=== PATIENT | male | born 1985 | race Caucasian/White ===

== ENCOUNTER 2020-07-26 06:51 | Emergency (ER) | payer MEDICARE, MEDICAID, SELFPAY ==
[2020-07-26 06:53] VITALS: BP 141/84; PULSE 65; RESP 16; TEMP 36.1; O2SAT 99; BMI 24.4
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
[2020-07-26] MEDS: Tetracaine 0.5% Ophthalmic Bottle 1 DRP LEFT EYE (07:15)
[2020-07-26] MEDS: Gentamicin Sulfate 1 OPTH.BTL 1 DRP LEFT EYE (07:30)
== END 2020-07-26 07:45 | disposition home or self-care (01) ==
LOC: ED 07:44
PROVIDERS: Emergency Provider Emergency Medicine
DX: S05.02XA Injury of conjunctiva and corneal abrasion without foreign body, left eye, initial encounter (principal); X58.XXXA Exposure to other specified factors, initial encounter; Z87.891 Personal history of nicotine dependence
CPT/HCPCS: 99282

== ENCOUNTER → 2024-09-12 | Outpatient (CLI) | payer MEDICARE, MEDICAID, SELFPAY ==
[2024-09-12 11:55] LABS: Absolute Lymphocyte Count 3.28 X10^3/uL (0.83-4.51); Absolute Neutrophil Count 5.8 X10^3/uL (2.0-7.7); Basophil# 0.07 X10^3/uL; Basophil% 0.7 % (0-1); Eosinophil# 0.31 X10^3/uL; Hematocrit 44.1 % (40-54); Hemoglobin 14.6 g/dL (13.0-16.5); Lymphocyte # 3.28 X10^3/ul (0.83-4.51); Lymphocyte % 31.7 % (19-41); Mean Corp Hgb Conc 33.1 g/dL (32-36); Mean Corpuscular Volume 84.6 fL (80-94); Mean Platelet Vol. 9.9 fl (6.2-12.0); Monocyte# 0.81 X10^3/uL; Monocyte% 7.8 % (0-10); NRBC Flagged by Analyzer 0 % (0-5); Neutrophil # 5.84 X10^3/uL (2.7-7.7); Neutrophil % 56.4 % (47-70); Platelet Count 233 K/mm3 (150-450); RBC Distribution Width CV 12.9 % (11.6-14.6); RBC Distribution Width SD 39.7 fl (35.1-43.9); Red Blood Count 5.21 M/mm3 (4.6-6.2); White Blood Count 10.4 K/mm3 (4.4-11.0)
[2024-09-12 12:21] LABS: ALB/GLOB Ratio 1.4 RATIO (0.9-2.4); AST(SGOT) 21 U/L (15-37); Alanine Aminotransfer ALT/SGPT 31 U/L (16-61); Albumin, Serum 4.2 g/dL (3.2-5.0); Alkaline Phosphatase 64 U/L (45-117); Anion Gap 5 (5-15); BUN 13 mg/dL (7-18); BUN/Creat Ratio 13.1 RATIO (10-20); Calcium,Total 9.4 mg/dL (8.5-10.1); Chloride 108 mmol/L (98-107); EST Glomerular Filtration Rate 89 mL/min (>60); Est Glom Filt Rate - Afr Amer 108 mL/min (>60); Glucose 85 mg/dL (74-106); Potassium 3.8 mmol/L (3.5-5.1); Protein, Total 7.2 g/dL (6.4-8.2); Sodium Level 141 mmol/L (136-145)
== END | disposition home or self-care (01) ==
LOC: LAB 11:25
PROVIDERS: PCP Nurse Practitioner Family; Referring Provider Nurse Practitioner Acute Care; Visit Provider Nurse Practitioner Acute Care
DX: K62.5 Hemorrhage of anus and rectum (principal); R11.2 Nausea with vomiting, unspecified; R10.30 Lower abdominal pain, unspecified
CPT/HCPCS: 36415; 80053; 85025

== ENCOUNTER → 2024-10-03 | Outpatient (CLI) | payer MEDICARE, MEDICAID, SELFPAY ==
--- NOTE | 2024-10-03 08:33 | US_ITS ---
PROCEDURE: ABDOMEN LIMITED REASON FOR EXAM: N/V PAIN Lower abdominal pain. COMPARISON: None FINDINGS: Liver: Diffusely echogenic suggesting fatty infiltration. It measures 15.4 cm. Gallbladder: No stones, sludge, wall thickening or tenderness. Common bile duct: Normal measuring it measures 3 mm.. Pancreas: Visualized portions are sonographically unremarkable. Visualized portions of the right kidney are unremarkable. No right upper quadrant ascites. US/Abdomen Limited IMPRESSION: Fatty infiltration of the liver. Reading Location: [place] [address]
== END | disposition home or self-care (01) ==
LOC: US 08:31
PROVIDERS: PCP Nurse Practitioner Family; Referring Provider Nurse Practitioner Acute Care; Visit Provider Nurse Practitioner Acute Care
DX: R10.30 Lower abdominal pain, unspecified (principal); R11.2 Nausea with vomiting, unspecified
CPT/HCPCS: 76705

== ENCOUNTER 2024-11-22 09:12 | Day surgery (SDC) | payer MEDICARE, MEDICAID, SELFPAY ==
[2024-11-22] VITALS (10 sets, daily range): BP systolic 99–120; BP diastolic 57–66; PULSE 53–81; RESP 16–18; TEMP 36.2; O2SAT 97–100; BMI 24.7
[2024-11-22] MEDS: Lactated Ringers 1,000 ML 15 ML IV (09:42)
--- NOTE | 2024-11-22 09:50 | PRE.ANES_ITS ---
ASA Classification* ASA Classification ASA Classification: 2 Assessment & Plan Anesthesia* Anesthesia Assessment Anesthesia Assessment: Discussed sedation and/or anesthesia options, risks, benefits, and alternatives with patient/parents/legal guardian/POA. Questions invited. The patient/parents/legal guardian/POA seems to understand and agrees to proceed with anesthesia plan. Reviewed the physical assessment, medical history, allergy history and patient home medications list prior to surgery/procedure/anesthetic and documented any changes. Performed airway and anesthesia risk assessments. Anesthesia Type Anesthesia Type: MAC History Source History Obtained from:: Patient and Chart Anesthesia Focused Assessment* Temperature: 97.1 F Pulse Rate: 81 Blood Pressure: 120/63 Respiratory Rate: 16 Pulse Ox: 100 Oxygen Delivery Method: Room Air Airway Assessment Mouth opens: >3 cm Mallampati Score: I Teeth Condition: Intact Neck Range of motion (ROM): Full ROM Focused Labs Anesthesia Preop lab: CBC WBC 10.4 K/mm3 (4.4-11.0) 09/12/24 11:28 09/12/24 RBC 5.21 M/mm3 (4.6-6.2) 09/12/24 11:28 09/12/24 Hgb 14.6 g/dL (13.0-16.5) 09/12/24 11:28 09/12/24 Hct 44.1 % (40-54) 09/12/24 11:28 09/12/24 Plt Count 233 K/mm3 (150-450) 09/12/24 11:28 09/12/24 CHEMISTRY Potassium 3.8 mmol/L (3.5-5.1) 09/12/24 11:28 09/12/24 Sodium 141 mmol/L (136-145) 09/12/24 11:28 09/12/24 BUN 13 mg/dL (7-18) 09/12/24 11:28 09/12/24 Creatinine 1.00 mg/dL (0.70-1.30) 09/12/24 11:28 09/12/24 Glucose 85 mg/dL (74-106) 09/12/24 11:28 09/12/24 TSH 2.53 uIU/mL (0.358-3.74) 08/13/14 15:46 COAG Pre-Assessment Diagnosis/Proposed Procedure Planned Operative Procedure(s): COLONOSCOPY Anesthesia History 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 When Was Last Pacemaker Check QUESTION #4 FULL TEXT: You/Your Family Experience fever (hyperthermia) with Anesthesia Last Oral Intake Last Oral intake: Last Oral Intake NPO since 06:00 11/22/24 09:33 Meds taken in AM with sips of No 11/22/24 09:33 water? Meds patient instructed to take am of surgery Any additional information?: Yes NPO since: 06:00 (Patient finished prep at 6 AM.) PONV PONV - catering administrative assistant: PONV - catering administrative assistant Female No 11/19/24 14:31 HX of Motion Sickness No 11/19/24 14:31 HX of N/V After Surgery Yes 11/19/24 14:31 Non-Smoker Yes 11/19/24 14:31 Duration of Surgery greater No 11/19/24 14:31 than 60 minutes Number of Risk Factors 2 11/19/24 14:31 PONV Score Moderate Risk 11/19/24 14:31 Height & Weight Height & Weight: Anesthesia: Height & Weight Height 6 ft 11/22/24 09:33 Weight: 82.554 kg 11/22/24 09:33 Body Mass Index (BMI) 24.7 11/22/24 09:33 Respiratory Assessment Respiratory Assessment - catering administrative assistant: Respiratory Tract Infection Hx - catering administrative assistant Hx Respiratory Tract Infection No 11/19/24 14:31 STOP Sleep Apnea STOP Sleep Apnea - catering administrative assistant: STOP Sleep Apnea - catering administrative assistant Hx Hypertension No 11/19/24 14:31 Hx Sleep Apnea No 11/19/24 14:31 CPAP BIPAP Do you snore loudly (louder No 11/19/24 14:31 than talking or can be heard Do you often feel tired/ No 11/19/24 14:31 fatigued/ sleepy during daytime? Has anyone observed you stop No 11/19/24 14:31 breathing during sleep? STOP Results Negative 11/19/24 14:31 QUESTION #5 FULL TEXT : Do you snore loudly (louder than talking or can be heard through closed doors)? Tobacco Use History Tobacco Use History - catering administrative assistant: Tobacco Use History - catering administrative assistant Tobacco Use Smoking Status Former smoker 11/19/24 14:31 Hx Tobacco Use Yes: CINDI DAILY 11/19/24 14:31 Years Smoking Packs Smoked per Day Smoking Cessation Date was No - quit smoking greater 11/19/24 14:31 within the last 15 years than 15 years ago Hx Smoking Cessation Date Hx Smoking Cessation Counseling Any additional information?: Yes Smoking Status: Current every day smoker (Patient smoked marijuana this morning.) Hematologic Medial History Hematologic Hx - catering administrative assistant: Hematologic 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 Specify any problems Hx of Preganancy in last 3 N/A 11/19/24 14:31 Months Nurse Filling Out Transfusion [facility] 11/19/24 14:31 & Questions: Date: 11/19/24 11/19/24 14:31 Time: 14:37 11/19/24 14:31 Patient unable to answer at this time (ie. confused, unrespo /Reproduction History /Reproductive History - catering administrative assistant: /Reproductive Hx- catering administrative assistant Hx Now Gestational Age (in weeks): EDC: Hx Hx Para Hx Section SAB Active Medications Active Medications: Current Medications Generic Name Dose Route Start Last Admin Trade Name Freq PRN Reason Stop Dose Admin Lactated Ringer's 1,000 mls @ 15 mls/hr 11/22/24 09:45 11/22/24 09:42 IV 15 mls/hr .Q48H FRANK Administration PFSH Medical History Wears glasses Depression Anxiety Marijuana use Fatty liver High cholesterol Migraine headache Non-smoker Home Medications ?Medication ?Instructions ?Recorded ?Last Taken ?Type peg 3350-electrolytes 236 240 ml PO Q10M #4,000 mL Unknown Rx gram-22.74 gram-6.74 gram-5.86 gram solution (Golytely) polyethylene glycol 3350 17 238 g PO .COMPLEX #238 gra ms 11/19/24 Unknown Rx gram/dose oral powder (Miralax) Allergy/AdvReac Type Severity Reaction Status Date / Time No Known Allergies Allergy Verified 11/22/24 09:29 Surgical History (Updated 11/22/24 @ 09:[address] Jarocho Houston MD) Enlarged adenoids History of wisdom tooth extraction Social History Smoking Status: Current every day smoker (marijuana) Review of Systems (Anesthesia) ROS Narrative System reviewed and no additional complaints, except as documented.
--- NOTE | 2024-11-22 10:37 | PCM.HP.STD ---
HPI - General General Date of Admission: 11/22/24 Date of Service: 11/22/24 Chief Complaint: Lower GI bleeding HPI Narrative ELAINA RENE is a 39 M who presentsChief Complaint: pain and bleeding Details: ELAINA RENE is a 39 M who presents to the office today for - rectal bleeding, intermittent, can be really bad colors water red - with bowel movements - has a BM daily - bleeding has been ongoing for a couple years - c/o lower abdominal pain - not related to PO intake - non-radiating, intermittent, not always associated with a BM - denies any constipation or diarrhea - denies any straining with BM - intermittent rectal pain after a BM - dull, ache - was on dicyclomine in the past and this caused constipation - c/o nausea associated with headache - reports after vomiting he has resolution of nausea and ROBLEDO - he does endorse N/V without headaches - denies any weight loss - rare HB - vomiting is at least once a month - cannabis smoker - regularly - started smoking in college - denies any EtOH use - rare use of IBU - Caffeine 2-3 cups per day PFSH Medical History Wears glasses Depression Anxiety Marijuana use Fatty liver High cholesterol Migraine headache Non-smoker Home Medications ?Medication ?Instructions ?Recorded ?Last Taken ?Type peg 3350-electrolytes 236 240 ml PO Q10M #4,000 mL 09/12/24 Unknown Rx gram-22.74 gram-6.74 gram-5.86 gram solution (Golytely) polyethylene glycol 3350 17 238 g PO .COMPLEX #238 grams 11/19/24 Unknown Rx gram/dose oral powder (Miralax) Allergy/AdvReac Type Severity Reaction Status Date / Time No Known Allergies Allergy Verified 11/22/24 09:29 Surgical History Enlarged adenoids History of wisdom tooth extraction Social History Smoking Status: Current every day smoker (Patient smoked marijuana this morning.) ROS Constitutional Constitutional: Denies fatigue, fever(s), poor appetite, weight gain or weight loss Gastrointestinal Gastrointestinal: Denies belching, bloating, change in bowel habits, change in stool character, chewing difficulty, coffee ground emesis, constipation, cramping, diarrhea, dyspepsia, dysphagia, early satiety, excessive flatus, fecal incontinence, heartburn, hematemesis, hematochezia, hemorrhoids, loose stools, melena, nausea, odynophagia, rectal bleeding, tenesmus, vomiting or weight changes Vital Signs Vital Signs Vital Signs: 11/22/24 09:31 11/22/24 09:33 11/22/24 09:57 Temperature 97.1 F L 97.1 F L Temperature Source Temporal Pulse Rate 81 81 Respiratory Rate 16 16 Respiratory Pattern Normal Blood Pressure 120/63 120/63 Blood Pressure Mean 82 Blood Pressure Source Monitor Blood Pressure Position Semi-Fowlers Blood Pressure Location Left Arm Pulse Ox 100 100 Oxygen Delivery Method Room Air Room Air Weight Weight: 182 lb Body Mass Index (BMI) 24.7 Physical Exam Const alert, oriented x3, no apparent distress and healthy appearing General Appearance: cooperative GI normal to inspection, nondistended, normoactive bowel sounds, soft to palpation, non-tender and non-distended Percussion: normal to percussion Rectal Exam: deferred Assessment & Plan Assessment/Plan (1) Rectal bleeding: (2) Lower abdominal pain: PLAN: Assessment and Plan Assessment and Plan (1) Abdominal symptoms: (2) Nausea & vomiting: Status: Acute (3) Lower abdominal pain: Status: Acute (4) Rectal bleeding: Status: Acute Orders: Orders CBC W/Diff, Automated Today K62.5 - Hemorrhage of anus and rectum, R10.30 - Lower abdominal pain, unspecified, R11.2 - Nausea with vomiting, unspecified Comprehensive Metabolic Profil Today K62.5 - Hemorrhage of anus and rectum, R10.30 - Lower abdominal pain, unspecified, R11.2 - Nausea with vomiting, unspecified Abdomen Limited Today R10.30 - Lower abdominal pain, unspecified, R11.2 - Nausea with vomiting, unspecified Medications: New pantoprazole take once daily 30 minutes before breakfast 40 mg PO QDAY 90 tabs 1RF peg 3350-electrolytes 236-22.74-6.74 -5.86 gram (Golytely) take as directed for split dose bowel prep 240 mL PO Q10M 4,000 mL 0RF Plan 39y/o male presents for consultation with complaints of rectal bleeding and generalized abdominal pain. He reports experiencing intermittent BRBPR for >2 year with bowel movements. He complains of intermittent lower abdominal pain. Denies any constipation, diarrhea or weight loss. He complains of nausea and vomiting, intermittently associated with headaches. I have started him on a PPI daily and scheduled an ABD US. If symptoms are persisting after 8 weeks of PPI will consider EGD. He will complete labs today and schedule colonoscopy. Patient Instructions: ABD US Complete labs today Colonoscopy - GoLytely Start pantoprazole 40mg daily - x8 weeks if symptoms are persisting will schedule EGD Smoking cessation recommended Plan Details Follow Up: 4 Months (f/u post procedure)
--- NOTE | 2024-11-22 11:19 | OP.COLON_ITS ---
Patient Name: Richy Adan Procedure Date: 11/22/2024 10:42 AM Date of : 1985 Age: 39 Procedure: Colonoscopy Indications: Hematochezia Providers: Jignesh Hampton DO Referring MD: Eulogio Ordaz Medicines: Monitored Anesthesia Care Patient Profile: This is a 39 year old male. Refer to note in patient chart for documentation of history and physical. Last Colonoscopy: none. The patient's first colonoscopy is today. Complications: No immediate complications. Procedure: Pre-Anesthesia Assessment: - Prior to the procedure, a History and Physical was performed, and patient medications and allergies were reviewed. The patient is competent. The risks and benefits of the procedure and the sedation options and risks were discussed with the patient. All questions were answered and informed consent was obtained. Patient identification and proposed procedure were verified by the physician in the pre-procedure area. Mental Status Examination: alert and oriented. Airway Examination: normal oropharyngeal airway and neck mobility. Respiratory Examination: clear to auscultation. CV Examination: normal. Prophylactic Antibiotics: The patient does not require prophylactic antibiotics. Prior Anticoagulants: The patient has taken no anticoagulant or antiplatelet agents except for NSAID medication. ASA Grade Assessment: II - A patient with mild systemic disease. After reviewing the risks and benefits, the patient was deemed in satisfactory condition to undergo the procedure. The anesthesia plan was to use monitored anesthesia care (MAC). Immediately prior to administration of medications, the patient was re-assessed for adequacy to receive sedatives. The heart rate, respiratory rate, oxygen saturations, blood pressure, adequacy of pulmonary ventilation, and response to care were monitored throughout the procedure. The physical status of the patient was re-assessed after the procedure. After I obtained informed consent, the scope was passed under direct vision. Throughout the procedure, the patient's blood pressure, pulse, and oxygen saturations were monitored continuously. The pediatric colonoscope was introduced through the anus and advanced to the terminal ileum. The colonoscopy was performed without difficulty. The patient tolerated the procedure well. The quality of the bowel preparation was adequate. The terminal ileum, ileocecal valve, appendiceal orifice, and rectum were photographed. Scope In: 10:53:55 AM Scope Withdrawal Time 0 hours 8 minutes 3 seconds Scope Out: 11:08:20 AM Total Procedure Duration Time 0 hours 14 minutes 25 seconds Findings: Hemorrhoids were found on perianal exam. The entire examined colon appeared normal on direct and retroflexion views. Non-bleeding external and internal hemorrhoids were found during retroflexion. The hemorrhoids were large and Grade III (internal hemorrhoids that prolapse but require manual reduction). Impression: - Hemorrhoids found on perianal exam. - The entire examined colon is normal on direct and retroflexion views. - Non-bleeding external and internal hemorrhoids. - No specimens collected. Recommendation: - Repeat colonoscopy in 10 years for screening purposes. - Continue present medications. Procedure Code(s): --- Professional --- 19539, Colonoscopy, flexible; diagnostic, including collection of specimen(s) by brushing or washing, when performed (separate procedure) CPT copyright 2021 [employer]. All rights reserved. The codes documented in this report are preliminary and upon technical photographer review may be revised to meet current compliance requirements. Jignesh Hampton DO 11/22/2024 11:18:16 AM This report has been signed electronically. Number of Addenda: 0 Note Initiated On: 11/22/2024 10:42 AM
--- NOTE | 2024-11-22 11:19 | OP.CCLET_ITS ---
11/22/2024 Eulogio Ordaz Re : Colonoscopy procedure for Richy Adan Dear Armani This procedure was performed on November. My impressions and recommendations are as follows: Impressions : - Hemorrhoids found on perianal exam. - The entire examined colon is normal on direct and retroflexion views. - Non-bleeding external and internal hemorrhoids. - No specimens collected. Recommendations : - Repeat colonoscopy in 10 years for screening purposes. - Continue present medications. My findings are described in the full procedure note, which is enclosed. If I can be of further assistance, please feel free to contact me at . Sincerely, Jignesh Hampton, 11/22/2024 11:18:16 AM This report has been signed electronically.
--- NOTE | 2024-11-22 11:31 | PCM.POST.ANE ---
Anesthesia: Postop Eval I Current Vital Signs Temperature: 97.1 F Pulse Rate: 64 Blood Pressure: 104/59 Respiratory Rate: 16 Pulse Ox: 98 Oxygen Delivery Method: Room Air Assessment Airway patent: Yes Spontaneous unlabored respirations: Yes Mental status: Asleep nausea: No Vomiting: No Anesthesia Complication: No Fluid Hydration Crystalloid volume administer (ml): 400 Total IV fluid infused: 400 Progress Note Anesthesia document: Postop Eval 1 completed: Yes
--- NOTE | 2024-11-22 14:54 | PCM.POSTANE2 ---
Anesthesia Postop Eval I Sum Postop Eval Completion status Anesthesia document: Postop Eval 1 completed: Yes Anesthesia Postop Eval I Summary Anesthesia Postop Eval I Summary: Anesthesia Postop Eval I: Assessment Summary Airway patent Yes 11/22/24 11:32 [email or web address] Spontaneous unlabored Yes 11/22/24 11:32 [email or web address] respirations Mental status Asleep 11/22/24 11:32 [email or web address] nausea No 11/22/24 11:32 [email or web address] Vomiting No 11/22/24 11:32 [email or web address] Anesthesia Postop Eval I: Fluid Summary Crystalloid volume administer 400 11/22/24 11:32 [email or web address] (ml) Colloids volume administered ( ml) Blood Product volume administered (ml) Total IV fluid infused 400 11/22/24 11:32 [email or web address] Anesthesia Postop Eval I: Summary Notes Anesthesia Complication No 11/22/24 11:32 [email or web address] Anesthesia Complication Comment: Post-operative progress note Anesthesia: Postop Eval II Evaluation Mental status: Awake and Calm Pain Level: 0 nausea: No Vomiting: No Complications Anesthesia Complication: No
== END 2024-11-22 11:59 | disposition home or self-care (01) ==
LOC: EN 09:13 → AC 09:13
PROVIDERS: PCP Nurse Practitioner Family; Referring Provider Nurse Practitioner Family; Visit Provider Internal Medicine Gastroenterology
PROC: 0DJD8ZZ Inspection of Lower Intestinal Tract, Via Natural or Artificial Opening Endoscopic (ICD-10-PCS; CPT 45378; principal; 2024-11-22 10:10)
DX: K64.2 Third degree hemorrhoids (principal); E78.00 Pure hypercholesterolemia, unspecified; K64.4 Residual hemorrhoidal skin tags; Z87.891 Personal history of nicotine dependence
CPT/HCPCS: 45378; J2405

== ENCOUNTER → 2024-12-31 | Outpatient (CLI) | payer MEDICARE, MEDICAID, SELFPAY ==
[2024-12-31 10:44] LABS: Hepatitis B Surface Antibody Nonreactive
--- OUTSIDE RECORDS SUMMARY | 2024-12-31 11:24 | XMS RPT_ITS | CCD ---
Author Organization [facility] Care Team Providers Care Prop Attendant Name Role Phone Trill PSYCHOLOGIST MILITARY PERSONNEL.Tc AMCKEY Primary Care Provider Geneiveve Barcenas (Historical) Unavailable U navailable ELAINA STRICKLAND Attending Unavailable TC ALY Primary Care Unavailable SHLOMO HAAS Attending Unavailable ELAINA STRICKLAND Referring Unavailable TC ALY Primary Care Unavailable Trill PSYCHOLOGIST MILITARY PERSONNEL.Tc MACKEY Primary Care Provider TC ALY Primary Care Unavailable JOYCE ANTON Attending Unavailable SELF Referring Unavailable TC ALY Primary Care Unavailable JOYCE ANTON Referring Unavailable Care Physician, No Primary Primary Care Provider Unavailable Care Physician, No Primary Referring Provider Un available Reese CALCULATING MACHINE MECHANIC-CBess Attending Provider Trilisa CALCULATING MACHINE MECHANIC-C, Tc Primary Care Provider Reese CALCULATING MACHINE MECHANIC-CBess Referring Provider Bess Leigh Attending Unavailable Care Physician, No Primary Referring Unava ilable Trill CALCULATING MACHINE MECHANIC, Tc Primary Care Unavailable Care Physician, No Primary Primary Care Unava ilable Bses Leigh Attending Unavailable Care Physician, No Primary Referring Unava ilable Friend, Jignesh Consulting Unavailable Friend, Ijgnesh Attending Unavailable Trill CALCULATING MACHINE MECHANIC, Tc Primary Care Unavailable Trill CALCULATING MACHINE MECHANICSukumarTc Referring Unavailable Trill CALCULATING MACHINE MECHANIC, Tc Referring Unavailable Friend, Jignesh Attending Unavailable Trill CALCULATING MACHINE MECHANIC, Tc Primary Care Unavailable Bess Leigh Attending Unavailable Bess Leigh Referring Unavailable Trill CALCULATING MACHINE MECHANIC, Tc Primary Care Unavailable Bess Leigh Attending Unavailable ReeseBess Referring Unavailable Trill CALCULATING MACHINE MECHANIC, Tc Primary Care Unavailable Medications Current Medications Medication Drug Class(es) Dates Sig (Normalized) Sig (Original) glycerin 144 mg/ml / petrolatum 150 mg/ml / phenylephrine hydrochloride 2.5 mg/ml / pramoxine hydrochloride 10 mg/ml rectal cream (3 sources) Non-Standardized Chemical Allergen, alpha-1 Adrenergic Agonist Start: 07-24-2024 phenyleph-pramoxin f-bnbxyqdy-mmdwe petrolatum (PREPARATION H) 0.25-1 % crea Indications: Hemorrhoids, unspecified hemorrhoid type by RECTAL route three times a day as needed. 26 g 1 07/24/2024 Active [place] (Nk) (1 source) Start: 07-26-2020 [place] (Nk) Active July 26, 2020 1:00am pantoprazole 40 mg delayed release oral tablet (1 source) Proton Pump Inhibitor Start: 09-12-2024 take 1 tablet by mouth once daily 30 minutes before breakfast Pantoprazole 40 mg tablet,delayed release (DR/EC) Active 40 mg PO daily September 12, 2024 1:00am take once daily 30 minutes before breakfast polyethylene glycol 3350 389042 mg / potassium chloride 2970 mg / sodium bicarbonate 6740 mg / sodium chloride 5860 mg / sodium sulfate 43477 mg powder for oral solution (1 source) Osmotic Laxative Start: 09-12-2024 Peg 3350-Electrolytes (Golytely) 236-22.74-6.74 -5.86 gram recon soln Active 240 mL PO Q10M 4000 September 12, 2024 1:00am take as directed for split dose bowel prep Completed/Discontinued Medications Medication Drug Class(es) Dates Sig (Normalized) Sig (Original) hydrocortisone acetate 25 mg rectal suppository (2 sources) Corticosteroid Start: 09-17-2022 End: 09-20-2022 hydrocortisone (ANUSOL-HC) 25 mg suppository 1 Suppository by RECTAL route every 12 hours. 60 Each 0 09/17/2022 09/20/2022 Discontinued Comment on above: 1 Suppository by REC VIRAJ route every 12 hours. hydrocortisone-pramo xine (PRAMOX) 25-18 mg suppository (6 sources) Start: 09-20-2022 End: 04-28-2023 hydrocortisone-pram oxine (PRAMOX) 25-18 mg suppository Indications: Hemorrhoids, unspecified hemorrhoid type 1 Suppository by RECTAL route twice daily. 28 Suppository 0 09/20/2022 04/28/2023 Discontinued (Course of therapy completed) Start: 09-20-2022 hydrocortisone -pramoxine (PRAMOX) 25-18 mg suppository Indications: Hemorrhoids, unspecified hemorrhoid type 1 Suppository by RECTAL route twice daily. 28 Suppository 0 09/20/2022 Active Comment on above: 1 Suppository by REC VIRAJ route twice daily. Problems Active Problems Problem Classification Problem Date Documented Da te Episodic/Chronic Abdominal hernia (1 source) Umbilical hernia; Translations: [Umbilical hernia without obstruction or gangrene] 04-28-2023 Episodic Abdominal pain (9 sources) Lower abdominal pain; Translations: [Lower abdominal pain, unspecified] Onset: 07-24-2024 Episodic Anal and rectal conditions (1 source) Rectal pain; Translations: [Other specified diseases of anus and rectum] Episodic Anxiety disorders (20 sources) Social phobia; Translations: [Social phobia, unspecified] Onset: 10-18-2014 10-18-2014 Chronic Contraceptive and procreative management (2 sources) Encounter for sterilization; Translations: [Encounter for other general counseling and advice on contraception] Onset: 06-15-2022 Episodic Gastrointestinal hemorrhage (10 sources) Rectal hemorrhage; Translations: [Hemorrhage of anus and rectum] Onset: 07-24-2024 Episodic Hemorrhoids (16 sources) Hemorrhoids; Translations: [Unspecified hemorrhoids] Onset: 09-17-2022 Episodic Immunizations and screening for infectious disease (2 sources) Viral screening status; Translations: [Encounter for screening for other viral diseases] Episodic Other gastrointestinal disorders (1 source) Finding of abdomen; Translations: [Other specified symptoms and signs involving the digestive system and abdomen] 09-12-2024 Episodic Other liver diseases (1 source) Steatosis of liver; Translations: [Fatty (change of) liver, not elsewhere classified] 10-03-2024 Chronic Other screening for suspected conditions (not mental disorders or infectious disease) (8 sources) Patient encounter status; Translations: [Encounter for screening for diabetes mellitus] Onset: 07-24-2024 Episodic Superficial injury; contusion (1 source) Corneal abrasion; Translations: [Injury of conjunctiva and corneal abrasion without foreign body, unspecified eye, initial encounter] 07-27-2020 Episodic Past or Other Problems Problem Classification Problem Date Documented Da te Episodic/Chronic Nausea and vomiting (15 sources) Nausea and vomiting; Translations: [Nausea with vomiting, unspecified] Onset: 10-18-2014 10-18-2014 Episodic Results Test Name Value Interpretation Reference Range Facility Gastroenterology Visit Repor ton 12-13-2024 Gastroenterology Visit Report [facility] [address] [place] [address] OFFICE VISIT Date of Service: 12/13/24 MR#: [id number] Acct: [id number] Name: ELAINA ADAN AM Rep #: [id number] : 1985 Provider: BOBY reis Age/Sex: 39/M Location: [facility] Status: Signed Intake Vital Signs 09/12/24 10:38 11/22/24 09:33 12/13/24 10:08 Height 6 ft 6 ft 6 ft Weight: 186 lb 6 oz BMI 25.2 BP 112/72 Respiration 16 Pulse 57 L Pulse Oximetry (%) 98 Oxygen Delivery Method room air Intake Visit Reasons: 3 M FU Chief Complaint: follow-up Clinical Lab Assistant Required: No Accompanied by: Self Is patient in pain?: Yes Allergies No Known Allergies Allergy (Verified 12/13/24 10:05) Medications ???Medication ???Instructions ???Recorded ???Confirmed ???Type pantoprazole 40 mg tablet,delayed 40 mg PO QDAY #90 tabs 12/13/24 0 12/13/24 Rx release PFSH Medical History Wears glasses Depression Anxiety Marijuana use Fatty liver High cholesterol Migraine headache Non-smoker Surgical History Enlarged adenoids History of wisdom tooth extraction Social History Smoking Status: Current every day smoker (Patient smoked marijuana this morning.) tobacco type: cigarettes HPI HPI Chief Complaint: follow-up Details: ELAINA ADAN, is a 39 M who presents to the office today for OV 09/12/2024 39y/o male presents for consultation with complaints of rectal bleeding and generalized abdominal pain. He reports experiencing intermittent BRBPR for >2 year with bowel movements. He complains of intermittent lower abdominal pain. Denies any constipation, diarrhea or weight loss. He complains of nausea and vomiting, intermittently associated with headaches. I have started him on a PPI daily and scheduled an ABD US. If symptoms are persisting after 8 weeks of PPI will consider EGD. He will complete labs today and schedule colonoscopy. Patient Instructions: ABD US Complete labs today Colonoscopy - GoLytely Start pantoprazole 40mg daily - x8 weeks if symptoms are persisting will schedule EGD Smoking cessation recommended COLON 11/22/2024 - Hemorrhoids found on perianal exam. - The entire examined colon is normal on direct and retroflexion views. - Non-bleeding external and internal hemorrhoids. - No specimens collected. Recommendation: - Repeat colonoscopy in 10 years for screening purposes. HAV Total Ab: HBVsAg: HBVsAb: HBV Core Ab Total: HCV Ab: CBC: CMP: 09/12/2024 Tbili 1.40 TSH: LIPID: A1C: ELF: ABD US: 10/03/2024 fatty infiltration of the liver FibroScan: Elastography: WEIGHT: 186lbs stable - he has occasional BRBPR with BM, usually a small amount on tissue - overall he feels fatigued - he is exercising - RUQ and right flank pain, hurts more in the evening or outreach specialist, usually resolves with a hot shower - right flank pain x6 months - RUQ pain for a long time - reports this is there every day, the intensity waxes and wanes - scromits - denies any N/V - pain does not worsen with PO intake, does not prevent him form sleeping - denies any ROBLEDO - cannabis smoker - regularly - started smoking in college - denies any EtOH use - rare use of IBU - Caffeine 2-3 cups per day - he never took the pantoprazole - reports his was talking to Dr. Friend - he is not diabetic - denies any h/o HTN or HLD - denies any h/o autoimmune conditions - Mother with Thyroid CA ROS Const Constitutional: Positive for fatigue; No fever(s) or weight change ENT ENT: No difficulty swallowing Gastro GI: Positive for abdominal pain and Blood in stool; No belching, bloating, change in bowel habits, change in stool character, coffee ground emesis, constipation, cramping, diarrhea, heartburn, difficulty swallowing, feeling full early, excessive flatus, incontinent of stools, Vomiting blood/hematemesis, loose stools, Black,tarry stools, nausea/dyspepsia, pain with swallowing, vomiting or other Musc Musculoskeletal: Positive for back pain and muscle weakness; No joint pain Skin Skin: No yellowing of the eye or itchy eyes Psych Psychiatric: Positive for anxiety and No depression Endo Endocrine: Positive for fatigue; No weight change Aller/Imm Allergy/Immunologic: No itchy eyes Jose Luis/Lymp Hematologic/Lymphatic: No easy bleeding or easy bruising Exam Const General: cooperative, healthy appearing, no acute distress and well developed Nutritional Appearance: average body habitus and well nourished Orientation: alert and oriented x3 HENMT Head: normocephalic Ears: hearing grossly normal bilaterally Mouth: moist mucous membranes Teeth and (more content not included)... Normal [facility] Colonoscopy Reporton 025 Colonoscopy Report [facility] Medical Records Department [address] [place] [address] Colonoscopy Report MR#: [id number] Acct: [id number] Name: ELAINA ADAN AM Rep #: [id number] : 1985 39 From: Jignesh Hampton DO PCP: BOBY Ordaz Status:REG [facility] Patient Name: Elaina Adan Procedure Date: 11/22/2024 10:42 AM Date of : 1985 Age: 39 Procedure: Colonoscopy Indications: Hematochezia Providers: Jignesh Hampton DO Referring MD: Boby Ordaz Medicines: Monitored Anesthesia Care Patient Profile: This is a 39 year old male. Refer to note in patient chart for documentation of history and physical. Last Colonoscopy: none. The patient's first colonoscopy is today. Complications: No immediate complications. Procedure: Pre-Anesthesia Assessment: - Prior to the procedure, a History and Physical was performed, and patient medications and allergies were reviewed. The patient is competent. The risks and benefits of the procedure and the sedation options and risks were discussed with the patient. All questions were answered and informed consent was obtained. Patient identification and proposed procedure were verified by the physician in the pre-procedure area. Mental Status Examination: alert and oriented. Airway Examination: normal oropharyngeal airway and neck mobility. Respiratory Examination: clear to auscultation. CV Examination: normal. Prophylactic Antibiotics: The patient does not require prophylactic antibiotics. Prior Anticoagulants: The patient has taken no anticoagulant or antiplatelet agents except for NSAID medication. ASA Grade Assessment: II - A patient with mild systemic disease. After reviewing the risks and benefits, the patient was deemed in satisfactory condition to undergo the procedure. The anesthesia plan was to use monitored anesthesia care (MAC). Immediately prior to administration of medications, the patient was re-assessed for adequacy to receive sedatives. The heart rate, respiratory rate, oxygen saturations, blood pressure, adequacy of pulmonary ventilation, and response to care were monitored throughout the procedure. The physical status of the patient was re-assessed after the procedure. After I obtained informed consent, the scope was passed under direct vision. Throughout the procedure, the patient's blood pressure, pulse, and oxygen saturations were monitored continuously. The pediatric colonoscope was introduced through the anus and advanced to the terminal ileum. The colonoscopy was performed without difficulty. The patient tolerated the procedure well. The quality of the bowel preparation was adequate. The terminal ileum, ileocecal valve, appendiceal orifice, and rectum were photographed. Scope In: 10:53:55 AM Scope Withdrawal Time 0 hours 8 minutes 3 seconds Scope Out: 11:08:20 AM Total Procedure Duration Time 0 hours 14 minutes 25 seconds Findings: Hemorrhoids were found on perianal exam. The entire examined colon appeared normal on direct and retroflexion views. Non-bleeding external and internal hemorrhoids were found during retroflexion. The hemorrhoids were large and Grade III (internal hemorrhoids that prolapse but require manual reduction). Impression: - Hemorrhoids found on perianal exam. - The entire examined colon is normal on direct and retroflexion views. - Non-bleeding external and internal hemorrhoids. - No specimens collected. Recommendation: - Repeat colonoscopy in 10 years for screening purposes. - Continue present medications. Procedure Code(s): --- Professional --- 81066, Colonoscopy, flexible; diagnostic, including collection of specimen(s) by brushing or washing, when performed (separate procedure) CPT copyright 2021 [employer]. All rights reserved. The codes documented in this report are preliminary and upon misdraw hand review may be revised to meet current compliance requirements. Jignesh Hampton DO 11/22/2024 11:18:16 AM This report has been signed electronically. Number of Addenda: 0 Note Initiated On: 11/22/2024 10:42 AM 11/22/24 1118 Date Jignesh Velazquez Signature: Date (if indicated) CC: CALCULATING MACHINE MECHANICTyrellC Tc Aly; Jignesh Hampton DO Date Dictated: 11/22/24 1042 Date Transcribed: Candle Molder Machine: PK Signed [facility] MR/[facility]OP.[facility] Medical Records Department [address] [place] [address] Anesthesia Postop Eval I 11/22/24 1131 MR#: [id number] Acct: [id number] Name: EDGARDELAINA VALENZUELA Rep #: [id number] : 1985 39 From: Lucio Schultz PCP: BOBY Ordaz Status:REG SDC Y Race: C Location: [place] [address] Anesthesia: Postop Eval I Current Vital Signs Temperature: 97.1 F Pulse Rate: 64 Blood Pressure: 104/59 Respiratory Rate: 16 Pulse Ox: 98 Oxygen Delivery Method: Room Air Assessment Airway patent: Yes Spontaneous unlabored respirations: Yes Mental status: Asleep nausea: No Vomiting: No Anesthesia Complication: No Fluid Hydration Crystalloid volume administer (ml): 400 Total IV fluid infused: 400 Progress Note Anesthesia document: Postop Eval 1 completed: Yes 11/22/24 1132 Date Lucio Huerta Signature: Date CC: Signed Normal [facility] [id number] 11-22-2024 MR/POSTOPAN2 [facility] Medical Records Department [address] [place] [address] Anesthesia Postop Eval II 11/22/24 1454 MR#: [id number] Acct: [id number] Name: ELAINA ADAN AM Rep #: [id number] : 1985 39 From: Jarocho Houston MD PCP: Tc Aly NP-C Status:DEP [facility] Y Race: C Location: EN Anesthesia Postop Eval I Sum Postop Eval Completion status Anesthesia document: Postop Eval 1 completed: Yes Anesthesia Postop Eval I Summary Anesthesia Postop Eval I Summary: Anesthesia Postop Eval I: Assessment Summary Airway patent Yes 11/22/24 11:32 [email or web address] Spontaneous unlabored Yes 11/22/24 11:32 [email or web address] respirations Mental status Asleep 11/22/24 11:32 [email or web address] nausea No 11/22/24 11:32 [email or web address] Vomiting No 11/22/24 11:32 [email or web address] Anesthesia Postop Eval I: Fluid Summary Crystalloid volume administer 400 11/22/24 11:32 [email or web address] (ml) Colloids volume administered ( ml) Blood Product volume administered (ml) Total IV fluid infused 400 11/22/24 11:32 [email or web address] Anesthesia Postop Eval I: Summary Notes Anesthesia Complication No 11/22/24 11:32 [email or web address] Anesthesia Complication Comment: Post-operative progress note Anesthesia: Postop Eval II Evaluation Mental status: Awake and Calm Pain Level: 0 nausea: No Vomiting: No Complications Anesthesia Complication: No 11/22/24 1500 Date Jarocho Houston MD Cosigner Signature: Date CC: Signed Normal [facility] Abdomen Limitedon 10-03-2024 Abdomen Limited [facility] Imaging Services [address] [place], [place] [address] Abdomen Limited MR#: [id number] Acct: [id number] Name: ELAINA ADAN AM Rep #: [id number] : 1985 M 39 From: Stewart angela MD PCP: BOBY Ordaz Status: REG CLI Study: Abdomen Limited Date of Exam: 10/03/24 Exam# [id number] Ordering Dr: Bess Leigh PROCEDURE: ABDOMEN LIMITED REASON FOR EXAM: N/V PAIN Lower abdominal pain. COMPARISON: None FINDINGS: Liver: Diffusely echogenic suggesting fatty infiltration. It measures 15.4 cm. Gallbladder: No stones, sludge, wall thickening or tenderness. Common bile duct: Normal measuring it measures 3 mm.. Pancreas: Visualized portions are sonographically unremarkable. Visualized portions of the right kidney are unremarkable. No right upper quadrant ascites. US/Abdomen Limited IMPRESSION: Fatty infiltration of the liver. Reading Location: [place] [address] CC: BOBY Leigh; BOBY Aly Candle Molder Machine: Signed Normal [facility] Absolute neutrophil countOrd ered By: Bess Leigh on 09-12-2024 Neutrophils (Bld) [#/Vol] 5.8 10*3/uL 2.0-7.7 [facility] Albumin to globulin ratioOrd ered By: Bess Leigh on 09-12-2024 Albumin/Globulin [Mass ratio] 1.4 {ratio} 0.9-2.4 [facility] Basophil percentageOrdered B y: Bess Leigh on 09-12-2024 Basophils/100 WBC (Bld) 0.7 % 0-1 [facility] Bilirubin, totalOrdered By: Bess Leigh on 09-12-2024 Bilirubin [Mass/Vol] 1.40 mg/dL High 0.20-1.00 [facility] Comment on above: For patients on eltr ombopag therapy, use of Dimension Pettus TBIL is not recommended. Blood urea nitrogen (BUN)/cr eatinine ratioOrdered By: Bess Leigh on 09-12-2024 Urea nitrogen/Creatinine [Mass ratio] 13.1 mg/mg 10-20 [facility] CBC W/Diff, Automatedon 08-25 Absolute Lymph 3.28 X10 3/uL Normal 0.83-4.51 [facility] Comment on above: Performed By: #### L 500.4050, L100.0100 #### [facility] [address] [place], [address] Absolute Neut 5.8 X10 3/uL Normal 2.0-7.7 [facility] Comment on above: Performed By: #### L 500.4050, L100.0100 #### [facility] [address] [place], [address] Basophils/100 WBC (Bld) 0.7 % Normal 0-1 [facility] Comment on above: Performed By: #### L 500.4050, L100.0100 #### [facility] [address] [place], [address] Eosinophils/100 WBC (Bld) 3.0 % Normal 0-5 [facility] Comment on above: Performed By: #### L 500.4050, L100.0100 #### [facility] [address] [place], [address] Erythrocyte distribution width (RBC) [Ratio] 12.9 % Normal 11.6-14.6 [facility] Comment on above: Performed By: #### L 500.4050, L100.0100 #### [facility] [address] [place], [address] Hematocrit (Bld) [Volume fraction] 44.1 % Normal 40-54 [facility] Comment on above: Performed By: #### L 500.4050, L100.0100 #### [facility] [address] [place], [address] Hemoglobin (Bld) [Mass/Vol] 14.6 g/dL Normal 13.0-16.5 [facility] Comment on above: Performed By: #### L 500.4050, L100.0100 #### [facility] [address] [place], [address] IG% 0.400 Normal 0.0-0.9 [facility] Comment on above: Result Comment: IG% - Immature Granulocytes (promyelocytes, myelocytes and metamyelocytes) > 1% indicates that a LEFT SHIFT is Present. Performed By: #### L 500.4050, L100.0100 #### [facility] [address] [place], [address] Lymphocytes/100 WBC (Bld) 31.7 % Normal 19-41 [facility] Comment on above: Performed By: #### L 500.4050, L100.0100 #### [facility] [address] [place], [address] MCH (RBC) [Entitic mass] 28.0 pg Normal 27.0-32.0 [facility] Comment on above: Performed By: #### L 500.4050, L100.0100 #### [facility] [address] [place], [address] MCHC (RBC) [Mass/Vol] 33.1 g/dL Normal 32-36 [facility] Comment on above: Performed By: #### L 500.4050, L100.0100 #### [facility] [address] [place], [address] MCV (RBC) [Entitic vol] 84.6 fL Normal 80-94 [facility] Comment on above: Performed By: #### L 500.4050, L100.0100 #### [facility] [address] [place], [address] Monocytes/100 WBC (Bld) 7.8 % Normal 0-10 [facility] Comment on above: Performed By: #### L 500.4050, L100.0100 #### [facility] [address] [place], [address] Neutrophils/100 WBC (Bld) 56.4 % Normal 47-70 [facility] Comment on above: Performed By: #### L 500.4050, L100.0100 #### [facility] [address] [place], [address] Nucleated RBC (Bld) [#/Vol] 0 10*3/uL Normal 0-5 [facility] Comment on above: Performed By: #### L 500.4050, L100.0100 #### [facility] [address] [place], [address] Platelet mean volume (Bld) [Entitic vol] 9.9 fL Normal 6.2-12.0 [facility] Comment on above: Performed By: #### L 500.4050, L100.0100 #### [facility] [address] [place], [address] Platelets (Bld) [#/Vol] 233 10*3/uL Normal 150-450 [facility] Comment on above: Performed By: #### L 500.4050, L100.0100 #### [facility] [address] [place], [address] RBC (Bld) [#/Vol] 5.21 10*6/uL Normal 4.6-6.2 [facility] Comment on above: Performed By: #### L 500.4050, L100.0100 #### [facility] [address] [place], [address] RDW SD 39.7 fl Normal 35.1-43.9 [facility] Comment on above: Performed By: #### L 500.4050, L100.0100 #### [facility] [address] [place], [address] WBC (Bld) [#/Vol] 10.4 10*3/uL Normal 4.4-11.0 [facility] Comment on above: Performed By: #### L 500.4050, L100.0100 #### [facility] Laboratory [address] [place], [address] Carbon dioxide measurementOr dered By: Bess Leigh on 09-12-2024 CO2 [Moles/Vol] 28.0 mmol/L 21.0-32.0 [facility] Chloride measurementOrdered By: Bess Leigh on 09-12-2024 Chloride [Moles/Vol] 108 mmol/L High 98-107 [facility] Comprehensive Metabolic Prof ilon 09-12-2024 Albumin [Mass/Vol] 4.2 g/dL Normal 3.2-5.0 [facility] Comment on above: Performed By: #### L 500.4050, L100.0100 #### [facility] [address] [place], [address] Albumin/Globulin [Mass ratio] 1.4 {ratio} Normal 0.9-2.4 [facility] Comment on above: Performed By: #### L 500.4050, L100.0100 #### [facility] [address] [place], [address] ALK P 64 U/L Normal 45-117 [facility] Comment on above: Performed By: #### L 500.4050, L100.0100 #### [facility] [address] [place], [address] ALT [Catalytic activity/Vol] 31 U/L Normal 16-61 [facility] Comment on above: Performed By: #### L 500.4050, L100.0100 #### [facility] [address] [place], [address] AST [Catalytic activity/Vol] 21 U/L Normal 15-37 [facility] Comment on above: Performed By: #### L 500.4050, L100.0100 #### [facility] [address] [place], [address] Bilirubin [Mass/Vol] 1.40 mg/dL High 0.20-1.00 [facility] Comment on above: Result Comment: For patients on eltrombopag therapy, use of Dimension Pettus TBIL is not recommended. Performed By: #### L 500.4050, L100.0100 #### [facility] [address] [place], [address] BUN/CRE 13.1 RATIO Normal 10-20 [facility] Comment on above: Performed By: #### L 500.4050, L100.0100 #### [facility] [address] [place], [address] CA,Total 9.4 mg/dL Normal 8.5-10.1 [facility] Comment on above: Performed By: #### L 500.4050, L100.0100 #### [facility] [address] [place], [address] Chloride [Moles/Vol] 108 mmol/L High 98-107 [facility] Comment on above: Performed By: #### L 500.4050, L100.0100 #### [facility] [address] [place], [address] CO2 [Moles/Vol] 28.0 mmol/L Normal 21.0-32.0 [facility] Comment on above: Performed By: #### L 500.4050, L100.0100 #### [facility] [address] [place], [address] Creatinine [Mass/Vol] 1.00 mg/dL Normal 0.70-1.30 [facility] Comment on above: Result Comment: The validity of the calculated GFR GFRAA in patients over 70 years has not been determined. Clinical correlation is essential. Performed By: #### L 500.4050, L100.0100 #### [facility] [address] [place], [address] EST GFR - AA 108 mL/min Normal >60 [facility] Comment on above: Result Comment: Afri can [place] GFR Calc Performed By: #### L 500.4050, L100.0100 #### [facility] [address] [place], [address] GAP 5 Normal 5-15 [facility] Comment on above: Performed By: #### L 500.4050, L100.0100 #### [facility] [address] [place], [address] GFR/1.73 sq M.predicted among non-blacks MDRD (S/P/Bld) [Vol rate/Area] 89 mL/min/{1.73_m2} Normal >60 [facility] Comment on above: Result Comment: Non- GFR Calc Performed By: #### L 500.4050, L100.0100 #### [facility] [address] [place], [address] Globulin (S) [Mass/Vol] 3.0 g/dL Normal 2.2-4.2 [facility] Comment on above: Performed By: #### L 500.4050, L100.0100 #### [facility] [address] [place], [address] Glucose [Mass/Vol] 85 mg/dL Normal 74-106 [facility] Comment on above: Performed By: #### L 500.4050, L100.0100 #### [facility] [address] [place], [address] Potassium [Moles/Vol] 3.8 mmol/L Normal 3.5-5.1 [facility] Comment on above: Performed By: #### L 500.4050, L100.0100 #### [facility] [address] [place], [address] Sodium [Moles/Vol] 141 mmol/L Normal 136-145 [facility] Comment on above: Performed By: #### L 500.4050, L100.0100 #### [facility] [address] [place], [address] T PROT 7.2 g/dL Normal 6.4-8.2 [facility] Comment on above: Performed By: #### L 500.4050, L100.0100 #### [facility] [address] [place], [address] Urea nitrogen [Mass/Vol] 13 mg/dL Normal 7-18 [facility] Comment on above: Performed By: #### L 500.4050, L100.0100 #### [facility] [address] [place], [address] Eosinophil percentageOrdered By: Bess Leigh on 09-12-2024 Eosinophils/100 WBC (Bld) 3.0 % 0-5 [facility] Erythrocyte distribution wid th ratioOrdered By: Bess Leigh on 09-12-2024 Erythrocyte distribution width (RBC) [Ratio] 12.9 % 11.6-14.6 [facility] Erythrocyte distribution wid th standard deviationOrdered By: Bess Leigh on 09-12-2024 Erythrocyte distribution width (RBC) [Entitic vol] 39.7 fL 35.1-43.9 [facility] Estimated glomerular filtrat ion rate (GFR) AmericanOrdered By: Bess Leigh on 09-12-2024 Estimated GFR (MDRD) Amer 108 mL/min >60 [facility] Comment on above: GFR Calc Gastroenterology Visit Repor ton 09-12-2024 Gastroenterology Visit Report [facility] Gastroenterology [address] [place] [address] OFFICE VISIT Date of Service: 09/12/24 MR#: [id number] Acct: [id number] Name: ELAINA ADAN AM Rep #: [id number] : 1985 Provider: BOBY reis Age/Sex: 39/M Location: [facility] Status: Signed Intake Vital Signs 09/12/24 10:38 Height 6 ft Weight: 186 lb BMI 25.2 BP 128/83 H Respiration 18 Pulse 98 Pulse Oximetry (%) 98 Oxygen Delivery Method room air Intake Visit Reasons: Abdominal complaints Chief Complaint: pain and bleeding Clinical Lab Assistant Required: No Is patient in pain?: No Allergies No Known Allergies Allergy (Verified 09/12/24 10:32) Medications ???Medication ???Instructions ???Recorded ???Confirmed ???Type NK 07/26/20 09/12/24 History pantoprazole 40 mg tablet,delayed 40 mg PO QDAY #90 tabs 09/12/24 0 09/12/24 Rx release peg 3350-electrolytes 236 240 ml PO Q10M #4,000 mL 09/12/24 09/12/24 Rx gram-22.74 gram-6.74 gram-5.86 gram solution (Golytely) PFSH Social History Smoking Status: Current every day smoker (marijuana) HPI HPI Chief Complaint: pain and bleeding Details: ELAINA ADAN, is a 39 M who presents to the office today for - rectal bleeding, intermittent, can be really bad colors water red - with bowel movements - has a BM daily - bleeding has been ongoing for a couple years - c/o lower abdominal pain - not related to PO intake - non-radiating, intermittent, not always associated with a BM - denies any constipation or diarrhea - denies any straining with BM - intermittent rectal pain after a BM - dull, ache - was on dicyclomine in the past and this caused constipation - c/o nausea associated with headache - reports after vomiting he has resolution of nausea and ROBLEDO - he does endorse N/V without headaches - denies any weight loss - rare HB - vomiting is at least once a month - cannabis smoker - regularly - started smoking in college - denies any EtOH use - rare use of IBU - Caffeine 2-3 cups per day ROS Const Constitutional: Positive for fatigue and headache(s); No fever(s) or weight change ENT ENT: Positive for headache(s); No difficulty swallowing Gastro GI: Positive for abdominal pain, Blood in stool and nausea/dyspepsia; No belching, bloating, change in bowel habits, change in stool character, coffee ground emesis, constipation, cramping, diarrhea, heartburn, difficulty swallowing, feeling full early, excessive flatus, incontinent of stools, Vomiting blood/hematemesis, loose stools, Black,tarry stools, pain with swallowing, vomiting or other Musc Musculoskeletal: Positive for back pain and muscle weakness; No joint pain Skin Skin: No yellowing of the eye or itchy eyes Neuro Neurology: Positive for headache(s) Psych Psychiatric: Positive for anxiety and No depression Endo Endocrine: Positive for fatigue; No weight change Aller/Imm Allergy/Immunologic: No itchy eyes Jose Luis/Lymp Hematologic/Lymphatic: No easy bleeding or easy bruising Exam Const General: cooperative, healthy appearing, no acute distress and well developed Nutritional Appearance: average body habitus and well nourished Orientation: alert and oriented x3 [facility] Head: normocephalic Ears: hearing grossly normal bilaterally Mouth: moist mucous membranes Teeth and gingiva: dentition normal Eyes Conjunctivae: conjunctivae normal Sclera: sclerae normal Neck Neck: normal visual inspection, full ROM and trachea midline Resp Effort Inspection: normal respiratory effort, able to speak in complete sentences and symmetric chest movement Auscultation: Bilateral: Clear to Auscultation Cardio Palpation: normal PMI Rate: regular rate Rhythm: regular rhythm Heart Sounds: S1 normal and S2 normal GI Inspection: normal to inspection Auscultation: normal bowel sounds Palpation: soft and no hepatosplenomegaly Rectal Exam: deferred Other: small umbilical hernia Skin General: no rashes or lesions noted and turgor normal Neuro General: patient alert and patient oriented x3 Cranial Nerves: other (CN's grossly intact, non-focal exam) Cognition: normal cognition Speech: speech normal Gait: normal gait Extrem General: normal to inspection (no edema noted) Psych Appearance: grossly normal and well kempt Affect: normal affect Attitude: cooperative Thought Process: normal Assessment and Plan Assessment and Plan (1) Abdominal symptoms: (2) Nausea vomiting: Status: Acute (3) Lower abdominal pain: Status: Acute (4) Rectal bleeding: Status: Acute Orders: Orders CBC W/Diff, Automated Today K62.5 - Hemorrhage of anus and rectum, R10.30 - Lower abdominal pain, unspecified, R11.2 - Nausea with vomitin (more content not included)... Normal [facility] Glomerular filtration rate ( GFR) estimationOrdered By: Bess Leigh on 09-12-2024 Estimated GFR (MDRD) Non-Af Amer 89 mL/min >60 [facility] Comment on above: Non- GFR Calc Glucose measurementOrdered B y: Bess Leigh on 09-12-2024 Glucose [Mass/Vol] 85 mg/dL 74-106 [facility] Hematocrit Auto (Bld) [Volum e fraction]Ordered By: Bess Leigh on 09-12-2024 Hematocrit (Bld) [Volume fraction] 44.1 % 40-54 [facility] Hemoglobin measurementOrdere d By: Bess Leigh on 09-12-2024 Hemoglobin (Bld) [Mass/Vol] 14.6 g/dL 13.0-16.5 [facility] Immature granulocytes/100 WB C Auto (Bld)Ordered By: Bess Leigh on 09-12-2024 Immature granulocytes/100 WBC (Bld) 0.400 % 0.0-0.9 [facility] Comment on above: IG% - Immature Granu locytes (promyelocytes, myelocytes and metamyelocytes) > 1% indicates that a LEFT SHIFT is Present. Laboratory - Chemistry and C hemistry - challengeOrdered By: Bess Leigh on 09-12-2024 AST [Catalytic activity/Vol] 21 U/L 15-37 [facility] Lymphocytes Auto (Unsp spec) [#/Vol]Ordered By: Bess Leigh on 09-12-2024 Lymphocytes (Bld) [#/Vol] 3.28 10*3/uL 0.83-4.51 [facility] Lymphocytes/100 WBC Auto (Un sp spec)Ordered By: Bess Leigh on 09-12-2024 Lymphocytes/100 WBC (Bld) 31.7 % 19-41 [facility] MCV (mean corpuscular volume ) determinationOrdered By: Bess Leigh on 09-12-2024 MCV (RBC) [Entitic vol] 84.6 fL 80-94 [facility] Mean corpuscular hemoglobin (MCH) determinationOrdered By: Bess Leigh on 09-12-2024 MCH (RBC) [Entitic mass] 28.0 pg 27.0-32.0 [facility] Mean corpuscular hemoglobin concentration (MCHC) determinationOrdered By: Bess Leigh on 09-12-2024 MCHC (RBC) [Mass/Vol] 33.1 g/dL 32-36 [facility] Mean platelet volume determi nationOrdered By: Bess Leigh on 09-12-2024 Platelet mean volume (Bld) [Entitic vol] 9.9 fL 6.2-12.0 [facility] Monocyte percentageOrdered B y: Bess Leigh on 09-12-2024 Monocytes/100 WBC (Bld) 7.8 % 0-10 [facility] Neutrophil percentageOrdered By: Bess Leigh on 09-12-2024 Neutrophils/100 WBC (Bld) 56.4 % 47-70 [facility] Nucleated red blood cell per centageOrdered By: Bess Leigh on 09-12-2024 Nucleated RBC/100 WBC (Bld) [Ratio] 0 % 0-5 [facility] Platelet countOrdered By: Tushar Leigh on 09-12-2024 Platelets (Bld) [#/Vol] 233 10*3/uL 150-450 [facility] Potassium measurementOrdered By: Bess Leigh on 09-12-2024 Potassium [Moles/Vol] 3.8 mmol/L 3.5-5.1 [facility] RBC Auto (Bld) [#/Vol]Ordere d By: Bess Leigh on 09-12-2024 RBC (Bld) [#/Vol] 5.21 10*6/uL 4.6-6.2 [facility] Serum anion gap measurementO rdered By: Bess Leigh on 09-12-2024 Anion gap [Moles/Vol] 5 mmol/L 5-15 [facility] Serum globulin measurementOr dered By: Bess Leigh on 09-12-2024 Globulin (S) [Mass/Vol] 3.0 g/dL 2.2-4.2 [facility] Serum or plasma alanine morgan otransferase (ALT) measurementOrdered By: Bess Leigh on 09-12-2024 ALT [Catalytic activity/Vol] 31 U/L 16-61 [facility] Serum or plasma albumin hanh urement (mass/volume)Ordered By: Bess Leigh on 09-12-2024 Albumin [Mass/Vol] 4.2 g/dL 3.2-5.0 [facility] Serum or plasma alkaline asia sphatase measurementOrdered By: Bess Leigh on 09-12-2024 ALP [Catalytic activity/Vol] 64 U/L 45-117 [facility] Serum or plasma calcium hanh urement (mass/volume)Ordered By: Bess Leigh on 09-12-2024 Calcium [Mass/Vol] 9.4 mg/dL 8.5-10.1 [facility] Serum or plasma creatinine m easurement (mass/volume)Ordered By: Bess Leigh on 09-12-2024 Creatinine [Mass/Vol] 1.00 mg/dL 0.70-1.30 [facility] Comment on above: The validity of the calculated GFR & GFRAA in patients over 70 years has not been determined. Clinical correlation is essential. Serum or plasma urea nitroge n measurement (mass/volume)Ordered By: Bess Leigh on 09-12-2024 Urea nitrogen [Mass/Vol] 13 mg/dL 7-18 [facility] Sodium levelOrdered By: Nicol Leigh on 09-12-2024 Sodium [Moles/Vol] 141 mmol/L 136-145 [facility] Total proteinOrdered By: Elenita Leigh on 09-12-2024 Protein [Mass/Vol] 7.2 g/dL 6.4-8.2 [facility] White blood cell (WBC) count Ordered By: Bess Leigh on 09-12-2024 WBC (Bld) [#/Vol] 10.4 10*3/uL 4.4-11.0 [facility] 08-22-2024 CNPN Telephone ([employer]) EDGARDELAINA ([id number]) 1985 M [place] Date Time Provider Department 08/22/24 TC ALY During your visit today, we recorded the following information about you: Shawn Hawkins 08/22/2024 5:15 PM Signed Faxed referral for Gastroenterology and Demographic sheet. Pt called stating he was having a hard time getting a hold of Dr. Hampton's office. Called office and talk to scheduling she asked us to refax order. Faxed to [phone] Allergies As of Date: 08/22/2024 (No Known Allergies) Date Reviewed: 07/24/2024 Reviewed by: Joyce Anton APRN.MANAGER OF EMPLOYEE RELATIONS - Fully Assessed Reason for Visit: faxed referral [Other] Cmt: Faxed referral to Dr. Hampton Prescriptions as of 08/22/2024 - pdriqzupj-lflqfuzrj-ue ycerin-white petrolatum (PREPARATION H) 0.25-1 % crea by RECTAL route three times a day as needed. Problem List As Of Date 08/22/2024 Noted Resolved Social phobia [F40.10] 10/18/2014 Anxiety [F41.9] 10/18/2014 Nausea AND vomiting [R11.2] 10/18/2014 Residual hemorrhoidal skin tags [K64.4] 09/17/2022 Encounter Status:Closed by SHAWN HAWKINS on 08/22/24 [facility] 07-26-2024 CNPN Telephone ([employer]) ELAINA ADAN ([id number]) 1985 M [place] Date Time Provider Department 07/26/24 JOYCE ANTON During your visit today, we recorded the following information about you: Concepción Singleton MA 07/26/2024 9:58 AM Signed ----- Message from Joyce Anton APRN.MANAGER OF EMPLOYEE RELATIONS sent at 07/24/2024 11:53 AM EST ----- Lipid panel is normal- did he not get the rest of the labs done? Concepción Singleton MA 07/26/2024 9:59 AM Signed Patient's girlfriend on HIPAA informed of results and states patient will go next week to complete the rest of the labs. Concepción Singleton MA Allergies As of Date: 07/26/2024 (No Known Allergies) Date Reviewed: 07/24/2024 Reviewed by: Joyce Anton APRN.MANAGER OF EMPLOYEE RELATIONS - Fully Assessed Reason for Visit: Results [95] Prescriptions as of 07/26/2024 - sxloksyfs-gkjqyhqkd-ab ycerin-white petrolatum (PREPARATION H) 0.25-1 % crea by RECTAL route three times a day as needed. Problem List As Of Date 07/26/2024 Noted Resolved Social phobia [F40.10] 10/18/2014 Anxiety [F41.9] 10/18/2014 Nausea AND vomiting [R11.2] 10/18/2014 Residual hemorrhoidal skin tags [K64.4] 09/17/2022 Encounter Status:Closed by CONCEPCIÓN SINGLETON on 07/26/24 [facility] 07-24-2024 CNOV Office Visit (AGFAMPLE) ELAINA ADAN ([id number]) 1985 M [place] Date Time Provider Department 07/24/24 10:20 AM JOYCE ANTON During your visit today, we recorded the following information about you: Temperature Pulse Respiration Blood pressure 97.5 degrees 75/minute 16/minute 116/70 Weight Height 83.5 kg 1.829 m Joyce Anton, TRISTAN.MANAGER OF EMPLOYEE RELATIONS 07/24/2024 12:12 PM Signed CHIEF COMPLAINT: Elaina Adan is a 39 year old male who presents today for a GI referral. He reports he is still having rectal bleeding. He was referred to Dr. Hampton last year but he wasn't taking new patient's at the time. He states the bleeding can sometimes be bright red and is sometimes dark red. Not necessarily only with BM or wiping. He does have generalized abdominal pain. No N/V, diarrhea, constipation. He usually has a BM once a day, last BM was yesterday. No fevers or weight loss. He does note feeling tired a lot. I reviewed past medical, surgical, social, and family histories today and updated chart. Allergies, chronic medications, and supplements were also reviewed. The history is provided by the patient. PAST MEDICAL HISTORY Diagnosis Date Abdominal pain Alopecia Social phobia PAST SURGICAL HISTORY Procedure Laterality Date PAST SURGICAL HISTORY OF 05/2014 wisdom teeth extraction PAST SURGICAL HISTORY OF at age 13 adenoid Social History Tobacco Use Smoking status: Former Smokeless tobacco: Never Tobacco comments: quit in 2011 Vaping Use Vaping status: Never Used Substance Use Topics Alcohol use: Not Currently Comment: occ. Drug use: Yes Types: Marijuana ALLERGIES No Known Allergies Family History Problem Relation Age of Onset other (anxiety) Mother other (thyroid cancer) Mother other (depression) Sister Current Outpatient Medications Medication Sig Dispense Refill ykpuxsmqy-faaztlnkv-mp ycerin-white petrolatum (PREPARATION H) 0.25-1 % crea by RECTAL route three times a day as needed. 26 g 1 No current facility-administered medications for this visit. Review of Systems Constitutional: Positive for fatigue. Negative for appetite change, chills, diaphoresis, fever and unexpected weight change. Respiratory: Negative. Cardiovascular: Negative. Gastrointestinal: Positive for abdominal pain, anal bleeding, blood in stool and rectal pain. Negative for abdominal distention, constipation, diarrhea, nausea and vomiting. Genitourinary: Negative. Musculoskeletal: Negative. Neurological: Negative. BP 116/70 Pulse 75 Temp 97.5 Resp 16 Ht 6' 0 (1.83m) Wt 184 lb (83.5kg) SpO2 97% BMI 24.95 kg/(m2). Physical Exam Vitals and nursing note reviewed. Constitutional: Appearance: Normal appearance. HENT: Mouth/Throat: Mouth: Mucous membranes are moist. Eyes: Pupils: Pupils are equal, round, and reactive to light. Neck: Thyroid: No thyromegaly. Cardiovascular: Rate and Rhythm: Normal rate and regular rhythm. Heart sounds: Normal heart sounds, S1 normal and S2 normal. Pulmonary: Effort: Pulmonary effort is normal. Breath sounds: Normal breath sounds and air entry. Abdominal: General: Bowel sounds are normal. There is no distension. Palpations: Abdomen is soft. There is no hepatomegaly or splenomegaly. Tenderness: There is abdominal tenderness in the right lower quadrant and left lower quadrant. There is no guarding. Negative signs include Butler's sign and McBurney's sign. Musculoskeletal: Cervical back: Neck supple. Skin: General: Skin is warm and dry. Neurological: Mental Status: He is alert and oriented to person, place, and time. Psychiatric: Mood and Affect: Mood normal. Behavior: Behavior is cooperative. ASSESSMENT/PLAN: 1. Rectal bleeding - ICD9: 569.3, ICD10: K62.5 (primary diagnosis) - CONSULT TO GASTROENTEROLOGY - COMPLETE BLOOD COUNT AND DIFFERENTIAL 2. Generalized abdominal pain - ICD9: 789.07, ICD10: R10.84 Etiology unclear Differential Diagnosis includes IBS, Constipation, IBD, and Diverticulitis - Increase fiber in diet - Treatment for constipation discussed - Referral to Gastroenterology - COMPREHENSIVE METABOLIC PANEL - THYROID STIMULATING HORMONE 3. Hemorrhoids, unspecified hemorrhoid type - ICD9: 455.6, ICD10: K64.9 - CONSULT TO GASTROENTEROLOGY - COMPLETE BLOOD COUNT AND DIFFERENTIAL - PHENYLEPHRINE 0.25 %-PRAMOXINE 1 %-GLYCERIN-WH.PETROLAT UM RECTAL CREAM 4. Screening for lipid disorders - ICD9: V77.91, ICD10: Z13.220 - LIPID PANEL BASIC New medication(s) prescribed today: Yes: See above. Discussed new medication dosage, usage, goals of therapy, and side effects. Patient has been apprised of any potential drug interactions to be aware of. Patient expresses understanding. Counseling completed in adopting health behaviors such as avoiding excessive alcohol use, avoid tobacco use, (more content not included)... Normal [facility] Lipid 1996 panelon 4 Cholesterol [Mass/Vol] 176 mg/dL NINF - 200 mg/dL [facility] Comment on above: <200 mg/dL, Desirabl e 200-239 mg/dL, Borderline high >239 mg/dL, High Cholesterol in HDL [Mass/Vol] 48 mg/dL 39 - PINF mg/dL [facility] Comment on above: 40-59 mg/dL, Accepta ble >59 mg/dL, High: Negative risk factor for coronary heart disease <40 mg/dL, Low: Positive risk factor for coronary heart disease Cholesterol in LDL [Mass/Vol] 99 mg/dL NINF - 100 mg/dL [facility] Comment on above: <100 mg/dL, Optimal 100-129 mg/dL, Near optimal/above optimal 130-159 mg/dL, Borderline high 160-189 mg/dL, High >189 mg/dL, Very high Secondary prevention optimal LDL Cholesterol levels are recommended to be < 70 mg/dL Cholesterol in LDL/Cholesterol in HDL [Mass ratio] 2.06 {ratio} NINF - 2.54 [facility] Comment on above: Reference: 1. National Cholesterol Education Program ATP III Guideline At-A-Glance Quick Desk Reference: National Heart, Lung, and Blood [place]. National Institutes of Health. 2001: NIH Publication No. 01-3305. 2. An International Atherosclerosis Society position paper: global recommendations for the management of dyslipidemia: executive summary, Atherosclerosis. 2014: 232(2):410-413. Cholesterol in VLDL [Mass/Vol] 29 mg/dL NINF - 30 mg/dL [facility] Cholesterol non HDL [Mass/Vol] 128 mg/dL NINF - 130 mg/dL [facility] Comment on above: <130 mg/dL, Optimal 130-159 mg/dL, Near optimal/above optimal 160-189 mg/dL, Borderline high 190-219 mg/dL, High >219 mg/dL, Very high Secondary prevention optimal non HDL Cholesterol levels are recommended to be <100 mg/dL Cholesterol.total/Choles terol in HDL [Mass ratio] 3.67 {ratio} NINF - 5.10 [facility] Fasting Time 12 hrs [facility] Triglyceride [Mass/Vol] 143 mg/dL NINF - 150 mg/dL [facility] Comment on above: <150 mg/dL, Normal 150-199 mg/dL, Borderline high 200-499 mg/dL, High >499 mg/dL, Very high [facility] Cholesterol [Mass/Vol] 176 mg/dL Normal <200 [facility] Comment on above: Order Comment: Elizabeth hernandez Type: BLOOD SPECIMEN [facility] Address: [address] [place] [address] Result Comment: <200 mg/dL, Desirable 200-239 mg/dL, Borderline high >239 mg/dL, High Performed By: #### 2 4331-1 #### [facility] CLIA [id number] [address] [place] [address] [facility] Cholesterol in HDL [Mass/Vol] 48 mg/dL Normal >39 [facility] Comment on above: Order Comment: Elizabeth hernandez Type: BLOOD SPECIMEN Ordering Facility: [facility] Address: [address] [place] [address] Result Comment: 40-5 9 mg/dL, Acceptable >59 mg/dL, High: Negative risk factor for coronary heart disease <40 mg/dL, Low: Positive risk factor for coronary heart disease Performed By: #### 2 4331-1 #### [facility] CLIA [id number] [address] [place] [address] [facility] Cholesterol in LDL [Mass/Vol] 99 mg/dL Normal <100 [facility] Comment on above: Order Comment: Elizabeth hernandez Type: BLOOD SPECIMEN [facility]: [facility] Address: [address] [place] [address] Result Comment: <100 mg/dL, Optimal 100-129 mg/dL, Near optimal/above optimal 130-159 mg/dL, Borderline high 160-189 mg/dL, High >189 mg/dL, Very high Secondary prevention optimal LDL Cholesterol levels are recommended to be < 70 mg/dL Performed By: #### 2 4331-1 #### [facility] CLIA [id number] [address] [place] [address] [facility] Cholesterol in LDL/Cholesterol in HDL [Mass ratio] 2.06 {ratio} Normal <2.54 [facility] Comment on above: Order Comment: Elizabeth hernandez Type: BLOOD SPECIMEN [facility]: [facility] Address: [address] [place] [address] Result Comment: Refe rence: 1. National Cholesterol Education Program ATP III Guideline At-A-Glance Quick Desk Reference: National Heart, Lung, and Blood [place]. National Institutes of Health. 2001: NIH Publication No. 01-3305. 2. An International Atherosclerosis Society position paper: global recommendations for the management of dyslipidemia: executive summary, Atherosclerosis. 2014: 232(2):410-413. Performed By: #### 2 4331-1 #### [facility] CLIA [id number] [address] Cholesterol in VLDL [Mass/Vol] 29 mg/dL Normal <30 [facility] Comment on above: Order Comment: Elizabeth hernandez Type: BLOOD SPECIMEN [facility] Address: [address] [place] [address] Performed By: #### 2 4331-1 #### [facility] CLIA [id number] [address] [place] [address] [place] Cholesterol non HDL [Mass/Vol] 128 mg/dL Normal <130 [facility] Comment on above: Order Comment: Elizabeth mary Type: BLOOD SPECIMEN [facility] Address: [address] [place] [address] Result Comment: <130 mg/dL, Optimal 130-159 mg/dL, Near optimal/above optimal 160-189 mg/dL, Borderline high 190-219 mg/dL, High >219 mg/dL, Very high Secondary prevention optimal non HDL Cholesterol levels are recommended to be <100 mg/dL Performed By: #### 2 4331-1 #### [facility] CLIA [id number] [address] [place] [address] [facility] [place] Cholesterol.total/Choles terol in HDL [Mass ratio] 3.67 {ratio} Normal <5.10 [facility] Comment on above: Order Comment: Speci men Type: BLOOD SPECIMEN [facility] Address: [address] [place] [address] Performed By: #### 2 4331-1 #### [facility] CLIA [id number] [address] [place] [address] [facility] FASTING TIME 12 hrs Normal [facility] Comment on above: Order Comment: Speci men Type: BLOOD SPECIMEN [facility] Address: [address] [place] [address] Performed By: #### 2 4331-1 #### [facility] CLIA [id number] [address] [place] [address] [place] Triglyceride [Mass/Vol] 143 mg/dL Normal <150 [facility] Comment on above: Order Comment: Speci men Type: BLOOD SPECIMEN [facility]ing [facility]: [facility] Address: [address] [place] [address] Result Comment: <150 mg/dL, Normal 150-199 mg/dL, Borderline high 200-499 mg/dL, High >499 mg/dL, Very high Performed By: #### 2 4331-1 #### [facility] CLIA [id number] [address] [place] [address] [place] CNCOon 07-04-2024 CNCO Letter Text Normal [facility] CNPEmerita 07-04-2024 KEYN Telephone (MARYA) ELAINA ADAN ([id number]) 1985 M [facility] Date Time Provider Department 07/04/24 TC ALY During your visit today, we recorded the following information about you: Nafisa Alvarez 07/04/2024 3:52 PM Signed No Show Documentation Elaina Adan no showed for an appointment on 07/04/2024 with Tc Aly APRN.CNP at 2:40pm. He was scheduled for stomach issues. I called and was unable to reach the patient regarding his missed appointment. Resources discussed/offered to patient: na No show determined to be fault of patient: Yes This is the patients first no show in the last 12 months. Patient was rescheduled for na. Letter mailed : Yes Is this the Third or Fourth No Show? No Nafisa Alvarez July 04, 2024 3:52 PM Allergies As of Date: 07/04/2024 (No Known Allergies) Date Reviewed: 04/28/2023 Reviewed by: Joyce Anton APRN.CNP - Fully Assessed Reason for Visit: Missed Appointment [1304] Cmt: 1st no show in 365 days (1st letter sent) Problem List As Of Date 07/04/2024 Noted Resolved Social phobia [F40.10] 10/18/2014 Anxiety [F41.9] 10/18/2014 Nausea AND vomiting [R11.2] 10/18/2014 Residual hemorrhoidal skin tags [K64.4] 09/17/2022 Encounter Status:Closed by NAFISA ALVAREZ [facility] 07/04/[facility] (UROLMD ) EDGARDELAINA ([id number]) 1985 M [facility] Date Time Provider Department 10/18/22 10:00 AM SHLOMO HAAS During your visit today, we recorded the following information about you: Pulse Respiration Blood pressure Weight 86/minute 18/minute 101/69 82.1 kg Height 1.829 m Shlomo Haas MD 10/18/2022 11:01 AM Signed 10/18/2022 UNIVERSAL PROTOCOL / SAFETY CHECKLIST Procedure to be Performed: vasectomy Sign In: A Moment of CARE was completed. Personnel directly involved with the procedure wore the appropriate PPE (Personal Protective Equipment). Patient/Surrogate Stated/Verified: PATIENT VERIFIED(optional for EMERGENT procedures): Patient name, Date of , Relevant allergies, and The intended procedure Time Out Communication: Intended patient and procedure match the source documents. Consent documented and matches the intended procedure. Sign Out: SIGN OUT (optional for EMERGENT procedures): All specimen containers correctly labeled. Shlomo Haas MD HPI: 37 year old male reports for vasectomy. He again confirms he desires permanent sterilization and has no desire to father children in the future. Operation: Vasectomy Anatomic Site: Vas Deferens Approach: Percutaneous Device: None Qualifier: None PMHx/PSHx: see above, otherwise unchanged Rx: No scheduled NSAIDs or blood thinner for past 5 days. ROS: No new or inguinal complaints Labs: None Imaging: None PE: General: Well masculinized, well nourished male Psych: euthymic, NAD Neuro: AANDOx3 exam: see below. Procedure: Vasectomy Patient?s identity was confirmed, written informed consent was obtained, and the time out performed before the procedure was initiated The patient was placed in a supine position and the genitalia were prepped and draped in a sterile manner. Examination revealed no scrotal lesions, descended testicles bilaterally without masses and readily palpable vasa deferens. The right scrotal skin and cord structures was anesthetized with 5 cc of 2% lidocaine without epinephrine. A No-scapel technique was used to isolated and remove a small portion of the vas deferens. The vasal ends were secured with clips and hemostasis was ensured. The skin edges were closed with an absorbable suture. The procedure was repeated on the patient?s left side. The patient tolerated the procedure well. Postoperative care, limitations, and expectations were reviewed with the patient. He was again instructed to use an alternate form of control until he is notified that his postprocedure semen analysis reveals no sperm. Imp: S/p vasectomy P: 1) Semen Analysis in 3 months 2) post-procedure instructions given to pt with verbalization of understanding. MD Colton Ferrari Ma 10/18/2022 10:48 AM Signed HOME GOING/DISCHARGE INSTRUCTIONS FOR VASECTOMY PATIENTS Please call the following numbers with any questions or concerns: [place] Offices: #[phone], and also #[phone] [facility] patients: [phone] M-F 8am-5pm, after hours [phone] ACTIVITIES Avoid strenuous physical exercise and heavy lifting for 10 days (as in bearing down, squatting or heavy weight lifting) NO bouncing, bumping or jarring NO contact sports, no exercising, no golf, no vacations/trips NO swimming, bathing or engaging in sexual activity NO going out to dinner or shopping Avoid lifting children or pets for 7-[address] them on your lap Rest with your legs elevated in a reclining chair Avoid sexual stimulation for ten days. After this time, you may return to sexual activity. A METHOD OF CONTROL should be used until your semen analysis showed negative results for sperm x 2. It is normal to notice blood or a brown color in the semen during the first few weeks after the procedure. You may go back to work in 2-3 days PRECAUTIONS Follow the usual precautions against until the results of the semen analysis are known. If sperm are detected, it may be necessary to continue precautions until another sample is submitted at a later date. You will need to come back for Follow up appointment in the time advised by your Provider with a semen specimen in the cup provided. Make sure to continue precautions until negative specimens by provider. DIET Resume your previous diet MEDICATIONS Use Acetaminophen for mild pain or discomfort Avoid Aspirin or Aspirin-containing products for 5 days WOUND CARE Apply ice packs to the scrotal area over the underwear every 8 hours for the first 1-2 days for not more than 30 minutes at a time. Use a jock strap (scrotal support) for 10 days. A small amount of oozing of blood, tenderness, and mild swelling are expected and should subside in a few days. If a small amount of bleeding occu (more content not included)... Normal [facility] SURGICAL PATHOLOGYon 023 CASE REPORT Normal [facility] Comment on above: Order Comment: Speci men Type: TISSUE SPECIMEN [facility]ing [facility] Address: [address] [place] [phone] Result Comment: Surg ica Pathology Report Case: [id number] Authorizing Provider: Shlomo Haas MD Collected: 10/18/2022 10:55 AM Ordering Location: Urology Received: 10/18/2022 03:33 PM Pathologist: Rody Arevalo MD Specimens: A) - VAS DEFERENS LEFT, 1 B) - VAS DEFERENS RIGHT, 1 Performed By: #### S #### [facility] CLIA [id number] [address] [place] [address] CLINICAL HISTORY ENCOUNTER FOR VASECTOMY Normal [facility] Comment on above: Order Comment: Speci men Type: TISSUE SPECIMEN [facility] Address: [address] [place] [address] Performed By: #### S #### [facility] CLIA [id number] [address] [place] [address] FINAL DIAGNOSIS Normal [facility] Comment on above: Order Comment: Speci men Type: TISSUE SPECIMEN [facility] Address: [address] [place] [address] Result Comment: A. V as deferens, left, excision: - Complete cross-section of unremarkable vas deferens B. Vas deferens, right, excision: - Complete cross-section of unremarkable vas deferens. Performed By: #### S #### [facility] CLIA [id number] [address] [place] [address] FINAL PERFORMING LAB Normal [facility] Comment on above: Order Comment: Speci men Type: TISSUE SPECIMEN Ordering Facility: [facility] Address: [address] [place] [address] Result Comment: Diag nostic interpretation performed at [facility], [address] [place] [address] CLIA# [id number] Special Education Secretary: Anoop Sierra M.D. Performed By: #### S #### [facility] CLIA [id number] [address] [place], [place] [id number] [facility] GROSS DESCRIPTION Normal [facility] Comment on above: Order Comment: Speci men Type: TISSUE SPECIMEN [facility] Address: [facility] [place] [phone] Result Comment: A. V DEFERENS LEFT Received in formalin labelled vas deferens left is a oreilly, cylindrical, rubbery tissue segment measuring 1.1 cm in length x 0.3 cm in diameter. A pinpoint lumen is identified and both ends are inked. Totally submitted in one cassette. B. VAS DEFERENS RIGHT Received in formalin labelled vas deferens right is a oreilly, cylindrical, rubbery tissue segment measuring 1.1 cm in length x 0.3 cm in diameter. A pinpoint lumen is identified and both ends are inked. Totally submitted in one cassette. Gross examination performed at [facility], [address] [place], [place] [id number] [facility] October 19, 2022 8:39 AM Performed By: #### S #### [facility] CLIA [id number] [address] [place] [address] CNPEmerita 08-24-2022 CNPN Telephone (UROLWS) ELAINA ADAN ([id number]) 1985 [facility] Date Time Provider Department 08/24/22 ELAINA STRICKLAND UROLWS During your visit today, we recorded the following information about you: Estefany Eric RN 08/24/2022 12:05 PM Signed Pt called wanting to know status of pre authorization for insurance for pending vasectomy, had consultation in May. Please update patient and advise.ELIS Hopson LPN 08/24/2022 1:48 PM Signed Called patient. Verified name and date of . Patient reports that he wants to get vasectomy scheduled but has not called to schedule. Informed procedure will not be scheduled unless he schedules it and they can let him know of financials. Provided appointment to schedule and transferred. 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] Problem List As Of Date 08/24/2022 Noted Resolved Social phobia [F40.10] 10/18/2014 Anxiety [F41.9] 10/18/2014 Nausea AND vomiting [R11.2] 10/18/2014 Encounter Status:Closed by ESTEFANY ERIC on 08/24/22 [facility] CNOVon 06-15-2022 CNOV Office Visit (UROLWS ) ELAINA ADAN ([id number]) 1985 M [facility] Date Time Provider Department 06/15/22 1:20 PM ELAINA STRICKLAND During your visit today, we recorded the following information about you: Temperature Pulse Respiration Blood pressure 97.6 degrees 108/minute 16/minute 134/70 Weight Height 80.3 kg 1.829 m Elaina Strickland PA-C 06/15/2022 1:48 PM Signed Elaina Adan June 15, 2022 Referred by: CC: Desires permanent sterilization HPI: 36 year old male states he desire permanent surgical sterilization. Reports fathering 3 children and expressly states he does not desire to father children in the future. Genitourinary history: Hx undescended testis: No Hx stone disease: No Hx UTI/prostatitis/epidid imitis/STI: No Sexual frequency/libido: No Urinary sx: No Hematuria: No FAMILY HISTORY Problem Relation Age of Onset other (anxiety) Mother other (thyroid cancer) Mother other (depression) Sister PAST MEDICAL HISTORY Diagnosis Date Abdominal pain Alopecia Social phobia PAST SURGICAL HISTORY Procedure Laterality Date PAST SURGICAL HISTORY OF 05/2014 wisdom teeth extraction PAST SURGICAL HISTORY OF at age 13 adenoid No current outpatient medications on file. No current facility-administered medications for this visit. Allergies: Patient has no known allergies. Social History Tobacco Use Smoking status: Former Smokeless tobacco: Never Tobacco comments: quit in 2011 Vaping Use Vaping Use: Never used Substance Use Topics Alcohol use: No Drug use: No Occupation/exposures: None ROS: ENMT: No changes in hearing or vision, no nose bleeds or other nasal problems SKIN: Negative for lesions, rash, and itching. ENDOCRINE: Negative for cold or heat intolerance, polyuria, polydipsia and goiter. RESPIRATORY: Negative for cough, wheezing and shortness of breath CARDIOVASCULAR: Negative for chest pain, leg swelling and palpitations GI: Negative for abdominal discomfort, blood in stools or black stools : Negative for dysuria, frequency and incontinence MUSCULOSKELETAL: Negative for joint pain or swelling, back pain, and muscle pain. PSYCH: Negative for sleep disturbance, mood disorder and recent psychosocial stressors. NEURO: Negative All other systems reviewed and are negative. Physical Exam: BP 134/70 (BP Site: Right Arm, BP Position: Sitting, BP Cuff Size: Large Adult) Pulse 108 Temp 36.4 ?C (97.6 ?F) (Temporal) Resp 16 Ht 182.9 cm (6') Wt 80.3 kg (177 lb) SpO2 98% BMI 24.01 kg/m? General: Well appearing, alert, in no acute distress, well-hydrated, well nourished. ENMT: Negative Neuro: Awake, alert and oriented x 3 Inguinal: No lympnadenopathy and No hernia Gastrointestinal:Non-t bakari, Soft : Testes: descended, without tenderness, and no masses bilaterally. L Normal ccs - R Normal ccs Phallus; normal, circumcised - , no lesions, Meatus: Orthotopic, patent, no discharge and Scrotum: no lesions, normal rugae Varicocele: No Epididymides: L Normal R Normal Vas deferens: Bilaterally Normal Musculoskeletal: normal, supple and thyroid normal size, non-tender, without nodularity Assessment: 36 year old male desires vasectomy. The patient attests that he watched and understood the AUA Vasectomy video and read and understood the No-Scalpel Vasectomy pamphlet. He was instructed to stop all NSAIDs, aspirin and other blood thinners 5 days prior to the vasectomy. He was instructed to shave entire front of scrotum to the base of the penis the morning of the vasectomy. Postprocedure care, expectations, and limitations were discussed. He voiced understanding of these instructions and stated his questions were answered. Plan: 1) Proceed to vasectomy scheduling I personally counseled this patient about the following and he voiced understanding: a) Vasectomy is a permanent and irreversible form of sterilization b) 1:1,000 rate of recanalization which can results in the return of sperm into the ejaculate after vasectomy c) Patient must use alternative form of control until he is notified that his postprocedure semen analysis contained no sperm. Consultation requested by Self for an opinion regarding vasectomy and my final recommendations will be communicated back to the requesting physician by way of shared Medical record or letter via US mail. Visit duration 30 minutes with approximately 50% of time in counseling ROBYN Dia, [place], JONY Strickland PA-C 06/15/2022 1:40 PM Signed Vasectomy Providers and Locations Allergies As of Date: 06/15/2022 (No Known Allergies) Date Reviewed: 06/15/2022 Reviewed by: Elaina Strickland PA-C - Fully Assessed Reason for Visit: New Patient [172] Vasectomy-1 [118] Primary Visit Diagnosis:Vasectomy evaluation [Z30.09] Order(s):VASECTOMY [30419LED] O (more content not included)... [facility] ALP [Catalytic activity/Vol] 63 U/L Normal 45-117 [facility] Comment on above: Performed By: #### P 14 #### [address] [address] Protein [Mass/Vol] 7.1 g/dL Normal 6.4-8.2 [facility] Comment on above: Performed By: #### P 14 #### [address] [address] Bilirubin [Mass/Vol] 0.5 mg/dL Normal 0.2-1.0 [facility] Comment on above: Performed By: #### P 14 #### [facility] [address] [place], [place] [address] Creatinine [Mass/Vol] 0.83 mg/dL Normal 0.67-1.17 [facility] Comment on above: Performed By: #### P 14 #### [facility] [address] [place], [place] [address] ALT [Catalytic activity/Vol] 52 U/L Normal 12-78 [facility] Comment on above: Performed By: #### P 14 #### [facility] [address] [place], [place] [address] AST [Catalytic activity/Vol] 23 U/L Normal 15-37 [facility] Comment on above: Performed By: #### P 14 #### [facility] [address] [place], [place] [address] Albumin [Mass/Vol] 4.4 g/dL Normal 3.4-5.0 [facility] Comment on above: Performed By: #### P 14 #### [facility] [address] [place], [place] [address] Anion gap [Moles/Vol] 7 mmol/L Low 8-16 [facility] Comment on above: Performed By: #### P 14 #### [facility] [address] [place], [place] [address] Calcium [Mass/Vol] 9.4 mg/dL Normal 8.5-10.1 [facility] Comment on above: Performed By: #### P 14 #### [facility] [address] [place], [place] [address] CO2 [Moles/Vol] 27 mmol/L Normal 21-32 [facility] Comment on above: Performed By: #### P 14 #### [facility] [address] [place], [place] [address] Glucose [Mass/Vol] 96 mg/dL Normal 70-99 [facility] Comment on above: Performed By: #### P 14 #### [facility] [address] [place], [place] [address] Urea nitrogen [Mass/Vol] 17 mg/dL Normal 7-18 [facility] Comment on above: Performed By: #### P 14 #### [facility] [address] [place], [place] [address] Chloride [Moles/Vol] 109 mmol/L High 98-107 [facility] Comment on above: Performed By: #### P 14 #### [facility] [address] [place], [place] [address] Potassium [Moles/Vol] 4.4 mmol/L Normal 3.5-5.1 [facility] Comment on above: Performed By: #### P 14 #### [facility] [address] [place], [place] [address] Sodium [Moles/Vol] 139 mmol/L Normal 136-145 [facility] Comment on above: Performed By: #### P 14 #### [facility] [address] [place], [place] [address] Hemoglobin A1Con 08-06-2019 HbA1c (Bld) [Mass fraction] 5.3 % Normal 4.5-6.2 [facility] Comment on above: Performed By: #### L A1C #### [facility] [address] [place] [address] HbA1c (Bld) [Mass fraction] 105 mg/dl Normal [facility] Comment on above: Performed By: #### L A1C #### [place] [address] Hemogramon 08-06-2019 Erythrocyte distribution width (RBC) [Ratio] 13.0 % Normal 11.5-15.9 [facility] Comment on above: Performed By: #### L CBC #### [facility] [address] [place], [place] [address] Hematocrit (Bld) [Volume fraction] 45.6 % Normal 42.0-52.0 [facility] Comment on above: Performed By: #### L CBC #### [facility] [address] [place], [place] [address] Hemoglobin (Bld) [Mass/Vol] 15.2 g/dL Normal 14.0-18.0 [facility] Comment on above: Performed By: #### L CBC #### [place] [address] MCH (RBC) [Entitic mass] 28.6 pg Normal 27.0-31.0 [facility] Comment on above: Performed By: #### L CBC #### [facility] [address] [place] [address] MCHC (RBC) [Mass/Vol] 33.3 % Normal 32.0-36.0 [facility] Comment on above: Performed By: #### L CBC #### [facility] [address] [place] [address] MCV (RBC) [Entitic vol] 85.9 fL Normal 80.0-94.0 A [facility] Comment on above: Performed By: #### L CBC #### [place] [address] Platelet mean volume (Bld) [Entitic vol] 10.3 fL Normal 7.1-10.5 [facility] Comment on above: Performed By: #### L CBC #### [place] [address] Platelets (Bld) [#/Vol] 213 thou/cmm Normal 150-400 [facility] Comment on above: Performed By: #### L CBC #### [place] [address] RBC (Bld) [#/Vol] 5.31 mil/cmm Normal 4.60-6.20 [facility] Comment on above: Performed By: #### L CBC #### [place] [id number] WBC (Bld) [#/Vol] 9.4 thou/cmm Normal 4.8-10.5 [facility] Comment on above: Performed By: #### L CBC #### [facility] [address] [place] [id number] MDRD GFRon 08-06-2019 GFR/1.73 sq M predicted among non-blacks MDRD (S/P/Bld) [Vol rate/Area] mL/min/{1.73_m2} Normal >60mL/min/1. 73m2 [facility] Comment on above: Result Comment: If t he patient is , multiply the result by 1.210. Performed By: #### G FR #### [facility] [address] [place] [id number] PSA Screenon 08-06-2019 PSA Screen 1.1 ng/mL Normal 0.0-3.9 [facility] Comment on above: Performed By: #### L PSAS #### [facility] [address] [place], [place] [address] Vital Signs Date Time Vital Sign Value Performing Clinician Facility 09-12-2024 10:38-0500 Body height 182.88 cm No Primary Care Physician [facility] 09-12-2024 10:38-0500 Body mass index (BMI) [Ratio] 25.2 kg/m2 No Primary Care Physician [facility] 09-12-2024 10:38-0500 Body weight 84.36 kg No Primary Care Physician [facility] 09-12-2024 10:38-0500 Diastolic blood pressure 83 mm[Hg] No Primary Care Physician [facility] 09-12-2024 10:38-0500 Heart rate 98 /min No Primary Care Physician [facility] 09-12-2024 10:38-0500 Respiratory rate 18 /min No Primary Care Physician [facility] 09-12-2024 10:38-0500 SaO2% (BldA) [Mass fraction] 98 % No Primary Care Physician [facility] 09-12-2024 10:38-0500 Systolic blood pressure 128 mm[Hg] No Primary Care Physician [facility] 07-24-2024 10:24-0500 Body height 182.9 cm Joyce Anton APRN.MANAGER OF EMPLOYEE RELATIONS Work Phone: [facility] 07-24-2024 10:24-0500 Body mass index (BMI) [Ratio] 24.95 kg/m2 Joyce Anton PSYCHOLOGIST MILITARY PERSONNEL.MANAGER OF EMPLOYEE RELATIONS Work Phone: [facility] 07-24-2024 10:24-0500 Body temperature 97.5 [degF] Joyce Atnon PSYCHOLOGIST MILITARY PERSONNEL.MANAGER OF EMPLOYEE RELATIONS Work Phone: [facility] 07-24-2024 10:24-0500 Body weight 83.46 kg Joyce Queden PSYCHOLOGIST MILITARY PERSONNEL.MANAGER OF EMPLOYEE RELATIONS Work Phone: [facility] 07-24-2024 10:24-0500 Diastolic blood pressure 70 mm[Hg] Joyce Queden PSYCHOLOGIST MILITARY PERSONNEL.MANAGER OF EMPLOYEE RELATIONS Work Phone: [facility] 07-24-2024 10:24-0500 Heart rate 75 /min Joyce Queden PSYCHOLOGIST MILITARY PERSONNEL.MANAGER OF EMPLOYEE RELATIONS Work Phone: [facility] 07-24-2024 10:24-0500 Respiratory rate 16 /min Joyce Queden PSYCHOLOGIST MILITARY PERSONNEL.MANAGER OF EMPLOYEE RELATIONS Work Phone: [facility] 07-24-2024 10:24-0500 SaO2% (BldA) [Mass fraction] 97 % Joyce Queden PSYCHOLOGIST MILITARY PERSONNEL.MANAGER OF EMPLOYEE RELATIONS Work Phone: [facility] 07-24-2024 10:24-0500 Systolic blood pressure 116 mm[Hg] Joyce Queden PSYCHOLOGIST MILITARY PERSONNEL.MANAGER OF EMPLOYEE RELATIONS Work Phone: [facility] 04-28-2023 10:27-0400 Body height 182.9 cm Joyce Queden PSYCHOLOGIST MILITARY PERSONNEL.MANAGER OF EMPLOYEE RELATIONS Work Phone: [facility] 04-28-2023 10:27-0400 Body temperature 97.59 [degF] Joyce Queden PSYCHOLOGIST MILITARY PERSONNEL.MANAGER OF EMPLOYEE RELATIONS Work Phone: [facility] 04-28-2023 10:27-0400 Body weight 81.65 kg Joyce Queden PSYCHOLOGIST MILITARY PERSONNEL.MANAGER OF EMPLOYEE RELATIONS Work Phone: [facility] 04-28-2023 10:27-0400 Diastolic blood pressure 60 mm[Hg] Joyce Queden PSYCHOLOGIST MILITARY PERSONNEL.MANAGER OF EMPLOYEE RELATIONS Work Phone: [facility] 04-28-2023 10:27-0400 Heart rate 60 /min Joyce Queden PSYCHOLOGIST MILITARY PERSONNEL.MANAGER OF EMPLOYEE RELATIONS Work Phone: [facility] 04-28-2023 10:27-0400 Respiratory rate 18 /min Joyce Queden PSYCHOLOGIST MILITARY PERSONNEL.MANAGER OF EMPLOYEE RELATIONS Work Phone: [facility] 04-28-2023 10:27-0400 SaO2% (BldA) [Mass fraction] 98 % Joyce Anton PSYCHOLOGIST MILITARY PERSONNEL.MANAGER OF EMPLOYEE RELATIONS Work Phone: [facility] 04-28-2023 10:27-0400 Systolic blood pressure 102 mm[Hg] Joyce Anton PSYCHOLOGIST MILITARY PERSONNEL.MANAGER OF EMPLOYEE RELATIONS Work Phone: [facility] 10-18-2022 10:14-0400 Body height 182.9 cm Shlomo Haas MD Work Phone: [facility] 10-18-2022 10:14-0400 Body weight 82.1 kg Shlomo Haas MD Work Phone: [facility] 10-18-2022 10:14-0400 Diastolic blood pressure 69 mm[Hg] Shlomo Haas MD Work Phone: [facility] 10-18-2022 10:14-0400 Heart rate 86 /min Shlomo Haas MD Work Phone: [facility] 10-18-2022 10:14-0400 Respiratory rate 18 /min Shlomo Haas MD Work Phone: [facility] 10-18-2022 10:14-0400 Systolic blood pressure 101 mm[Hg] Shlomo Haas MD Work Phone: [facility] 09-17-2022 10:05-0500 Body height 182.9 cm Tc Aly APRN.MANAGER OF EMPLOYEE RELATIONS Work Phone: [facility] 09-17-2022 10:05-0500 Body temperature 97.59 [degF] Tc Aly PSYCHOLOGIST MILITARY PERSONNEL.MANAGER OF EMPLOYEE RELATIONS Work Phone: [facility] 09-17-2022 10:05-0500 Body weight 81.65 kg Tc Aly PSYCHOLOGIST MILITARY PERSONNEL.MANAGER OF EMPLOYEE RELATIONS Work Phone: [facility] 09-17-2022 10:05-0500 Diastolic blood pressure 58 mm[Hg] Tc Aly PSYCHOLOGIST MILITARY PERSONNEL.MANAGER OF EMPLOYEE RELATIONS Work Phone: [facility] 09-17-2022 10:05-0500 Heart rate 78 /min Tc Aly APRN.CNP Work Phone: [facility] 09-17-2022 10:05-0500 SaO2% (BldA) [Mass fraction] 98 % Tc Aly APRN.CNP Work Phone: [facility] 09-17-2022 10:05-0500 Systolic blood pressure 104 mm[Hg] Tc Aly APRN.MANAGER OF EMPLOYEE RELATIONS Work Phone: [facility] Encounters Encounter Date Encounter Type Care Provider Facility Start: 12-13-2024 End: 12-13-2024 ambulatory Bess Leigh Facility:[facility] Start: 11-22-2024 ambulatory Jignesh Hampton Facility :[facility] Start: 11-22-2024 End: 11-22-2024 ambulatory Tc Aly NP Facility:[facility] Start: 10-03-2024 End: 10-03-2024 ambulatory No Primary Care Physician [facility] Work Phone: Start: 10-03-2024 End: 10-03-2024 Patient encounter procedure Bess LANDIS -[facility] Work Phone: Start: 10-03-2024 End: 10-03-2024 ambulatory Bess Leigh Facility:[facility] Start: 09-12-2024 End: 09-12-2024 Patient encounter procedure Bess LANDIS -[facility] Work Phone: Start: 09-12-2024 End: 09-12-2024 ambulatory No Primary Care Physician Facility:[facility] Start: 09-12-2024 End: 09-12-2024 ambulatory Bess Leigh Facility:[facility] Start: 08-22-2024 End: 08-22-2024 Telephone encounter Tc Aly APRN.CNP Work Phone: [facility] Comment on above: faxed referral (Faxe d referral to Dr. Hampton) Start: 07-26-2024 End: 07-26-2024 Telephone encounter Joyce Anton APRN.CNP Work Phone: [facility] Comment on above: Results Start: 07-24-2024 End: 07-24-2024 Patient encounter procedure Joyce Linda Alyse PSYCHOLOGIST MILITARY PERSONNEL.MANAGER OF EMPLOYEE RELATIONS Work Phone: [facility] Comment on above: Rectal bleeding (Rosalinda leonie Dx); Generalized abdominal pain; Hemorrhoids, unspecified hemorrhoid type; Screening for lipid disorders Start: 07-24-2024 End: 07-24-2024 ambulatory TC ALY Facility:[facility] Start: 07-04-2024 End: 07-04-2024 Telephone encounter Tc Aly APRN.MANAGER OF EMPLOYEE RELATIONS Work Phone: [facility] Comment on above: Missed Appointment ( 1st no show in 365 days (1st letter sent)) Start: 04-28-2023 End: 04-28-2023 Patient encounter procedure Joyce Linda Anton PSYCHOLOGIST MILITARY PERSONNEL.MANAGER OF EMPLOYEE RELATIONS Work Phone: [facility] Comment on above: Umbilical hernia wit hout obstruction and without gangrene (Primary Dx); Rectal bleeding; Hemorrhoids, unspecified hemorrhoid type; Lower abdominal pain Start: 12-22-2022 Telephone encounter Tc Aly APRN.MANAGER OF EMPLOYEE RELATIONS Work Phone: [facility] Comment on above: Referral Request ( iend is requesting referral for Elaina) Start: 11-25-2022 End: 11-25-2022 ambulatory Genevieve Segovia PA-C Work Phone: [facility] Comment on above: Rectal bleeding (Rosalinda leonie Dx); Periumbilical abdominal pain Start: 11-25-2022 End: 11-25-2022 Telemedicine consultation with patient Genevieve Juliette BORGES Work Phone: [facility] Start: 10-18-2022 End: 10-18-2022 ambulatory SHLOMO HAAS Facility:[facility] Start: 10-18-2022 End: 10-18-2022 Patient encounter procedure Shlomo Haas MD Work Phone: Urology Comment on above: Encounter for steril ization (Primary Dx) Start: 09-29-2022 Telephone encounter Tc Aly APRN.CNP Work Phone: [facility] Comment on above: Results Start: 09-20-2022 Telephone encounter Leonie Altamirano MA [facility] Comment on above: Medication Problem Start: 09-17-2022 End: 09-17-2022 Patient encounter procedure Tc Aly APRN.CNP Work Phone: [facility] Comment on above: Rectal bleeding (Rosalinda leonie Dx); Rectal pain; Lower abdominal pain; Depression screening; Special screening examination for viral disease; Screening for HIV (human immunodeficiency virus); Screening for diabetes mellitus; Screening for prostate cancer; Screening for lipid disorders; Thyroid disorder screening; Residual hemorrhoidal skin tags Start: 08-24-2022 Telephone encounter Elaina rodriguez PA-C Work Phone: Urology Comment on above: [employer] [facility] [employer] Start: 06-15-2022 End: 06-16-2022 ambulatory ELAINA STRICKLAND Facility:[facility] Procedures Date Procedure Procedure Detail Performing Clinician Start: 10-03-2024 Ultrasonography of abdomen No Primary Care Physician Start: 07-24-2024 Lipid 1996 panel - S chris or Plasma Joyce Queden PSYCHOLOGIST MILITARY PERSONNEL.KEY Work Phone: Start: 09-28-2022 Lipid 1996 panel - S chris or Plasma Joyce Queden PSYCHOLOGIST MILITARY PERSONNEL.KEY Work Phone: Plan of Treatment Date Care Activity Detail Author Start: 07-24-2029 Lipid panel Lipid Screening [facility] Start: 09-29-2027 Lipid 1996 panel - Serum or Plasma Lipid Screening [facility] Start: 09-29-2027 Lipid panel Lipid Screening [facility] Start: 09-29-2027 LIPID SCREEN LIPID SCREEN [facility] Start: 07-24-2024 End: 10-23-2024 CBC W Auto Differential panel - Blood COMPLETE BLOOD COUNT AND DIFFERENTIAL Lab Routine Rectal bleeding Hemorrhoids, unspecified hemorrhoid type Expected: 07/24/2024, Expires: 10/23/2024 [facility] Work Phone: Comment on above: Expected: 07/24/2024 , Expires: 10/23/2024 Start: 07-24-2024 End: 10-23-2024 Comprehensive metabolic 2000 panel - Serum or Plasma COMPREHENSIVE METABOLIC PANEL Lab Routine Generalized abdominal pain Expected: 07/24/2024, Expires: 10/23/2024 [facility] Comment on above: Expected: 07/24/2024 , Expires: 10/23/2024 Start: 07-24-2024 End: 10-23-2024 Thyrotropin [Units/volume] in Serum or Plasma THYROID STIMULATING HORMONE Lab Routine Generalized abdominal pain Expected: 07/24/2024, Expires: 10/23/2024 [facility] Comment on above: Expected: 07/24/2024 , Expires: 10/23/2024 Start: 07-24-2024 End: 07-24-2024 Patient encounter procedure 07/24/2024 10:20 AM EST Office Visit [facility] [address], [place] [id number] Joyce Antno, PSYCHOLOGIST MILITARY PERSONNEL.[facility] [address] [place] [address] stomach isssues [facility] Comment on above: stomach isssues Start: 03-25-2024 Covid-19 Vaccine ( season) Covid-19 Vaccine ( season) [facility] Start: 03-25-2024 Influenza vaccination Influenza Vacc ine (#1) [facility] Start: 09-17-2023 COVID-19 VACCINE (#1) COVID-19 VACCI NE (#1) [facility] Comment on above: Postponed from 12/23 (Declined at this time) Start: 03-25-2023 Influenza vaccination [facility] Start: 01-18-2023 End: 10-19-2023 POST VASEC SCREEN POST VASEC SCREEN Andrology Routine Encounter for sterilization Expected: 01/18/2023, Expires: 10/19/2023 [facility] Work Phone: Comment on above: Expected: 01/18/2023 , Expires: 10/19/2023 Start: 09-17-2022 End: 11-17-2022 CBC panel - Blood by Automated count CBC Lab Routine Rectal bleeding Rectal pain Lower abdominal pain Expected: 09/17/2022, Expires: 11/17/2022 [facility] Work Phone: Comment on above: Expected: 09/17/2022 , Expires: 11/17/2022 Start: 09-17-2022 End: 11-17-2022 Comprehensive metabolic 2000 panel - Serum or Plasma COMP METABOLIC PANEL Lab Routine Rectal bleeding Rectal pain Lower abdominal pain Expected: 09/17/2022, Expires: 11/17/2022 [facility] Work Phone: Comment on above: Expected: 09/17/2022 , Expires: 11/17/2022 Start: 09-17-2022 End: 11-17-2022 Hemoglobin A1c in Blood HGB A1C Lab Routine Screening for diabetes mellitus Expected: 09/17/2022, Expires: 11/17/2022 [facility] Work Phone: Comment on above: Expected: 09/17/2022 , Expires: 11/17/2022 Start: 09-17-2022 End: 11-17-2022 Hepatitis C virus Ab [Presence] in Serum HEP C AB IA W/CONF SCRN Lab Routine Special screening examination for viral disease Expected: 09/17/2022, Expires: 11/17/2022 [facility] Work Phone: Comment on above: Expected: 09/17/2022 , Expires: 11/17/2022 Start: 09-17-2022 End: 11-17-2022 HIV 1+2 Ab [Presence] in Serum or Plasma by Immunoassay HIV 1 2 COMBO(AG/AB),WITH REFLEX TO DIFFERENTIATION Lab Routine Screening for HIV (human immunodeficiency virus) Expected: 09/17/2022, Expires: 11/17/2022 [facility] Work Phone: Comment on above: Expected: 09/17/2022 , Expires: 11/17/2022 Start: 09-17-2022 End: 11-17-2022 Lipid 1996 panel - Serum or Plasma LIPID PANEL BASIC Lab Routine Screening for lipid disorders Expected: 09/17/2022, Expires: 11/17/2022 [facility] Work Phone: Comment on above: Expected: 09/17/2022 , Expires: 11/17/2022 Start: 09-17-2022 End: 11-17-2022 PSA/PROSTSPECAG SCRN PSA/PROSTSPECAG SCRN Lab Routine Screening for prostate cancer Expected: 09/17/2022, Expires: 11/17/2022 [facility] Work Phone: Comment on above: Expected: 09/17/2022 , Expires: 11/17/2022 Start: 09-17-2022 End: 11-17-2022 Thyrotropin [Units/volume] in Serum or Plasma TSH BLD Lab Routine Thyroid disorder screening Expected: 09/17/2022, Expires: 11/17/2022 [facility] Work Phone: Comment on above: Expected: 09/17/2022 , Expires: 11/17/2022 Start: 07-25-2022 DEPRESSION ASSESSMENT DEPRESSION ASS ESSMENT [facility] Start: 03-25-2022 Influenza vaccination INFLUENZA (#1) [facility] Start: 12-15-2021 LIPID SCREEN LIPID SCREEN [facility] Start: 2005 Hepatitis B Vaccine (1 of 3 - 19+ 3-dose series) Hepatitis B Vaccine (1 of 3 - 19+ 3-dose series) [facility] Start: 2005 Urine microalbumin profile [facility] Start: 2004 Depression Screening Depression Scre ening [facility] Start: 2004 HEPATITIS C SCREENING HEPATITIS C SC REENING [facility] Start: 2004 HIV SCREENING HIV SCREENING [facility] Start: 1986 COVID-19 VACCINE (#1) COVID-19 VACCI NE (#1) [facility] Start: 1986 HEPATITIS B (1 of 3 - 3-dose series) HEPATITIS B (1 of 3 - 3-dose series) [facility] Start: 1986 Hepatitis B Vaccine (1 of 3 - 3-dose series) Hepatitis B Vaccine (1 of 3 - 3-dose series) [facility] End: 11-26-2023 COLONOSCOPY DIAGNOSTIC COLONOSCOPY DIAGNOSTIC Endoscopy Routine Rectal bleeding 1 Occurrences starting 11/25/2022 until 11/26/2023 [facility] Work Phone: Comment on above: 1 Occurrences starti ng 11/25/2022 until 11/26/2023 SURGICAL PATHOLOGY SURGICAL PATH OLOGY Lab Routine Encounter for sterilization 10/18/2022 10:55 AM EDT [facility] Work Phone: End: 12-25-2023 XR ABDOMEN 2V ROUTINE SUPINE W UPRIGHT/DECUB/CTL XR ABDOMEN 2V ROUTINE SUPINE W UPRIGHT/DECUB/CTL Radiology Routine Periumbilical abdominal pain 1 Occurrences starting 11/25/2022 until 12/25/2023 [facility] Work Phone: Comment on above: 1 Occurrences starti ng 11/25/2022 until 12/25/2023 [facility] Payers Date Payer Category Payer Self-pay 2018 Medicaid [id number] 2018 Medicaid [id number] 2018 Medicare [employer] [facility] MEDICARE [id number] 2018-Present [phone] [address] [place] [address] Medicare [id number] 2018 Medicaid [id number] Self-pay SELF PAY INSURANCE [id number] Unknown [id number] Unknown [id number] Unknown [id number] Unknown [id number] Unknown [id number] Unknown [id number] Social History Date Type Detail Facility Start: 10-18-2014 End: 10-18-2022 Tobacco smoking status NHIS Ex-smoker [facility] Work Phone: History of tobacco use Current smoker [facility] Work Phone: Start: 10-18-2014 End: 10-18-2022 Tobacco use and exposure Smokeless tobacco non-user [facility] Work Phone: Start: 06-15-2022 End: 10-18-2022 Alcohol intake Current non-drinker of alcohol (finding) [facility] Start: 10-18-2014 End: 10-18-2022 Tobacco Comment quit in 2011 [facility] Start: 1985 Sex Assigned At Not on file [facility] Start: 04-28-2023 Alcohol intake Current drinke r of alcohol (finding) [facility] Start: 11-25-2022 End: 04-28-2023 History of Social function [facility] Work Phone: Start: 11-25-2022 End: 04-28-2023 Tobacco use panel [facility] Work Phone: Adult Depression Screening Assessment 0 [facility] Work Phone: Start: 07-24-2024 Alcoholic beverage intake Ex-drinker (finding) [facility] Start: 07-24-2024 Alcohol Comment occ. [facility] Start: 09-12-2024 Tobacco smoking stat us HIIS Smokes tobacco daily (finding) [facility] Start: 10-11-2024 Sex Male (finding) [facility] Start: 1985 Sex Assigned At Male W [facility] Clinical Notes 06-15-2022 to 11-22-2024 Note Date & Type Note Facility 11-22-2024 Note [facility] Medical Records Department [address] [place] [address] History Physical Exam 11/22/24 [facility] MR#: [id number] Acct: [id number] Name: ELAINA ADAN AM Rep #: [id number] : 1985 39 From: Jignesh Hampton DO PCP: BOBY Ordaz Status:REG [facility] Location: [place] [address] HPI - General General Date of Admission: 11/22/24 Date of Service: 11/22/24 Chief Complaint: Lower GI bleeding HPI Narrative ELAINA ADAN is a 39 M who presentsChief Complaint: pain and bleeding Details: ELAINA ADAN is a 39 M who presents to the office today for - rectal bleeding, intermittent, can be really bad colors water red - with bowel movements - has a BM daily - bleeding has been ongoing for a couple years - c/o lower abdominal pain - not related to PO intake - non-radiating, intermittent, not always associated with a BM - denies any constipation or diarrhea - denies any straining with BM - intermittent rectal pain after a BM - dull, ache - was on dicyclomine in the past and this caused constipation - c/o nausea associated with headache - reports after vomiting he has resolution of nausea and ROBLEDO - he does endorse N/V without headaches - denies any weight loss - rare HB - vomiting is at least once a month - cannabis smoker - regularly - started smoking in college - denies any EtOH use - rare use of IBU - Caffeine 2-3 cups per day PFSH Medical History Wears glasses Depression Anxiety Marijuana use Fatty liver High cholesterol Migraine headache Non-smoker Home Medications ???Medication ???Instructions ???Recorded ???Last Taken ???Type peg 3350-electrolytes 236 240 ml PO Q10M #4,000 mL 09/12/24 Unknown Rx gram-22.74 gram-6.74 gram-5.86 gram solution (Golytely) polyethylene glycol 3350 17 238 g PO .COMPLEX #238 grams 11/19 Unknown Rx gram/dose oral powder (Miralax) Allergy/AdvReac Type Severity Reaction Status Date / Time No Known Allergies Allergy Verified 11/22/24 09:29 Surgical History Enlarged adenoids History of wisdom tooth extraction Social History Smoking Status: Current every day smoker (Patient smoked marijuana this morning.) ROS Constitutional Constitutional: Denies fatigue, fever(s), poor appetite, weight gain or weight loss Gastrointestinal Gastrointestinal: Denies belching, bloating, change in bowel habits, change in stool character, chewing difficulty, coffee ground emesis, constipation, cramping, diarrhea, dyspepsia, dysphagia, early satiety, excessive flatus, fecal incontinence, heartburn, hematemesis, hematochezia, hemorrhoids, loose stools, melena, nausea, odynophagia, rectal bleeding, tenesmus, vomiting or weight changes Vital Signs Vital Signs Vital Signs: 11/22/24 09:31 11/22/24 09:33 11/22/24 09:57 Temperature 97.1 F L 97.1 F L Temperature Source Temporal Pulse Rate 81 81 Respiratory Rate 16 16 Respiratory Pattern Normal Blood Pressure 120/63 120/63 Blood Pressure Mean 82 Blood Pressure Source Monitor Blood Pressure Position Semi-Fowlers Blood Pressure Location Left Arm Pulse Ox 100 100 Oxygen Delivery Method Room Air Room Air Weight Weight: 182 lb Body Mass Index (BMI) 24.7 Physical Exam Const alert, oriented x3, no apparent distress and healthy appearing General Appearance: cooperative GI normal to inspection, nondistended, normoactive bowel sounds, soft to palpation, non-tender and non- distended Percussion: normal to percussion Rectal Exam: deferred Assessment Plan Assessment/Plan (1) Rectal bleeding: (2) Lower abdominal pain: PLAN: Assessment and Plan Assessment and Plan (1) Abdominal symptoms: (2) Nausea vomiting: Status: Acute (3) Lower abdominal pain: Status: Acute (4) Rectal bleeding: Status: Acute Orders: Orders CBC W/Diff, Automated Today K62.5 - Hemorrhage of anus and rectum, R10.30 - Lower abdominal pain, unspecified, R11.2 - Nausea with vomiting, unspecified Comprehensive Metabolic Profil Today K62.5 - Hemorrhage of anus and rectum, R10.30 - Lower abdominal pain, unspecified, R11.2 - Nausea with vomiting, unspecified Abdomen Limited Today R10.30 - Lower abdominal pain, unspecified, R11.2 - Nausea with vomiting, unspecified Medications: New pantoprazole take once daily 30 minutes before breakfast 40 mg PO QDAY 90 tabs 1RF peg 3350-electrolytes 236-22.74-6.74 -5.86 gram (Golytely) take as directed for split dose bowel prep 240 mL PO Q10M 4,000 mL 0RF Plan 39y/o male presents for consultation with complaints of rectal bleeding and generalized abdominal pain. He reports experiencing intermittent BRBPR for >2 year with (more content not included)... [facility] 10-03-2024 Radiology Diagnostic study note [facility] Imaging Services [address] [place], [place] [id number] Abdomen Limited MR#: [id number] Acct: [id number] Name: ELAINA ADAN AM Rep #: [id number] : 1985 M 39 From: Brandt Myers MD PCP: BOBY Ordaz Status: REG CL I Study:Abdomen Limited Date of Exam: 09/22 09/18 Exam# [id number] Ordering Dr: Bess Leigh PROCEDURE: ABDOMEN LIMITED REASON FOR EXAM: N/V PAIN Lower abdominal pain. COMPARISON: None FINDINGS: Liver: Diffusely echogenic suggesting fatty infiltration. It measures 15.4 cm. Gallbladder: No stones, sludge, wall thickening or tenderness. Common bile duct: Normal measuring it measures 3 mm.. Pancreas: Visualized portions are sonographically unremarkable. Visualized portions of the right kidney are unremarkable. No right upper quadrant ascites. US/Abdomen Limited IMPRESSION: Fatty infiltration of the liver. Reading Location: [place] [address] CC: BOBY Leigh; BOBY Aly ~ Candle Molder Machine: Signed [facility] 09-12-2024 Evaluation note Diagnosis Onset Date Resolution Lower abdominal pain acute Febr uary 2024 10:28am Nausea & vomiting acute Februar y 2024 10:28am Rectal bleeding acute September 12, 2024 10:28am Abdominal symptoms noneactive Februa ry 2024 10:28am [facility] Work Phone: [phone]) 131-945901-29-2025 Telephone encounter Note* Telephone Encounter - Shawn Hawkins - 08/22/2024 5:12 PM EST Faxed referral for Gastroenterology and Demographic sheet. Pt called stating he was having a hard time getting a hold of Dr. Hampton's office. Called office and talk to scheduling she asked us to refax order. Faxed to [phone] [facility]01-29-2025 Miscellaneous Notes* Telephone Encounter - Shawn Hawkins - 08/22/2024 5:12 PM EST Faxed referral for Gastroenterology and Demographic sheet. Pt called stating he was having a hard time getting a hold of Dr. Hampton's office. Called office and talk to scheduling she asked us to refax order. Faxed to [phone] documented in this encounter[facility] Telephone encounter Note * Telephone Encounter - Concepción Singleton MA - 07/26/2024 9:58 AM EST Patient's girlfriend on HIPAA informed of results and states patient will go next week to complete the rest of the labs. Concepción Singleton MA [facility]01-02-2025 Telephone encounter Note* Telephone Encounter - Concepción Singleton MA - 07/26/2024 9:58 AM EST ----- Message from Joyce Anton APRN.MANAGER OF EMPLOYEE RELATIONS sent at 07/24/2024 11:53 AM EST ----- Lipid panel is normal- did he not get the rest of the labs done? [facility]01-02-2025 Miscellaneous Notes* Telephone Encounter - Concepción Singleton MA - 07/26/2024 9:58 AM EST Patient's girlfriend on HIPAA informed of results and states patient will go next week to complete the rest of the labs. Concepción Singleton MA * Telephone Encounter - Concepción Singleton MA - 07/26/2024 9:58 AM EST ----- Message from Joyce Anton APRN.MANAGER OF EMPLOYEE RELATIONS sent at 07/24/2024 11:53 AM EST ----- Lipid panel is normal- did he not get the rest of the labs done? documented in this encounter[facility] Instructions* Patient Instructions* Joyce Anton APRN.CNP - 07/24/2024 10:46 AM EST Images from the original note were not included. Improving Your Health with Fiber This guide provides basic information to help you start increasing dietary fiber in your diet. These are general guidelines that may be tailored to meet your needs. Fiber is an important dietary substance to help support your health. Making changes in your current eating habits will help you eat more healthfully. Most fiber-containing foods are also good sources of vitamins, minerals, and antioxidants, which offer many health benefits. A registered dietitian can provide in-depth nutrition education to help you develop a personal action plan. What is fiber? Fiber is the structural part of plant foods--such as fruits, vegetables, and grains--that our bodies cannot digest or break down. There are two kinds of fiber: soluble and insoluble. Soluble fiber: dissolves in water to form a gummy gel. It can slow down the passage of food from the stomach to the intestine. Examples: dried beans, oats, barley, banana, potatoes, and soft parts of apples and pears Insoluble fiber: often referred to as roughage because it does not dissolve in water. It holds onto water, which helps produce softer, bulkier stools to help regulate bowel movements. Examples: whole bran, whole grain products, nuts, corn, carrots, grapes, berries, and peels of apples and pears What other things does fiber do? Research has shown that a diet rich in fiber is associated with many health benefits, including thefollowin. Lowers cholesterol--Soluble fiber has been shown to lower cholesterol by binding to bile (composed of cholesterol) and taking it out of the body. This may help reduce the risk of heart disease. 2. Better regulates blood sugar levels--A high-fiber meal slows down the digestion of food into theintestines, which may help to keep blood sugars from rising rapidly. 3. Weight control--A high-fiber diet may help keep you zimmerman longer, which prevents overeating andhunger between meals. 4. May prevent intestinal cancer--Insoluble fiber increases the bulk and speed of food moving through the intestinal tract, which reduces time for harmful substances to build up. 5. Constipation--Constipation can often be relieved by increasing the fiber or roughage in your diet. Fiber works to help regulate bowel movements by pulling water into the colon to produce softer, bulkier stools. This action helps to promote better regularity. How much fiber should I eat? The recommendation is to consume about 20-35 grams of total fiber per day, with 10-15 grams from soluble fiber. This can be accomplished by choosing 6 ounces of grains (3 or more ounces from whole grains), 2 cups of vegetables, and 2 cups of fruit per day (based on a 2,000 calorie/day pattern). Note: Eating a high-fiber diet may interfere with the absorption and effectiveness of some medications. Speak to your doctor about which medications to take with caution and when to take them. Fiber also binds with certain nutrients and carries them out of the body. To avoid this, aim for the recomm ended 20-35 grams of fiber per day. Some studies indicate that up to 50 grams of dietary fiber may help control blood sugars for people with diabetes. When eating a high-fiber diet, be sure to drink at least eight glasses of fluid each day. Tips for increasing dietary fiber in your diet: Add fiber to your diet slowly. Too much fiber all at once may cause cramping, bloating, and constipation. When adding fiber to your diet, be sure to increase fluids (at least 64 ounces per day) to prevent constipation. Buy bread with 2-4 grams of dietary fiber per slice. Buy cereals with at least 5 grams of dietary fiber per serving. Choose cereals with a whole grain such as whole wheat or whole grain rolled oats. Choose raw fruits and vegetables in place of juice. Choose products that have a whole grain listed as the first ingredient, not enriched flour. Whole wheat flour is a whole grain--wheat flour is not. Try alternative fiber choices such as whole buckwheat, whole wheat couscous, quinoa, and bulgur. Popcorn is a whole grain. Serve it low-fat without butter for a healthier snack choice. Try whole wheat bread and whole wheat pastas. Sprinkle bran in soups, cereals, baked products, spaghetti sauce, ground meat, and casseroles. Branalso mixes well with orange juice. Use dried peas, beans, and legumes in main dishes, salads, or side dishes such as rice or pasta. Eat the skins of raw fruits and vegetables. Add dried fruit to yogurt, cereal, rice, and muffins. Try brown rice and whole grain pastas. Choose crackers with a whole grain listed as the first ingredient. Look for whole grain rye and wheat crackers. How to read a food label Food labels are standardized by the [place]. government's National Labeling and Education Act (NLEA). Nutrition labels and an ingredient list are required on most foods, so that you can make the best selection for a healthy lifestyle. Review the food label. Determine the total amount of fiber in this product or ask your dietitian or health care provider to show you how to read food labels and apply the information to your personal needs. In order for a product to be labeled high fiber, it must contain 5 grams or more of dietary fiber per serving. Fiber supplements Fiber supplements may be an option if you are not able to get enough fiber from your diet. Fiber supplements can be used to normalize both constipation and diarrhea. Check with your doctor before starting any kind of supplement. Read labels for fiber carefully. Drink at least 8 ounces of liquids with your supplement. Taking some fiber supplements without adequate liquids may cause the fiber to swell and may cause choking. Some fiber supplements to consider are Benefiber (hydrolyzed guar gum-soluble fiber), Metamucil (psyllium), Konsyl (psyllium), Citrucel (methylcellulose), Fibercon (calcium polycarbophil), and Fiberall (multiple sources of fiber). Psyllium husk and guar gum are soluble fibers. Consider keeping a food journal and tracking how much fiber you eat in a typical day. Use the fiber content chart in this handout as a guide to meeting your high fiber goal or check with www.NAL.usda.gov/fnic for additional information on the dietary fiber content of food. Food Category Food Serving Size Total Fiber (grams) Soluble Fiber (grams) Starches, Grains, Starchy vegetables Breads: Bagel-whole wheat Light white/wheat Isi-Whole wheat Pumpernickel Whole wheat [place] 3 1/2 inches 2 slices 7 inches slice slice slice 3 1 4 3 2 2 1 trace 1 1 trace 1 Cereals: Bran Flakes Cheerios Oatmeal Fiber One All Bran Kashi Heart to Heart 3/4 cup 1 1/4 cup 1 cup cooked 1/2 cup 2/3 cup 3/4 cup 5 4 4 14 13 5 trace 1 2 1 1 1 Grains: Barley Brown rice Pasta-whole wheat 1/2 cup cooked 1/2 cup 1/2 cup cooked 4 2 3 1 trace 1 Legumes and starchy vegetables: Garbanzo beans Kidney beans Lentils Potato (with skin) Potatoes, sweet Squash (winter) Green peas, cooked Avila beans [place], cooked 1/2 cup 1/2 cup 1/2 cup 1 medium 1/2 cup 1/2 cup 1/2 cup 1/2 cup 1/2 cup 4 6 5 3 4 3 4 7 2 1 3 1 1 2 2 1 3 trace Nuts and Seeds Almonds Peanuts [place] seeds Walnuts 1/4 cup 1/4 cup 1/4 cup 1/4 cup 3 3 3 2 1 1 1 trace Fruits Apple with skin Banana Blueberries Grapefruit [place] Pear with skin Prunes Strawberries 1 medium 1 medium 1 cup 1/2 cup 1 medium 1 medium 3 1 cup 3 2 2 1 3 4 2 4 1 1 trace 1 2 2 1 1 Vegetables, non-starchy Broccoli [place] sprouts Cabbage-green Carrot Cauliflower Green beans Kale Spinach Squash (zucchini) 1/2 cup 1/2 cup 1 cup, fresh 1/2 cup cooked 1/2 cup cooked 1/2 cup 1/2 cup 1/2 cup 1/2 cup 3 4 2 2 1 2 3 2 1 1 2 1 1 trace 1 1 1 1 Copyright 2918-9034 The [facility]. All rights reserved. This information is provided by the [facility] and is not intended to replace the medical advice of your doctor or health care provider. Please consult your health care provider for advice about a specific medical condition. For additional health information, please contact the Center for Consumer Health Information at the [facility] or toll-free extension [phone]. If you prefer, you may visit [email or web address] or [email or web address]. This document was last reviewed on: 2009 index#[id number] documented in this encounterSelect [facility]24 NoteHNO ID: [id number] Author: JOYCE ANTON APRN.CNP Service: ? Author Type: Nurse Practitioner Type: Progress Notes Filed: 07/24/2024 12:12 Note Text: CHIEF COMPLAINT: Elaina Adan is a 39 year old male who presents today for a GI referral. He reports he is still having rectal bleeding. He was referred to Dr. Hampton last year but he wasn't taking new patient's at the time. He states the bleeding can sometimes be bright red and is sometimes dark red. Not necessarily only with BM or wiping. He does have generalized abdominal pain. No N/V, diarrhea, constipation. He usually has a BM once a day, last BM was yesterday. No fevers or weight loss. He does note feeling tired a lot. I reviewed past medical, surgical, social, and family histories today and updated chart. Allergies, chronic medications, and supplements were also reviewed. The history is provided by the patient. PAST MEDICAL HISTORY Diagnosis Date Abdominal pain Alopecia Social phobia PAST SURGICAL HISTORY Procedure Laterality Date PAST SURGICAL HISTORY OF 05/2014 wisdom teeth extraction PAST SURGICAL HISTORY OF at age 13 adenoid Social History Tobacco Use Smoking status: Former Smokeless tobacco: Never Tobacco comments: quit in 2011 Vaping Use Vaping status: Never Used Substance Use Topics Alcohol use: Not Currently Comment: occ. Drug use: Yes Types: Marijuana ALLERGIES No Known Allergies Family History Problem Relation Age of Onset other (anxiety) Mother other (thyroid cancer) Mother other (depression) Sister Current Outpatient Medications Medication Sig Dispense Refill exxejnbun-fjnmcerhi-oeeslxtt-white petrolatum (PREPARATION H) 0.25-1 % crea by RECTAL route three times a day as needed. 26 g 1 No current facility-administered medications for this visit. Review of Systems Constitutional: Positive for fatigue. Negative for appetite change, chills, diaphoresis, fever and unexpected weight change. Respiratory: Negative. Cardiovascular: Negative. Gastrointestinal: Positive for abdominal pain, anal bleeding, blood in stool and rectal pain. Negative for abdominal distention, constipation, diarrhea, nausea and vomiting. Genitourinary: Negative. Musculoskeletal: Negative. Neurological: Negative. BP 116/70 Pulse 75 Temp 97.5 Resp 16 Ht 6' 0 (1.83m) Wt 184 lb (83.5kg) SpO2 97% BMI 24.95 kg/(m2). Physical Exam Vitals and nursing note reviewed. Constitutional: Appearance: Normal appearance. HENT: Mouth/Throat: Mouth: Mucous membranes are moist. Eyes: Pupils: Pupils are equal, round, and reactive to light. Neck: Thyroid: No thyromegaly. Cardiovascular: Rate and Rhythm: Normal rate and regular rhythm. Heart sounds: Normal heart sounds, S1 normal and S2 normal. Pulmonary: Effort: Pulmonary effort is normal. Breath sounds: Normal breath sounds and air entry. Abdominal: General: Bowel sounds are normal. There is no distension. Palpations: Abdomen is soft. There is no hepatomegaly or splenomegaly. Tenderness: There is abdominal tenderness in the right lower quadrant and left lower quadrant. There is no guarding. Negative signs include Butler's sign and McBurney's sign. Musculoskeletal: Cervical back: Neck supple. Skin: General: Skin is warm and dry. Neurological: Mental Status: He is alert and oriented to person, place, and time. Psychiatric: Mood and Affect: Mood normal. Behavior: Behavior is cooperative. ASSESSMENT/PLAN: 1. Rectal bleeding - ICD9: 569.3, ICD10: K62.5 (primary diagnosis) - CONSULT TO GASTROENTEROLOGY - COMPLETE BLOOD COUNT AND DIFFERENTIAL 2. Generalized abdominal pain - ICD9: 789.07, ICD10: R10.84 Etiology unclear Differential Diagnosis includes IBS, Constipation, IBD, and Diverticulitis - Increase fiber in diet - Treatment for constipation discussed - Referral to Gastroenterology - COMPREHENSIVE METABOLIC PANEL - THYROID STIMULATING HORMONE 3. Hemorrhoids, unspecified hemorrhoid type - ICD9: 455.6, ICD10: K64.9 - CONSULT TO GASTROENTEROLOGY - COMPLETE BLOOD COUNT AND DIFFERENTIAL - PHENYLEPHRINE 0.25 %-PRAMOXINE 1 %-GLYCERIN-WH.PETROLATUM RECTAL CREAM 4. Screening for lipid disorders - ICD9: V77.91, ICD10: Z13.220 - LIPID PANEL BASIC New medication(s) prescribed today: Yes: See above. Discussed new medication dosage, usage, goals of therapy, and side effects. Patient has been apprised of any potential drug interactions to be aware of. Patient expresses understanding. Counseling completed in adopting health behaviors such as avoiding excessive alcohol use, avoid tobacco use, improve nutrition, and engage in physical activities. Copy of written care plan, clinical summary, treatment plan, new medications, goals, and self management requirements were given to patient. Joyce Anton APRN.[facility]12-31-2024 History of Present illness Narrative* Joyce Anton APRN.[facility] - 07/24/2024 10:28 AM EST CHIEF COMPLAINT: Elaina Adan is a 39 year old male who presents today for a GI referral. He reports he is still having rectal bleeding. He was referred to Dr. Hampton last year but he wasn't taking new patient's at the time. He states the bleeding can sometimes be bright red and is sometimes dark red. Not necessarily only with BM or wiping. He does have generalized abdominal pain. No N/V, diarrhea, constipation. He usually has a BM once a day, last BM was yesterday. No fevers or weight loss. He does note feeling tired a lot. I reviewed past medical, surgical, social, and family histories today and updated chart. Allergies,chronic medications, and supplements were also reviewed. The history is provided by the patient. PAST MEDICAL HISTORY Diagnosis Date Abdominal pain Alopecia Social phobia PAST SURGICAL HISTORY Procedure Laterality Date PAST SURGICAL HISTORY OF 05/2014 wisdom teeth extraction PAST SURGICAL HISTORY OF at age 13 adenoid Social History Tobacco Use Smoking status: Former Smokeless tobacco: Never Tobacco comments: quit in 2011 Vaping Use Vaping status: Never Used Substance Use Topics Alcohol use: Not Currently Comment: occ. Drug use: Yes Types: Marijuana ALLERGIES No Known Allergies Family History Problem Relation Age of Onset other (anxiety) Mother other (thyroid cancer) Mother other (depression) Sister Current Outpatient Medications Medication Sig Dispense Refill kngkibjih-oiuegbpih-jmyntncb-white petrolatum (PREPARATION H) 0.25-1 % crea by RECTAL route three times a day as needed. 26 g 1 No current facility-administered medications for this visit. Review of Systems Constitutional: Positive for fatigue. Negative for appetite change, chills, diaphoresis, fever and unexpected weight change. Respiratory: Negative. Cardiovascular: Negative. Gastrointestinal: Positive for abdominal pain, anal bleeding, blood in stool and rectal pain. Negative for abdominal distention, constipation, diarrhea, nausea and vomiting. Genitourinary: Negative. Musculoskeletal: Negative. Neurological: Negative. BP 116/70 Pulse 75 Temp 97.5 Resp 16 Ht 6' 0 (1.83m) Wt 184 lb (83.5kg) SpO2 97% BMI24.95 kg/(m^2). Physical Exam Vitals and nursing note reviewed. Constitutional: Appearance: Normal appearance. HENT: Mouth/Throat: Mouth: Mucous membranes are moist. Eyes: Pupils: Pupils are equal, round, and reactive to light. Neck: Thyroid: No thyromegaly. Cardiovascular: Rate and Rhythm: Normal rate and regular rhythm. Heart sounds: Normal heart sounds, S1 normal and S2 normal. Pulmonary: Effort: Pulmonary effort is normal. Breath sounds: Normal breath sounds and air entry. Abdominal: General: Bowel sounds are normal. There is no distension. Palpations: Abdomen is soft. There is no hepatomegaly or splenomegaly. Tenderness: There is abdominal tenderness in the right lower quadrant and left lower quadrant. There is no guarding. Negative signs include Butler's sign and McBurney's sign. Musculoskeletal: Cervical back: Neck supple. Skin: General: Skin is warm and dry. Neurological: Mental Status: He is alert and oriented to person, place, and time. Psychiatric: Mood and Affect: Mood normal. Behavior: Behavior is cooperative. ASSESSMENT/PLAN: 1. Rectal bleeding - ICD9: 569.3, ICD10: K62.5 (primary diagnosis) - CONSULT TO GASTROENTEROLOGY - COMPLETE BLOOD COUNT AND DIFFERENTIAL 2. Generalized abdominal pain - ICD9: 789.07, ICD10: R10.84 Etiology unclear Differential Diagnosis includes IBS, Constipation, IBD, and Diverticulitis - Increase fiber in diet - Treatment for constipation discussed - Referral to Gastroenterology - COMPREHENSIVE METABOLIC PANEL - THYROID STIMULATING HORMONE 3. Hemorrhoids, unspecified hemorrhoid type - ICD9: 455.6, ICD10: K64.9 - CONSULT TO GASTROENTEROLOGY - COMPLETE BLOOD COUNT AND DIFFERENTIAL - PHENYLEPHRINE 0.25 %-PRAMOXINE 1 %-GLYCERIN-WH.PETROLATUM RECTAL CREAM 4. Screening for lipid disorders - ICD9: V77.91, ICD10: Z13.220 - LIPID PANEL BASIC New medication(s) prescribed today: Yes: See above. Discussed new medication dosage, usage, goals of therapy, and side effects. Patient has been apprised of any potential drug interactions to be aware of. Patient expresses understanding. Counseling completed in adopting health behaviors such as avoiding excessive alcohol use, avoid tobacco use, improve nutrition, and engage in physical activities. Copy of written care plan, clinical summary, treatment plan, new medications, goals, and self management requirements were given to patient. Joyce Anton APRN.CNP documented in this encounterSelect [facility] Telephone encounter Note * Telephone Encounter - Nafisa Alvarez - 07/04/2024 3:51 PM EST No Show Documentation Elaina Adan no showed for an appointment on 07/04/2024 with Tc Aly APRN.CNP at 2:40pm. He was scheduled for stomach issues. I called and was unable to reach the patient regarding his missed appointment. Resources discussed/offered to patient: na No show determined to be fault of patient: Yes This is the patients first no show in the last 12 months. Patient was rescheduled for na. Letter mailed : Yes Is this the Third or Fourth No Show? No Nafisa Alvarez July 04, 2024 3:52 PM [facility]12-11-2024 Miscellaneous Notes* Telephone Encounter - Nafisa Alvarez - 07/04/2024 3:51 PM EST No Show Documentation Elaina Adan no showed for an appointment on 07/04/2024 with Tc Aly APRN.CNP at 2:40pm. He was scheduled for stomach issues. I called and was unable to reach the patient regarding his missed appointment. Resources discussed/offered to patient: na No show determined to be fault of patient: Yes This is the patients first no show in the last 12 months. Patient was rescheduled for na. Letter mailed : Yes Is this the Third or Fourth No Show? No Nafisa Alvarez July 04, 2024 3:52 PM documented in this encounterSelect [facility] Instructions* Patient Instructions* Joyce Anton APRN.CNP - 04/28/2023 10:39 AM EDT [facility] [address] [address] 500 [facility] [address] [address] Clinics: Tuesday - : 8:00 am - 4:30 pm Tuesday: 8:00 am - 4:00 pm Endoscopy Center: Tuesday - Tuesday: 7:00 am - 3:30 pm T: documented in this encounterSelect Medical [facility]10-05-[facility]23 History of Present illness Narrative* Joyce Anton APRN.CNP - 04/28/2023 10:29 AM EDT CHIEF COMPLAINT: Elania Adan is a 37 year old male who presents for possible hernia in his belly button. I reviewedpast medical, surgical, social, and family histories today and updated chart. Allergies, chronic medications, and supplements were also reviewed. He first noticed a small bump about a month ago. He denies any pain, N/V, abdominal pain. He deniesany recent injury. Does have to lift his kids up frequently. History of rectal bleeding, lower abdominal pain, and hemorrhoids. He was referred to GI and neededa colonoscopy and he tried contacting a few locations but one wasn't taking new patients and the other didn't take his insurance. He is limited distance due to lack of transportation. He is not having the rectal bleeding as often or severe. The history is provided by the patient. No superintendent compressor stations was used. PAST MEDICAL HISTORY Diagnosis Date Abdominal pain Alopecia Social phobia PAST SURGICAL HISTORY Procedure Laterality Date PAST SURGICAL HISTORY OF 05/2014 wisdom teeth extraction PAST SURGICAL HISTORY OF at age 13 adenoid Social History Tobacco Use Smoking status: Former Smokeless tobacco: Never Tobacco comments: quit in 2011 Vaping Use Vaping Use: Never used Substance Use Topics Alcohol use: Yes ALLERGIES No Known Allergies Family History Problem Relation Age of Onset other (anxiety) Mother other (thyroid cancer) Mother other (depression) Sister Current Outpatient Medications Medication Sig Dispense Refill hydrocortisone-pramoxine (PRAMOX) 25-18 mg suppository 1 Suppository by RECTAL route twice daily. 28 Suppository 0 No current facility-administered medications for this visit. Review of Systems Constitutional: Negative for appetite change, chills, diaphoresis and fever. Respiratory: Negative. Cardiovascular: Negative. Gastrointestinal: Negative for abdominal pain, blood in stool, constipation, diarrhea, nausea, rectal pain and vomiting. Small lump in belly button Genitourinary: Negative. BP 102/60 Pulse 60 Temp 97.6 Resp 18 Ht 6' 0 (1.83m) Wt 180 lb (81.6kg) SpO2 98% BMI24.41 kg/(m^2). Physical Exam Vitals and nursing note reviewed. HENT: Mouth/Throat: Mouth: Mucous membranes are moist. Eyes: Pupils: Pupils are equal, round, and reactive to light. Cardiovascular: Rate and Rhythm: Normal rate and regular rhythm. Heart sounds: Normal heart sounds. Pulmonary: Breath sounds: Normal breath sounds. Abdominal: General: Bowel sounds are normal. There is no distension. Palpations: Abdomen is soft. Tenderness: There is no abdominal tenderness. Hernia: A hernia is present. Hernia is present in the umbilical area (small, approximately size of a pencil eraser, reducible). Skin: General: Skin is warm and dry. Findings: No ecchymosis, erythema or rash. Neurological: Mental Status: He is oriented to person, place, and time. Psychiatric: Mood and Affect: Mood normal. Behavior: Behavior normal. Cognition and Memory: Cognition normal. ASSESSMENT/PLAN: 1. Umbilical hernia without obstruction and without gangrene - ICD9: 553.1, ICD10: K42.9 (primary diagnosis) - Continue to monitor. Advised to follow up if it becomes larger than a quarter or becomes painful. 2. Rectal bleeding - ICD9: 569.3, ICD10: K62.5 - CONSULT TO GASTROENTEROLOGY 3. Hemorrhoids, unspecified hemorrhoid type - ICD9: 455.6, ICD10: K64.9 - CONSULT TO GASTROENTEROLOGY 4. Lower abdominal pain - ICD9: 789.09, ICD10: R10.30 - CONSULT TO GASTROENTEROLOGY New medication(s) prescribed today: None. Counseling completed in adopting health behaviors such as avoiding excessive alcohol use, avoid tobacco use, improve nutrition, and engage in physical activities. Copy of written care plan, clinical summary, treatment plan, new medications, goals, and self management requirements were given to patient. Joyce Anton APRN.CNP documented in this encounterSelect Medical [facility]06-01-2023 Miscellaneous Notes* Telephone Encounter - Leonie Altamirano MA - 12/23/2022 2:40 PM EDT Faxed. Lm on pt. Vm that it has been faxed. Leonie Altamirano MA * Telephone Encounter - Tc Aly APRN.CNP - 12/23/2022 1:58 PM EDT Thank you, orders placed. Tc Aly APRN.CNP * Telephone Encounter - Rosa Serra - 12/22/2022 2:52 PM EDT Friend, Amy Espinal, called and requested a referral to [facility] in [place]. Would like it faxed to [phone]. FYI... Patient has had a Distance Health visit 11/25/22 with [facility] gastro. documented in this encounterSelect Medical [facility]05-04-2023 History of Present illness Narrative* Genevieve Segovia PA-C - 11/25/2022 3:34 PM EDT GASTROENTEROLOGY NEW PATIENT PHONE VISIT Patient consented to this visit being over the phone and understands there are limitations inherentin this type of visit. I have communicated my name and active licensure. The patient's identity and physical location wereverified at the time of this visit. Either the patient or their legal treasury representative has been informed of the risks and benefits of -- and alternatives to -- treatment through a remote evaluation andconsents to proceed with the evaluation remotely. This is a virtual visit using Audio only. It required patient-provider interaction for the medical decision making as documented below. CC: rectal bleeding HPI: Elaina Adan is a 37 year old male who presents for rectal bleeding. This has been occurring for quite a while. The patient states it is when he wipes and in the toilet. The patient states sometimes he does not have any and then other times it is like light spotting. The patient states it is a lot at times and has to wipe multiple times. The patient was given a few suppositories and they would not give him anymore. The patient states he does not feel it helped. The patient has not tried OTC medications. The patient states the blood is usually bright red or slightly dark with some clotting. The patient has never had a colonoscopy. Denies family hx of IBD and IBS. NSAID use: Ibuprofen on occasion. Unexplained weight loss: none. Take Blood thinners: none. Bowel Habits: The patient states 1 time in the morning. The patient does not strain or have to push. Sometimes it takes a while to go. The patient does not feel constipated. Does admit to having a large amount of stool. Fam Hx: negative colon cancer. Current Outpatient Medications Medication Sig hydrocortisone-pramoxine (PRAMOX) 25-18 mg suppository 1 Suppository by RECTAL route twice daily. No current facility-administered medications for this visit. PAST MEDICAL HISTORY Diagnosis Date Abdominal pain Alopecia Social phobia PAST SURGICAL HISTORY Procedure Laterality Date PAST SURGICAL HISTORY OF 05/2014 wisdom teeth extraction PAST SURGICAL HISTORY OF at age 13 adenoid FAMILY HISTORY Problem Relation Age of Onset other (anxiety) Mother other (thyroid cancer) Mother other (depression) Sister Social History Tobacco Use Smoking status: Former Smokeless tobacco: Never Tobacco comments: quit in 2011 Vaping Use Vaping Use: Never used Substance Use Topics Alcohol use: No Drug use: No ALLERGIES No Known Allergies GI SPECIFIC ROS: Difficulty swallowing / foods sticking in throat: No Heartburn: No Hoarseness: No Chronic cough: No Regurgitation: No Chest pain: No Filling up quickly at meals: Yes- eating smaller meals. Loss of appetite: No Nausea: Yes- comes and goes. Mornings. Vomiting: No Abdominal pain: Yes- upper abdomen and navel. After BMs does have some abdominal pain. Recent change in bowel movements: No Bloody or black, bowel movements: Yes Constipation: No- does have a large amount of stool a couple times a month. Diarrhea: No Loss of control of bowel movements: No PHYSICAL EXAMINATION: No physical exam was performed due to this visit being performed via phone to decrease exposure to Covid 19. Patient was awake, alert, oriented, was able to speak clearly and answer questions. Patient did not seem to be in any distress. Patient appeared comfortable and was sitting and moving around comfortably. ASSESSMENT AND PLAN: Impression:Impression: This is a 37-year-old male who presents to the office today for a consult for a colonoscopy and rectal bleeding. Patient is having symptoms of rectal bleeding, nausea, feeling up quickly at meals, abdominal pain, bloody stools, and large amount of stools. The patient has never had a colonoscopy. This patient is not on blood thinners. We discussed the procedure, instructions, and patient agrees to proceed. The patient verbalized understanding and agreed with the plan. Theystated that they had no further questions. The patient is going to have an x-ray to assess stool burden. While the patient does not feel constipated, I am interested to see if there is a large amountof stool found in his colon on x-ray. The patient is going to have a colonoscopy and then follow-upwith me to discuss results. The patient is to use [id number] hemorrhoid medications as neededfor bleeding. I spent a total of 26 minutes on the date of the service which included preparing to see the patient, completing clinical documentation, counseling and educating the patient/family/caregiver, and ordering medications, tests, or procedures. documented in this encounterSelect Medical [facility]03-27-2023 NoteHNO ID: [id number] Author: Shlomo Haas MD Service: ? Author Type: Physician Type: Progress Notes Filed: 10/18/2022 11:01 AM Note Text: 10/18/2022 UNIVERSAL PROTOCOL / SAFETY CHECKLIST Procedure to be Performed: vasectomy Sign In: A Moment of CARE was completed. Personnel directly involved with the procedure wore the appropriate PPE (Personal Protective Equipment). Patient/Surrogate Stated/Verified: PATIENT VERIFIED(optional for EMERGENT procedures): Patient name, Date of , Relevant allergies, and The intended procedure Time Out Communication: Intended patient and procedure match the source documents. Consent documented and matches the intended procedure. Sign Out: SIGN OUT (optional for EMERGENT procedures): All specimen containers correctly labeled. Shlomo Haas MD HPI: 37 year old male reports for vasectomy. He again confirms he desires permanent sterilization and has no desire to father children in the future. Operation: Vasectomy Anatomic Site: Vas Deferens Approach: Percutaneous Device: None Qualifier: None PMHx/PSHx: see above, otherwise unchanged Rx: No scheduled NSAIDs or blood thinner for past 5 days. ROS: No new or inguinal complaints Labs: None Imaging: None PE: General: Well masculinized, well nourished male Psych: euthymic, NAD Neuro: AANDOx3 exam: see below. Procedure: Vasectomy Patient?s identity was confirmed, written informed consent was obtained, and the time out performed before the procedure was initiated The patient was placed in a supine position and the genitalia were prepped and draped in a sterile manner. Examination revealed no scrotal lesions, descended testicles bilaterally without masses and readily palpable vasa deferens. The right scrotal skin and cord structures was anesthetized with 5 cc of 2% lidocaine without epinephrine. A No-scapel technique was used to isolated and remove a small portion of the vas deferens. The vasal ends were secured with clips and hemostasis was ensured. The skin edges were closed with an absorbable suture. The procedure was repeated on the patient?s left side. The patient tolerated the procedure well. Postoperative care, limitations, and expectations were reviewed with the patient. He was again instructed to use an alternate form of control until he is notified that his postprocedure semen analysis reveals no sperm. Imp: S/p vasectomy P: 1) Semen Analysis in 3 months 2) post-procedure instructions given to pt with verbalization of understanding. Shlomo Haas [facility]03-27-2023 Nurse Note* Colton Wheeler Ma - 10/18/2022 11:40 AM EDT AMBULATORY VASECTOMY PROCEDURE PREOPERATIVE/PROCEDURAL VERIFICATION: Patient verified by: Name and Date of UNIVERSAL PROTOCOL / SAFETY CHECKLIST Procedure to be Performed: Vasectomy Sign In: A Moment of CARE was completed. Personnel directly involved with the procedure wore the appropriate PPE (Personal Protective Equipment). No special equipment needed. Patient/Surrogate Stated/Verified: PATIENT VERIFIED(optional for EMERGENT procedures): Patient name, Date of , Relevant allergies, and The intended procedure Time Out Communication: Intended patient and procedure match the source documents. Consent documented and matches the intended procedure. No relevant labs, photos, and/or imaging studies were applicable for review. No correct side/site applicable for marking and visibility. No medications required for procedure. No fire risk assessment and interventions applicable. No implant(s) inserted. Sign Out: SIGN OUT (optional for EMERGENT procedures): All specimen containers correctly labeled. All instruments, equipment, possible retained foreign bodies accounted for. Post-procedure follow-up management communicated and Plan of Care Visit completed when applicable. Colton Wheeler Ma Medications and allergies reviewed and updated. Latex Allergy:No Last aspirin or anticoagulant taken: NONE Pre-Procedure Vital Signs: BP Blood pressure 101/69, pulse 86, resp. rate 18, height 182.9 cm (6'),weight 82.1 kg (181 lb). Prep: STERILE PREP Local Anesthetic Given: 20 mL NESACAINE 3% Suture: CHROMIC GUT 3-0 Specimens: obtained: RIGHT/LEFT VAS DEFERENS Dressings: STERILE GAUZE Homegoing Prescriptions: NONE written and verbal post procedure instructions given and reviewed: Yes Patient verbalizes understanding: Yes Return to clinic: NEEDED. Nurse: Colton Wheeler Ma documented in this encounterSelect Medical [facility]03-27-2023 Instructions* Patient Instructions* Colton Wheeler Ma - 10/18/2022 10:48 AM EDT Images from the original note were not included. HOME GOING/DISCHARGE INSTRUCTIONS FOR VASECTOMY PATIENTS Please call the following numbers with any questions or concerns: [facility]: #[phone], and also #[phone] [facility] patients: [phone] M-F 8am-5pm, after hours [phone] ACTIVITIES Avoid strenuous physical exercise and heavy lifting for 10 days (as in bearing down, squatting or heavy weight lifting) NO bouncing, bumping or jarring NO contact sports, no exercising, no golf, no vacations/trips NO swimming, bathing or engaging in sexual activity NO going out to dinner or shopping Avoid lifting children or pets for 7-[address] them on your lap Rest with your legs elevated in a reclining chair Avoid sexual stimulation for ten days. After this time, you may return to sexual activity. A METHODOF CONTROL should be used until your semen analysis showed negative results for sperm x 2. Itis normal to notice blood or a brown color in the semen during the first few weeks after the procedure. You may go back to work in 2-3 days PRECAUTIONS Follow the usual precautions against until the results of the semen analysis are known. If sperm are detected, it may be necessary to continue precautions until another sample is submitted at a later date. You will need to come back for Follow up appointment in the time advised by your Provider with a semen specimen in the cup provided. Make sure to continue precautions until negative specimens by provider. DIET Resume your previous diet MEDICATIONS Use Acetaminophen for mild pain or discomfort Avoid Aspirin or Aspirin-containing products for 5 days WOUND CARE Apply ice packs to the scrotal area over the underwear every 8 hours for the first 1-2 days for notmore than 30 minutes at a time. Use a jock strap (scrotal support) for 10 days. A small amount of oozing of blood, tenderness, and mild swelling are expected and should subside nancy few days. If a small amount of bleeding occurs apply pressure to the area with a sterile gauze pad for 10 minutes. Do not apply ointments or creams. A small black dot in the scrotum or penis is normal and may subside in a few days. You may shower but do not rub the wound area or apply direct water stream to the scrotum. No soaking in a hot tub, bathtub, or swimming pool for 10 days. Dry the scrotum by blotting with a towel. DO NOT RUB. All stitches will dissolve by themselves; they do not need to be removed. WHEN TO CALL THE DOCTOR If severe pain, or large scrotal swelling or bleeding occur, excessive pain/swelling, purulent discharge from the incision or enlarging lump in the scrotum call the office Martha([phone] or [phone]) Zoya ([phone]) or go the hospital emergency room documented in this encounterSelect Medical [facility]03-27-2023 History of Present illness Narrative* Shlomo Haas MD - 10/18/2022 10:21 AM EDT 10/18/2022 UNIVERSAL PROTOCOL / SAFETY CHECKLIST Procedure to be Performed: vasectomy Sign In: A Moment of CARE was completed. Personnel directly involved with the procedure wore the appropriate PPE (Personal Protective Equipment). Patient/Surrogate Stated/Verified: PATIENT VERIFIED(optional for EMERGENT procedures): Patient name, Date of , Relevant allergies, and The intended procedure Time Out Communication: Intended patient and procedure match the source documents. Consent documented and matches the intended procedure. Sign Out: SIGN OUT (optional for EMERGENT procedures): All specimen containers correctly labeled. Shlomo Haas MD HPI: 37 year old male reports for vasectomy. He again confirms he desires permanent sterilization and has no desire to father children in the future. Operation: Vasectomy Anatomic Site: Vas Deferens Approach: Percutaneous Device: None Qualifier: None PMHx/PSHx: see above, otherwise unchanged Rx: No scheduled NSAIDs or blood thinner for past 5 days. ROS: No new or inguinal complaints Labs: None Imaging: None PE: General: Well masculinized, well nourished male Psych: euthymic, NAD Neuro: A&Ox3 exam: see below. Procedure: Vasectomy Patient s identity was confirmed, written informed consent was obtained, and the time out performedbefore the procedure was initiated The patient was placed in a supine position and the genitalia were prepped and draped in a sterile manner. Examination revealed no scrotal lesions, descended testicles bilaterally without masses and readily palpable vasa deferens. The right scrotal skin and cord structures was anesthetized with 5 cc of 2% lidocaine without epinephrine. A No-scapel technique was used to isolated and remove a small portion of the vas deferens. The vasal ends were secured with clips and hemostasis was ensured. The skin edges were closed with anabsorbable suture. The procedure was repeated on the patient s left side. The patient tolerated the procedure well. Postoperative care, limitations, and expectations were reviewed with the patient. He was again instructed to use an alternate form of control until he is notified that his postprocedure semen analysis reveals no sperm. Imp: S/p vasectomy P: 1) Semen Analysis in 3 months 2) post-procedure instructions given to pt with verbalization of understanding. Shlomo Haas MD documented in this encounterSelect Medical [facility]03-08-2023 Miscellaneous Notes* Telephone Encounter - Leonie Altamirano MA - 09/29/2022 5:03 PM EST Left message on VM with all information. (Ok per lifetime consent). Leonie Altamirano MA * Telephone Encounter - Leonie Altamirano MA - 09/29/2022 5:02 PM EST ----- Message from Tc Aly APRN.KEY sent at 09/29/2022 4:19 PM EST ----- Normal labs besides mild elevation of cholesterol, recommend low fat diet, increase activity. Tc C Trill, PSYCHOLOGIST MILITARY PERSONNEL.MANAGER OF EMPLOYEE RELATIONS documented in this encounterSelect Medical Ohiohealth [facility]02-27-2023 Miscellaneous Notes* Addendum Note - Tc Aly APRN.CNP - 09/20/2022 1:12 PM ESTAddended by: TC ALY on: 09/20/2022 01:12 PM Modules accepted: Orders * Telephone Encounter - Tc Aly APRN.CNP - 09/20/2022 1:11 PM EST I just tried sending in a different suppository for patient. Tc Aly APRN.KEY * Telephone Encounter - Leonie Altamirano MA - 09/20/2022 10:44 AM EST Prior authorization done for hydrocortisone acetate 25mg suppositories was denied . Please advise. Rosales code through cover my meds was [id number]. Leonie Altamirano MA documented in this encounterSelect Medical [facility]02-24-2023 History of Present illness Narrative* Tc Aly APRN.CNP - 09/17/2022 10:12 AM EST This note was created using Hövdingriter. Subjective Elaina Adan is a 37 year old male here today for rectal bleeding. I reviewed past medical, surgical, social, and family histories today and updated chart. Allergies, chronic medications, and supplements were also reviewed. Blood in stool - bright red Started 2 weeks ago - was just a little bit of blood at first Its getting worse Not with every BM but definitely in the morning Recently blood more than once a day Bright red with wiping Today toilet bowl looked red Denies straining/constipation. Slow pooper on his phone on the toilet Sometimes has outer rectal pain Occasionally has pain in the lower abdomen - weird dull pain, like everything went numb there Still gets pain in his penis/urethra - did some work up for this in the past and it was okay Eating and drinking well More coffee than he should probably - about 3 pints a day Diet - occasional fast food, once a month or so Varied - sometimes kids foods - PB and J, chicken nuggets Does eat vegetables and fruits Water intake - not a lot, 8-16 oz per day Drinks lots of milk No family history of colon cancer, IBD PAST MEDICAL HISTORY Diagnosis Date Abdominal pain Alopecia Social phobia PAST SURGICAL HISTORY Procedure Laterality Date PAST SURGICAL HISTORY OF 05/2014 wisdom teeth extraction PAST SURGICAL HISTORY OF at age 13 adenoid ALLERGIES Patient has no known allergies. MEDICATIONS No prescriptions on file. FAMILY HISTORY Problem Relation Age of Onset other (anxiety) Mother other (thyroid cancer) Mother other (depression) Sister Social History Tobacco Use Smoking status: Former Smokeless tobacco: Never Tobacco comments: quit in 2011 Vaping Use Vaping Use: Never used Substance Use Topics Alcohol use: No Drug use: No Review of Systems Constitutional: Positive for fatigue. Negative for appetite change, chills, fever and unexpected weight change. Has small children at home, doesn't sleep well HENT: Negative for congestion, ear pain, rhinorrhea and sore throat. Eyes: Negative for pain, discharge, itching and visual disturbance. Respiratory: Negative for cough, shortness of breath and wheezing. Cardiovascular: Negative for chest pain, palpitations and leg swelling. Gastrointestinal: Positive for abdominal pain, anal bleeding, blood in stool and rectal pain. Negative for constipation, diarrhea, nausea and vomiting. Genitourinary: Negative for difficulty urinating. Musculoskeletal: Negative for arthralgias. Skin: Negative for rash. Neurological: Negative for dizziness, tremors, weakness and headaches. Psychiatric/Behavioral: Positive for sleep disturbance. Negative for dysphoric mood. The patient isnot nervous/anxious. Objective BP 104/58 Pulse 78 Temp 36.4 C (97.6 F) Ht 182.9 cm (6') Wt 81.6 kg (180 lb) SpO2 98% BMI 24.41 kg/m Physical Exam Constitutional: Appearance: Normal appearance. He is not toxic-appearing. HENT: Mouth/Throat: Lips: Gaffney. Mouth: Mucous membranes are moist. Pharynx: Oropharynx is clear. Eyes: General: No scleral icterus. Cardiovascular: Rate and Rhythm: Normal rate and regular rhythm. Heart sounds: Normal heart sounds. No murmur heard. Pulmonary: Effort: Pulmonary effort is normal. Breath sounds: Normal breath sounds. No wheezing or rales. Abdominal: General: Bowel sounds are normal. There is no distension or abdominal bruit. Palpations: Abdomen is soft. There is no hepatomegaly, splenomegaly or mass. Tenderness: There is no abdominal tenderness. There is no right CVA tenderness or left CVA tenderness. Genitourinary: Comments: Residual hemorrhoidal skin tags Musculoskeletal: Right lower leg: No edema. Left lower leg: No edema. Skin: General: Skin is warm and dry. Findings: No bruising or rash. Neurological: General: No focal deficit present. Mental Status: He is alert and oriented to person, place, and time. Sensory: Sensation is intact. Motor: Motor function is intact. Coordination: Coordination is intact. Psychiatric: Attention and Perception: Attention and perception normal. Mood and Affect: Mood and affect normal. Speech: Speech normal. Behavior: Behavior normal. Behavior is cooperative. Thought Content: Thought content normal. ASSESSMENT/PLAN: 1. Rectal bleeding - ICD9: 569.3, ICD10: K62.5 (primary diagnosis) Treat for hemorrhoids Increase fiber and water Anusol supp BID If symptoms persist recommend GI evaluation - CONSULT TO GASTROENTEROLOGY - CBC - COMP METABOLIC PANEL 2. Rectal pain - ICD9: 569.42, ICD10: K62.89 - CONSULT TO GASTROENTEROLOGY - CBC - COMP METABOLIC PANEL 3. Lower abdominal pain - ICD9: 789.09, ICD10: R10.30 - CONSULT TO GASTROENTEROLOGY - CBC - COMP METABOLIC PANEL 4. Depression screening - ICD9: V79.0, ICD10: Z13.31 - DEPRESSION SCREENING/ASSESSMENT 5. Special screening examination for viral disease - ICD9: V73.99, ICD10: Z11.59 - HEP C AB IA W/CONF SCRN 6. Screening for HIV (human immunodeficiency virus) - ICD9: V73.89, ICD10: Z11.4 - HIV 1 2 COMBO(AG/AB),WITH REFLEX TO DIFFERENTIATION 7. Screening for diabetes mellitus - ICD9: V77.1, ICD10: Z13.1 - HGB A1C 8. Screening for prostate cancer - ICD9: V76.44, ICD10: Z12.5 - PSA/PROSTSPECAG SCRN 9. Screening for lipid disorders - ICD9: V77.91, ICD10: Z13.220 - LIPID PANEL BASIC 10. Thyroid disorder screening - ICD9: V77.0, ICD10: Z13.29 - TSH BLD 11. Residual hemorrhoidal skin tags - ICD9: 455.9, ICD10: K64.4 Tc Aly APRN.KEY [facility] Miscellaneous Notes* Telephone Encounter - Rosemarie Summers LPN - 08/24/2022 1:47 PM EST Called patient. Verified name and date of . Patient reports that he wants to get vasectomy scheduled but has not called to schedule. Informed procedure will not be scheduled unless he schedules it and they can let him know of financials. Provided appointment to schedule and transferred. Rosemarie Summers LPN * Telephone Encounter - Estefany Eric RN - 08/24/2022 12:04 PM EST Pt called wanting to know status of pre authorization for insurance for pending vasectomy, had consultation in May. Please update patient and advise.Estefany Eric RN documented in [facility]22 NoteHNO ID: [id number] Author: Elaina Strickland PA-C Service: ? Author Type: Physician Senior Oracle Applications Developer Type: Progress Notes Filed: 06/15/2022 1:48 PM Note Text: Elaina Adan June 15, 2022 Referred by: CC: Desires permanent sterilization HPI: 36 year old male states he desire permanent surgical sterilization. Reports fathering 3 children and expressly states he does not desire to father children in the future. Genitourinary history: Hx undescended testis: No Hx stone disease: No Hx UTI/prostatitis/epididimitis/STI: No Sexual frequency/libido: No Urinary sx: No Hematuria: No FAMILY HISTORY Problem Relation Age of Onset other (anxiety) Mother other (thyroid cancer) Mother other (depression) Sister PAST MEDICAL HISTORY Diagnosis Date Abdominal pain Alopecia Social phobia PAST SURGICAL HISTORY Procedure Laterality Date PAST SURGICAL HISTORY OF 05/2014 wisdom teeth extraction PAST SURGICAL HISTORY OF at age 13 adenoid No current outpatient medications on file. No current facility-administered medications for this visit. Allergies: Patient has no known allergies. Social History Tobacco Use Smoking status: Former Smokeless tobacco: Never Tobacco comments: quit in 2011 Vaping Use Vaping Use: Never used Substance Use Topics Alcohol use: No Drug use: No Occupation/exposures: None ROS: ENMT: No changes in hearing or vision, no nose bleeds or other nasal problems SKIN: Negative for lesions, rash, and itching. ENDOCRINE: Negative for cold or heat intolerance, polyuria, polydipsia and goiter. RESPIRATORY: Negative for cough, wheezing and shortness of breath CARDIOVASCULAR: Negative for chest pain, leg swelling and palpitations GI: Negative for abdominal discomfort, blood in stools or black stools : Negative for dysuria, frequency and incontinence MUSCULOSKELETAL: Negative for joint pain or swelling, back pain, and muscle pain. PSYCH: Negative for sleep disturbance, mood disorder and recent psychosocial stressors. NEURO: Negative All other systems reviewed and are negative. Physical Exam: BP 134/70 (BP Site: Right Arm, BP Position: Sitting, BP Cuff Size: Large Adult) Pulse 108 Temp 36.4 ?C (97.6 ?F) (Temporal) Resp 16 Ht 182.9 cm (6') Wt 80.3 kg (177 lb) SpO2 98% BMI 24.01 kg/m? General: Well appearing, alert, in no acute distress, well-hydrated, well nourished. ENMT: Negative Neuro: Awake, alert and oriented x 3 Inguinal: No lympnadenopathy and No hernia Gastrointestinal:Non-tender, Soft : Testes: descended, without tenderness, and no masses bilaterally. L Normal ccs - R Normal ccs Phallus; normal, circumcised - , no lesions, Meatus: Orthotopic, patent, no discharge and Scrotum: no lesions, normal rugae Varicocele: No Epididymides: L Normal R Normal Vas deferens: Bilaterally Normal Musculoskeletal: normal, supple and thyroid normal size, non-tender, without nodularity Assessment: 36 year old male desires vasectomy. The patient attests that he watched and understood the AUA Vasectomy video and read and understood the No-Scalpel Vasectomy pamphlet. He was instructed to stop all NSAIDs, aspirin and other blood thinners 5 days prior to the vasectomy. He was instructed to shave entire front of scrotum to the base of the penis the morning of the vasectomy. Postprocedure care, expectations, and limitations were discussed. He voiced understanding of these instructions and stated his questions were answered. Plan: 1) Proceed to vasectomy scheduling I personally counseled this patient about the following and he voiced understanding: a) Vasectomy is a permanent and irreversible form of sterilization b) 1:1,000 rate of recanalization which can results in the return of sperm into the ejaculate after vasectomy c) Patient must use alternative form of control until he is notified that his postprocedure semen analysis contained no sperm. Consultation requested by Self for an opinion regarding vasectomy and my final recommendations will be communicated back to the requesting physician by way of shared Medical record or letter via US mail. Visit duration 30 minutes with approximately 50% of time in counseling ROBYN Dia, [place], [place] note* Diagnosis Hemorrhoids, unspecified hemorrhoid type- Primary documented in this encounter [facility] note* Diagnosis Rectal bleeding- Primary Hemorrhage of rectum and anus Rectal pain Anal or rectal pain Lower abdominal pain Abdominal pain, other specified site Depression screening Screening for depression Special screening examination for viral disease Special screening examination for unspecified viral disease Screening for HIV (human immunodeficiency virus) Special screening examination for other specified viral diseases Screening for diabetes mellitus Screening for prostate cancer Special screening for malignant neoplasm of prostate Screening for lipid disorders Thyroid disorder screening Screening for thyroid disorder Residual hemorrhoidal skin tags documented in this encounter [facility] note* Diagnosis Encounter for sterilization- Primary [facility]ilization [facility] Diagnosis Rectal bleeding- Primary Hemorrhage of rectum and anus Periumbilical abdominal pain Abdominal pain, periumbilic [facility]* Diagnosis Rectal bleeding- Primary Hemorrhage of rectum and anus documented [facility] Diagnosis Umbilical hernia without obstruction and without gangrene- Primary Rectal bleeding Hemorrhage of rectum and anus Hemorrhoids, unspecified hemorrhoid type Lower abdominal pain Abdominal pain, other specified site documented [facility] this [facility]* Diagnosis Rectal bleeding- Primary Hemorrhage of rectum and anus Generalized abdominal pain Abdominal pain, generalized Hemorrhoids, unspecified hemorrhoid type Screening for lipid disorders documented in this encounter [facility] for referral (narrative)* Outpatient Procedure (Routine) - Pending Review Specialty Diagnoses / Procedures Referred By Contac t Referred To Contact [facility] Diagnoses Rectal bleeding Procedures COLONOSCOPY DIAGNOSTIC COLONOSCOPY FLX DX W/COLLJ SPEC WHEN PFRMD Genevieve Segovia PA-C [address] [place] [address] [facility] [address] [place] [address] Referral ID Status Reason Start Date Expiration Date Visits Requested Visits Authorized [id number] Pending Review Auto-Generat ed Referral 11/25/2022 11/26/2023 1 1 * Diagnostic Procedure Only (Routine) - Pending Review Specialty Diagnoses / Procedures Referred By Contac t Referred To Contact XR IMAGING Diagnoses Periumbilical abdominal pain Procedures XR ABDOMEN 2V ROUTINE SUPINE W UPRIGHT/DECUB/CTL RADIOLOGIC EXAM ABDOMEN 2 VIEWS Genevieve Segovia PA-C [address] [place] [address] Xr Imaging Referral ID Status Reason Start Date Expiration Date Visits Requested Visits Authorized [id number] Pending Review Auto-Generat ed Referral 11/25/2022 12/25/2023 1 1 [facility] for referral (narrative)No reason for referral information availableWThe [facility] Work Phone: Summary Purpose Family History No Family History Records FoundNo Family History Records FoundNo Family History Records FoundNo Family History Records Found Advance Directives No Advanced Directives Records FoundNo Advanced Directives Records FoundNo Advanced Directives Records FoundNo Advanced Directives Records Found Reason for Referral Specialty Diagnoses / Procedures Referred By Contact Referred To Contact Gastroenterology / [facility] Department Diagnoses Rectal bleeding Rectal pain Lower abdominal pain Procedures CONSULT TO GASTROENTEROLOGY OFFICE/OUTPATIENT [facility] 60-74 MINUTES Tc Aly APRN.MANAGER OF EMPLOYEE RELATIONS [address] [place] [address] Hector Perera MD 1 [facility], [address] [place] [address] Referral ID Status Reason Start Date Expiration Date Visits Requested Visits Authorized [id number] Authorized PCP Requested Referral 09/17/2022 09/17/2023 1 1 Specialty Diagnoses / Procedures Referred By Contac t Referred To Contact Diagnoses Rectal bleeding Procedures CONSULT TO GASTROENTEROLOGY OFFICE/OUTPATIENT [facility] 60-74 MINUTES Tc Aly APRN.MANAGER OF EMPLOYEE RELATIONS [address] [place] [address] Friend, Jignesh Dia, DO [address] [facility] [address] [address] Referral ID Status Reason Start Date Expiration Date Visits Requested Visits Authorized [id number] Authorized PCP Requested Referral 12/23/2022 12/23/2023 1 1 Specialty Diagnoses / Procedures Referred By Contac t Referred To Contact Diagnoses Rectal bleeding Hemorrhoids, unspecified hemorrhoid type Rectal pain Lower abdominal pain Procedures CONSULT TO GASTROENTEROLOGY OFFICE/OUTPATIENT [facility] 60-74 MINUTES Joyce Anton PSYCHOLOGIST MILITARY PERSONNEL.MANAGER OF EMPLOYEE RELATIONS [address] [place] [address] [facility] [address] [place] [id number] Referral ID Status Reason Start Date Expiration Date Visits Requested Visits Authorized [id number] Authorized PCP Requested Referral 04/28/2023 04/27/2024 1 1 Specialty Diagnoses / Procedures Referred By Contac t Referred To Contact Diagnoses Rectal bleeding Hemorrhoids, unspecified hemorrhoid type Procedures CONSULT TO GASTROENTEROLOGY OFFICE/OUTPATIENT [facility] 60 MINUTES Joyce Anton APRN.MANAGER OF EMPLOYEE RELATIONS [address] [place] [address] Friend, Jignesh Dia, DO [address] [place] [id number] Referral ID Status Reason Start Date Expiration Date Visits Requested Visits Authorized [id number] Authorized PCP Requested Referral 4 07/24/2025 1 1 Chief Complaint and Reason for Visit Chief Complaint Admit Date Abdominal complaints September 12, 2024 10:28am LOWER ABD PAIN, NAUSEA, VOMITING September 222024 8:29am Reason for Visit Admit Date Lower abdominal pain September 12, 2024 10:28am Nausea & vomiting September 12, 2024 10:28am Rectal bleeding September 12, 2024 10:28am Abdominal symptoms September 12, 2024 10:28am Additional Source Comments (unrecognized sect ion and content) No Status Records FoundNo Status Records FoundNo Status Records FoundNo Status Records Found INFORMATION SOURCE (unrecogn ized section and content) DATE CREATED AUTHOR 08/07/2019 [facility] DATE CREATED AUTHOR AUTHOR'S ORGANIZ ATION 12/31/2022 [facility] DATE CREATED AUTHOR AUTHOR'S ORGANIZ ATION 08/24/2024 [facility] DATE CREATED AUTHOR AUTHOR'S ORGANIZ ATION 12/19/2024 [facility] Source Comments (unrecognize d section and content) In the event this informatio n is protected by the Federal Confidentiality of Alcohol and Drug Abuse Patient Records regulations: The Federal rules restrict any use of the information to criminally investigate or prosecute any alcohol or drug abuse patient.[facility] the event this information is protected by the Federal Confidentiality of Alcohol and Drug Abuse Patient Records regulations: The Federal rules restrict any use of the information to criminally investigate or prosecute any alcohol or drug abuse patient.[facility] the event this information is protected by the Federal Confidentiality of Alcohol and Drug Abuse Patient Records regulations: The Federal rules restrict any use of the information to criminally investigate or prosecute any alcohol or drug abuse patient.[facility] Dublin[facility] the event this information is protected by the Federal Confidentiality of Alcohol and Drug Abuse Patient Records regulations: The Federal rules restrict any use of the information to criminally investigate or prosecute any alcohol or drug abuse patient.[facility] Dublin[facility] the event this information is protected by the Federal Confidentiality of Alcohol and Drug Abuse Patient Records regulations: The Federal rules restrict any use of the information to criminally investigate or prosecute any alcohol or drug abuse patient.[facility] Dublin[facility] the event this information is protected by the Federal Confidentiality of Alcohol and Drug Abuse Patient Records regulations: The Federal rules restrict any use of the information to criminally investigate or prosecute any alcohol or drug abuse patient.[facility] Dublin[facility] the event this information is protected by the Federal Confidentiality of Alcohol and Drug Abuse Patient Records regulations: The Federal rules restrict any use of the information to criminally investigate or prosecute any alcohol or drug abuse patient.[facility] Dublin[facility] the event this information is protected by the Federal Confidentiality of Alcohol and Drug Abuse Patient Records regulations: The Federal rules restrict any use of the information to criminally investigate or prosecute any alcohol or drug abuse patient.[facility] Dublin[facility] the event this information is protected by the Federal Confidentiality of Alcohol and Drug Abuse Patient Records regulations: The Federal rules restrict any use of the information to criminally investigate or prosecute any alcohol or drug abuse patient.[facility] Dublin[facility] the event this information is protected by the Federal Confidentiality of Alcohol and Drug Abuse Patient Records regulations: The Federal rules restrict any use of the information to criminally investigate or prosecute any alcohol or drug abuse patient.[facility] Dublin[facility] the event this information is protected by the Federal Confidentiality of Alcohol and Drug Abuse Patient Records regulations: The Federal rules restrict any use of the information to criminally investigate or prosecute any alcohol or drug abuse patient.[facility] Dublin[facility] the event this information is protected by the Federal Confidentiality of Alcohol and Drug Abuse Patient Records regulations: The Federal rules restrict any use of the information to criminally investigate or prosecute any alcohol or drug abuse patient.[facility] Reason for Visit (unrecogniz ed section and content) 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 Gotten worse. Bright red . Reason Comments Results Reason Comments Vasectomy-1 Reason Comments Follow Up Reason Comments Referral Request Friend is requesting referral for Elaina Reason Comments hernia Noticed about a juan jose h ago Reason Comments Missed Appointment 1st no show in 365 d ays (1st letter sent) Reason Comments Rectal Problem Still having rectal bleeding he has been trying Dr. Hampton but he is not accepting new patients. He needs a new referral to dr. Hampton again to try and get in with him. His rectal bleeding is on and off. Some days is dark red and some is light. Reason Comments faxed referral Faxed referral to Dr Vicky Hampton Care Teams (unrecognized sec tion and content) Prop Attendant Relationship Specialty Start Date End Date Tc Aly, PSYCHOLOGIST MILITARY PERSONNEL.MANAGER OF EMPLOYEE RELATIONS [address] [place] [address] PCP - General Family Medicine 12/15/16 Genevieve Barcenas (Historical) [address] [place] [address] Referring Family Medicine 05/20/22 Prop Attendant Relationship Specialty Start Date End Date Tc Aly PSYCHOLOGIST MILITARY PERSONNEL.MANAGER OF EMPLOYEE RELATIONS [address] [place] [address] PCP - General Family Medicine 12/15/16 Genevieve Barcenas (Historical) [address] [place] [address] Referring Family Medicine 05/20/22 Prop Attendant Relationship Specialty Start Date End Date Tc Aly, PSYCHOLOGIST MILITARY PERSONNEL.MANAGER OF EMPLOYEE RELATIONS [address] [place] [address] PCP - General Family Medicine 12/15/16 Genevieve Barcenas (Historical) [address] [place] [address] Referring Family Medicine 05/20/22 Prop Attendant Relationship Specialty Start Date End Date Tc Aly, PSYCHOLOGIST MILITARY PERSONNEL.MANAGER OF EMPLOYEE RELATIONS [address] [place] [address] PCP - General Family Medicine 12/15/16 Genevieve Barcenas (Historical) [address] [place] [address] Referring Family Medicine 05/20/22 Prop Attendant Relationship Specialty Start Date End Date Tc Aly, PSYCHOLOGIST MILITARY PERSONNEL.MANAGER OF EMPLOYEE RELATIONS [address] [place] [address] PCP - General Family Medicine 12/15/16 Genevieve Barcenas (Historical) [address] [place] [address] Referring Family Medicine 05/20/22 Prop Attendant Relationship Specialty Start Date End Date Tc Aly PSYCHOLOGIST MILITARY PERSONNEL.MANAGER OF EMPLOYEE RELATIONS [address] [place] [address] PCP - General Family Medicine 12/15/16 Genevieve Barcenas (Historical) [address] [place] [address] Referring Family Medicine 05/20/22 Prop Attendant Relationship Specialty Start Date End Date Tc Aly PSYCHOLOGIST MILITARY PERSONNEL.MANAGER OF EMPLOYEE RELATIONS [address] [place] [address] PCP - General Family Medicine 12/15/16 Genevieve Barcenas (Historical) [address] [place] [address] Referring Family Medicine 05/20/22 Prop Attendant Relationship Specialty Start Date End Date Tc Aly PSYCHOLOGIST MILITARY PERSONNEL.MANAGER OF EMPLOYEE RELATIONS [address] [place] [address] PCP - General Family Medicine 12/15/16 Genevieve Barcenas (Historical) [address] [place] [address] Referring Family Medicine 05/20/22 Prop Attendant Relationship Specialty Start Date End Date Tc Aly PSYCHOLOGIST MILITARY PERSONNEL.MANAGER OF EMPLOYEE RELATIONS [address] [place] [address] PCP - General Family Medicine 12/15/16 Genevieve Barcenas (Historical) [address] [place] [address] Referring Family Medicine 05/20/22 Prop Attendant Relationship Specialty Start Date End Date Tc Aly PSYCHOLOGIST MILITARY PERSONNEL.MANAGER OF EMPLOYEE RELATIONS [address] [place] [address] PCP - General Family Medicine 12/15/16 Genevieve Barcenas (Historical) [address] [place] [address] Referring Family Medicine 05/20/22 Prop Attendant Relationship Specialty Start Date End Date Tc Aly PSYCHOLOGIST MILITARY PERSONNEL.MANAGER OF EMPLOYEE RELATIONS [address] [place] [address] PCP - General Family Medicine 12/15/16 Genevieve Barcenas (Historical) [address] [place] [address] Referring Family Medicine 05/20/22 Team Status: Active Member Role Status Dates Tc Aly NP, CALCULATING MACHINE MECHANIC-C Primary Care Provider Active Team Status: Inactive Member Role Status Dates No Primary Care Physician Primary Care Provider Active Start: September 12, 2024 End: September 12, 2024 No Primary Care Physician Referring Provider Active Start: September 12, 2024 End: September 12, 2024 Bess Leigh CALCULATING MACHINE MECHANIC-C Attending Provider Active Start: September 12, 2024 End: September 12, 2024 Team Status: Inactive Member Role Status Dates Tc Aly NP, CALCULATING MACHINE MECHANIC-C Primary Care Provider Active Start: September 12, 2024 End: September 12, 2024 Bess Leigh , CALCULATING MACHINE MECHANIC-C Attending Provider Active Start: September 12, 2024 End: September 12, 2024 Bess Leigh , CALCULATING MACHINE MECHANIC-C Referring Provider Active Start: September 12, 2024 End: September 12, 2024 Team Status: Inactive Member Role Status Dates Tc Aly NP, CALCULATING MACHINE MECHANIC-C Primary Care Provider Active Start: October 03, 2024 End: October 03, 2024 Bess Leigh , CALCULATING MACHINE MECHANIC-C Attending Provider Active Start: October 03, 2024 End: October 03, 2024 Bess Leigh , CALCULATING MACHINE MECHANIC-C Referring Provider Active Start: October 03, 2024 End: October 03, 2024 Goals (unrecognized section and content) Goals may be documented in a n alternate section FOR RECORDS PERTAINING TO PATIENTS WHO ARE OR HAVE BEEN ENROLLED IN A CHEMICAL DEPENDENCY/SUBSTANCEABUSE PROGRAM, SOME INFORMATION MAY BE OMITTED. This clinical summary was aggregated from multiple sources. Caution should be exercised in using it in the provision of clinical care. This summary normalizes information from multiple sources, and as a consequence, information in this document may materially change the coding, format and clinical context of patient data. In addition, data may be omitted in some cases. CLINICAL DECISIONS SHOULD BE BASED ON THE PRIMARY CLINICAL RECORDS. [employer] [facility]. provides no warranty or guarantee of the accuracy or completeness of information in this document.
[2024-12-31 13:03] LABS: Hepatitis B Surface Antigen Nonreactive (Nonreactive); Hepatitis C Antibody Nonreactive (Nonreactive)
[2024-12-31 13:14] LABS: Cholesterol 149 mg/dL (<=200); High Density Lipoprotein 46 mg/dL; Low Density Lipoprotein Calc. 85 mg/dL; Triglycerides 89 mg/dL; Very Low Density Lipoprotein 18 mg/dL (5-40); cholesterol:hdl ratio screen 3.22
[2025-01-01 05:07] LABS: Hepatitis A AB, Total Negative (Negative); Hepatitis B Core Ab Total Negative (Negative)
== END | disposition home or self-care (01) ==
LOC: LAB 09:08
PROVIDERS: PCP Nurse Practitioner Family; Referring Provider Nurse Practitioner Acute Care; Visit Provider Nurse Practitioner Acute Care
DX: K76.0 Fatty (change of) liver, not elsewhere classified (principal)
CPT/HCPCS: 36415; 80061; 86704; 86706; 86708; 86803; 87340

== ENCOUNTER → 2025-01-28 | Outpatient (CLI) | payer MEDICARE, MEDICAID, SELFPAY | END | disposition home or self-care (01) | LOC: NM 12:59 | PROVIDERS: PCP Nurse Practitioner Family; Referring Provider Nurse Practitioner Acute Care; Visit Provider Nurse Practitioner Acute Care | DX: R10.11 Right upper quadrant pain (principal) | CPT/HCPCS: 78227; A9537; J2805 ==

== ENCOUNTER 2025-04-18 10:20 | Day surgery (SDC) | payer MEDICARE, MEDICAID, SELFPAY ==
[2025-04-18] VITALS (11 sets, daily range): BP systolic 96–131; BP diastolic 50–75; PULSE 69–85; RESP 14–22; TEMP 36.1–36.9; O2SAT 95–100; BMI 25.7
[2025-04-18] MEDS: Lactated Ringers 1,000 ML 15 ML IV ×2 (10:58→15:11)
--- NOTE | 2025-04-18 11:13 | PRE.ANES_ITS ---
ASA Classification* ASA Classification ASA Classification: 2 Assessment & Plan Anesthesia* Anesthesia Assessment Anesthesia Assessment: Discussed sedation and/or anesthesia options, risks, benefits, and alternatives with patient/parents/legal guardian/POA. Questions invited. The patient/parents/legal guardian/POA seems to understand and agrees to proceed with anesthesia plan. Reviewed the physical assessment, medical history, allergy history and patient home medications list prior to surgery/procedure/anesthetic and documented any changes. Performed airway and anesthesia risk assessments. Anesthesia Type Anesthesia Type: General History Source History Obtained from:: Patient and Chart Anesthesia Focused Assessment* Temperature: 97.9 F Pulse Rate: 69 Blood Pressure: 109/67 Respiratory Rate: 14 Pulse Ox: 98 Oxygen Delivery Method: Room Air Airway Assessment Mouth opens: >3 cm Mallampati Score: III Neck Range of motion (ROM): Limited ROM (Slight Decrease) Labs Anesthesia Preop lab: CBC WBC, (4.4-11.0) 10.4 K/mm3 09/12/24, 11: RBC, (4.6-6.2) 5.21 M/mm3 09/12/24, : Hgb, (13.0-16.5) 14.6 g/dL 09/12/24, : Hct, (40-54) 44.1 % 09/12/24, : Plt Count, (150-450) 233 K/mm3 09/12/24, 11: CHEMISTRY Potassium, (3.5-5.1) 3.8 mmol/L 09/12/24, : Sodium, (136-145) 141 mmol/L 09/12/24, : BUN, (7-18) 13 mg/dL 09/12/24, : Creatinine, (0.70-1.30) 1.00 mg/dL 09/12/24, : Glucose, (74-106) 85 mg/dL 09/12/24, : TSH, (0.358-3.74) 2.53 uIU/mL 08/13/14, 15:46 COAG Pre-Assessment Diagnosis/Proposed Procedure Planned Operative Procedure(s): (N/A) THD Hemorrhoidectomy Anesthesia History Anesthesia History - drapery and upholstery estimator: Anesthesia History - drapery and upholstery estimator Hx Hospitalization No 04/08/25 11:07 Any Problems With Anesthesia No 04/08/25 11:07 Cholinesterase deficiency No 04/08/25 11:07 You/Your Family Experience No 04/08/25 11:07 fever (hyperthermia) with Relationship Recent Exposure to Contagious No 04/18/25 10:49 Disease Does patient have nerve No 04/08/25 11:07 stimulator Patient instructed to have device shut off --Does patient have Pacemaker No 04/18/25 10:49 or ICD? When Was Last Pacemaker Check QUESTION #4 FULL TEXT: You/Your Family Experience fever (hyperthermia) with Anesthesia Last Oral Intake Last Oral intake: Last Oral Intake NPO since 21:00 04/18/25 10:49 Meds taken in AM with sips of water? Meds patient instructed to take am of surgery PONV PONV - drapery and upholstery estimator: PONV - drapery and upholstery estimator Female No 04/08/25 11:07 HX of Motion Sickness Yes 04/08/25 11:07 HX of N/V After Surgery Yes 04/08/25 11:07 Non-Smoker No 04/08/25 11:07 Duration of Surgery greater No 04/08/25 11:07 than 60 minutes Number of Risk Factors 2 04/08/25 11:07 PONV Score Moderate Risk 04/08/25 11:07 Height & Weight Height & Weight: Anesthesia: Height & Weight Height 6 ft 04/18/25 10:49 Weight: 85.9 kg 04/18/25 10:49 Body Mass Index (BMI) 25.7 04/18/25 10:49 Respiratory Assessment Respiratory Assessment - drapery and upholstery estimator: Respiratory Tract Infection Hx - drapery and upholstery estimator Hx Respiratory Tract Infection No 04/08/25 11:07 STOP Sleep Apnea STOP Sleep Apnea - drapery and upholstery estimator: STOP Sleep Apnea - drapery and upholstery estimator Hx Hypertension No 04/08/25 11:07 Hx Sleep Apnea No 04/08/25 11:07 CPAP BIPAP Do you snore loudly (louder No 04/08/25 11:07 than talking or can be heard Do you often feel tired/ No 04/08/25 11:07 fatigued/ sleepy during daytime? Has anyone observed you stop No 04/08/25 11:07 breathing during sleep? STOP Results Negative 04/08/25 11:07 QUESTION #5 FULL TEXT : Do you snore loudly (louder than talking or can be heard through closed doors)? Tobacco Use History Tobacco Use History - drapery and upholstery estimator: Tobacco Use History - drapery and upholstery estimator Tobacco Use Smoking Status Current every day smoker 04/08/25 11:07 Hx Tobacco Use Yes: CINDI DAILY 04/08/25 11:07 Years Smoking Packs Smoked per Day Smoking Cessation Date was within the last 15 years Hx Smoking Cessation Date Hx Smoking Cessation Counseling Any additional information?: Yes Smoking Status: Current every day smoker (Patient smoked marijuana today.) Hematologic Medial History Hematologic Hx - drapery and upholstery estimator: Hematologic Medical Hx - machine setter and repairer Hx of Blood Transfusion No 04/08/25 11:07 Hx of Transfusion in last 3 No 04/08/25 11:07 Months Date of Last Transfusion (if within last 3 months) Ever experience any problems No 04/08/25 11:07 with transfusion(s)? Specify any problems Hx of Preganancy in last 3 N/A 04/08/25 11:07 Months Nurse Filling Out Transfusion MGRIFFITH 04/08/25 11:07 & Questions: Date: 04/08/25 04/08/25 11:07 Time: 11:09 04/08/25 11:07 Patient unable to answer at this time (ie. confused, unrespo /Reproduction History /Reproductive History - drapery and upholstery estimator: /Reproductive Hx- drapery and upholstery estimator Hx Now No 04/08/25 11:07 Gestational Age (in weeks): EDC: Hx Hx Para Hx Section SAB No 04/08/25 11:07 Active Medications Active Medications: Current Medications Generic Name Dose Route Start Last Admin Trade Name Freq PRN Reason Stop Dose Admin Cefazolin Sodium 2 gm/ Sodium 110 mls @ 200 mls/hr 04/18/25 12:00 Chloride IV 04/18/25 12:32 INTRAOP ONE Lactated Ringer's 1,000 mls @ 15 mls/hr 04/18/25 10:30 04/18/25 10:58 IV 15 mls/hr .Q48H FRANK Administration PFSH Medical History Former smoker Smoker Abnormal biliary HIDA scan Wears glasses Depression Anxiety Marijuana use Fatty liver High cholesterol Migraine headache Home Medications ?Medication ?Instructions ?Recorded ?Last Taken ?Type pantoprazole 40 mg tablet,delayed 40 mg PO QDAY #90 ta bs 02/07/25 04/15/25 Rx release Diltiazem 2% / Lidocaine 5% #1 ea 02/15/25 Unknown Rx ointment (compound) (Diltiazem 2%/Lidocaine 5% ointment (compound)) Allergy/AdvReac Type Severity Reaction Status Date / Time No Known Allergies Allergy Verified 04/18/25 10:48 Surgical History History of colonoscopy Enlarged adenoids History of wisdom tooth extraction Social History Smoking Status: Current every day smoker tobacco type: cigarettes alcohol intake: never substance use type: does not use Review of Systems (Anesthesia) ROS Narrative System reviewed and no additional complaints, except as documented.
--- OUTSIDE RECORDS SUMMARY | 2025-04-18 11:20 | XMS RPT_ITS | CCD ---
Author Organization [facility] Care Team Providers Care Energy Efficiency Finance Manager Name Role Phone Trill COMMUNICATIONS BILLING ANALYST.Tc MACKEY Primary Care Provider Genevieve Barcenas (Historical) Unavailable U navailable ELAINA STRICKLAND Attending Unavailable TC ALY Primary Care Unavailable SHLOMO HAAS Attending Unavailable ELAINA STRICKLAND Referring Unavailable TC ALY Primary Care Unavailable Trilisa COMMUNICATIONS BILLING ANALYST.Tc MACKEY Primary Care Provider TC ALY Primary Care Unavailable JOYCE CULLEN Attending Unavailable SELF Referring Unavailable TC ALY Primary Care Unavailable JOYCE CULLEN Referring Unavailable Care Physician, No Primary Primary Care Provider Unavailable Care Physician, No Primary Referring Provider Un available Reese SNAKE CHARMER-CBess Attending Provider Trill SNAKE CHARMER-C, Tc Primary Care Provider Reese SNAKE CHARMER-CBess Referring Provider Trill SNAKE CHARMER-C, Tc Referring Provider Dr. Jignesh Hampotn DO Attending Provider Dr. Jigensh Hampton DO Other Provider Trill SNAKE CHARMER-C, Tc Primary Care Provider Reese SNAKE CHARMER-CBess Attending Provider Reese SNAKE CHARMER-CBess Referring Provider Care Physician, No Primary Referring Provider Un available Trill SNAKE CHARMER-C, Tc Primary Care Provider Reese SNAKE CHARMER-CBess Attending Provider Reese SNAKE CHARMER-CBess Referring Provider Trill SNAKE CHARMER-C, Tc Primary Care Provider Trill SNAKE CHARMER-C, Tc Referring Provider Marsiela CROW, Dr. Jonathan Mckeon Attending Provider Bess Leigh Attending Unavailable Trill SNAKE CHARMER, Tc Primary Care Unavailable Care Physician, No Primary Referring Unava ilable ReeseBess lewis Attending Unavailable Trill SNAKE CHARMER, Tc Primary Care Unavailable Bess Leigh Referring Unavailable ReeseBess Attending Unavailable Reese, Bess Referring Unavailable Trill SNAKE CHARMER, Tc Primary Care Unavailable ReeseBess Attending Unavailable Reese, Bess Referring Unavailable Trill SNAKE CHARMER, Tc Primary Care Unavailable Trill SNAKE CHARMER, Tc Primary Care Unavailable Jonathan Antonio Attending Unavailable Reese, Bess Attending Unavailable Trill SNAKE CHARMER, Tc Primary Care Unavailable Reese, Bess Referring Unavailable Trill SNAKE CHARMER, Tc Referring Unavailable Friend, Jignesh Attending Unavailable Trill SNAKE CHARMER, Tc Primary Care Unavailable Bess Leigh Attending Unavailable Care Physician, No Primary Primary Care Unava ilable Care Physician, No Primary Referring Unava ilable Trill SNAKE CHARMER, Tc Referring Unavailable Friend, Jignesh Consulting Unavailable Friend, Jignesh Attending Unavailable Trill SNAKE CHARMER, Tc Primary Care Unavailable Trill SNAKE CHARMER, Tc Primary Care Unavailable ReeseBess lewis Referring Unavailable Jonathan Antonio Attending Unavailable Trill SNAKE CHARMER, Tc Referring Unavailable ReeseBess Attending Unavailable Trill SNAKE CHARMER, Tc Primary Care Unavailable Medications Current Medications Medication Drug Class(es) Dates Sig (Normalized) Sig (Original) Diltiazem 2% / Lidocaine 5% Ointment (Compound) [Diltiazem 2%/Lidocaine 5% Ointment (Compound)] (Diltiazem 2%/Lidocaine 5% ) ointment (1 source) Start: 02-15-2025 Diltiazem 2% / Lidocaine 5% Ointment (Compound) [Diltiazem 2%/Lidocaine 5% Ointment (Compound)] (Diltiazem 2%/Lidocaine 5% ) ointment Active 0 .Route 1 February 15, 2025 12:00am Apply pea size amount to anus twice daily as needed for hemorrhoids glycerin 144 mg/ml / petrolatum 150 mg/ml / phenylephrine hydrochloride 2.5 mg/ml / pramoxine hydrochloride 10 mg/ml rectal cream (3 sources) Non-Standardized Chemical Allergen, alpha-1 Adrenergic Agonist Start: 07-24-2024 phenyleph-pramoxin i-xribavlw-cuumt petrolatum (PREPARATION H) 0.25-1 % crea Indications: Hemorrhoids, unspecified hemorrhoid type by RECTAL route three times a day as needed. 26 g 1 07/24/2024 Active [place] (Nk) (1 source) Start: 07-26-2020 [place] (Nk) Active July 26, 2020 1:00am pantoprazole 40 mg delayed release oral tablet (11 sources) Proton Pump Inhibitor Start: 12-13-2024 End: 02-07-2025 take 1 tablet by mouth once daily Pantoprazole 40 mg tablet,delayed release (DR/EC) Active 40 mg PO daily 90 February 07, 2025 11:54am Start: 09-12-2024 End: 11-19-2024 take 1 tablet by mouth once daily 30 minutes before breakfast Pantoprazole 40 mg tablet,delayed release (DR/EC) Discontinued 40 mg PO daily 90 September 12, 2024 1:00am November 19, 2024 2:30pm take once daily 30 minutes before breakfast Completed/Discontinued Medications Medication Drug Class(es) Dates Sig [...] Suppository by REC VIRAJ route twice daily. polyethylene glycol 3350 96899 mg powder for oral solution (4 sources) Osmotic Laxative Start: 11-19-2024 End: 12-13-2024 Polyethylene Glycol 3350 (Miralax) 17 gram/dose powder Discontinued 238 g PO .COMPLEX 238 0 November 19, 2024 12:00am December 13, 2024 10:05am 238 grams orally as directed for split dose bowel prep; polyethylene glycol 3350 776071 mg / potassium chloride 2970 mg / sodium bicarbonate 6740 mg / sodium chloride 5860 mg / sodium sulfate 34895 mg powder for oral solution (5 sources) Osmotic Laxative Start: 09-12-2024 End: 12-13-2024 Peg 3350-Electrolytes (Golytely) 236-22.74-6.74 -5.86 gram recon soln Discontinued 240 mL PO Q10M 4000 0 September 12, 2024 1:00am December 13, 2024 10:05am take as directed for split dose bowel prep Problems Active Problems Problem Classification Problem Date Documented Da te Episodic/Chronic Abdominal hernia (1 source) Umbilical hernia; Translations: [Umbilical hernia without obstruction or gangrene] 04-28-2023 Episodic Abdominal pain (20 sources) Lower abdominal pain; Translations: [Lower abdominal [...] and advice on contraception] Onset: 06-15-2022 Episodic Hemorrhoids (20 sources) Hemorrhoids; Translations: [Unspecified hemorrhoids] Onset: 09-17-2022 Episodic Immunizations and screening for infectious disease (2 sources) Viral screening status; Translations: [Encounter for screening for other viral diseases] Episodic Other gastrointestinal disorders (2 sources) Finding of abdomen; Translations: [Other specified symptoms and signs involving the digestive system and abdomen] 09-12-2024 Episodic Other liver diseases (9 sources) Steatosis of liver; Translations: [Fatty (change of) liver, not elsewhere classified] 10-03-2024 Chronic Other liver diseases (1 source) Fatty (change of) liver, not elsewhere classified; Translations: [Fatty (change of) liver, not elsewhere classified] Onset: 01-04-2025 Chronic Other screening for suspected conditions (not mental disorders or infectious disease) (11 sources) Patient encounter status; Translations: [Encounter for screening for diabetes mellitus] Onset: 07-24-2024 Episodic Superficial injury; contusion (5 sources) Corneal abrasion; Translations: [Injury of conjunctiva and corneal abrasion without foreign body, unspecified eye, initial encounter] 07-27-2020 Episodic Past or Other Problems Problem Classification Problem Date Documented Da te Episodic/Chronic Gastrointestinal hemorrhage (18 sources) Rectal hemorrhage; Translations: [Hemorrhage of anus and rectum] Onset: 07-24-2024 Episodic Nausea and vomiting (20 sources) Nausea and vomiting; Translations: [Nausea with vomiting, unspecified] Onset: 10-18-2014 10-18-2014 Episodic Results Test Name Value Interpretation Reference Range Facility Surgery Visit Reporton 04-01 Surgery Visit Report [facility] [address] [place] [address]. [address] [place] [address] OFFICE VISIT Date of Service: 04/01/25 MR#: [id number] Acct: [id number] Name: ELAINA RENE BIANCA Rep #: [id number] : 1985 Provider: Dr. Jonathan hernandez MD Age/Sex: 39/M Location: [facility] Status: Signed Intake Vital Signs 12/13/24 10:08 04/01/25 10:14 Height 6 ft 6 ft Weight: 195 lb 2 oz BMI 26.4 BP 116/74 Blood Pressure Location Rt brachial Position Sitting Respiration 18 Pulse 72 Pulse Source Monitor Temp 98.0 F Temp Source Temporal Pulse Oximetry (%) 99 Oxygen Delivery Method room air Intake Visit Reasons: ABNORMAL HIDA HEMORRHOIDS Chief Complaint: abnormal hida and hemorrhoids Is patient in pain?: No Allergies No Known Allergies Allergy (Verified 04/01/25 10:15) Medications ???Medication ???Instructions ???Recorded ???Confirmed ???Type pantoprazole 40 mg tablet,delayed 40 mg PO QDAY #90 tabs 02/07/25 0 04/01/25 Rx release Diltiazem 2% / Lidocaine 5% #1 ea 02/15/25 04/01/25 Rx ointment (compound) (Diltiazem 2%/Lidocaine 5% ointment (compound)) PFSH Medical History Abnormal biliary HIDA scan Wears glasses Depression Anxiety Marijuana use Fatty liver High cholesterol Migraine headache Non-smoker Surgical History Enlarged adenoids History of wisdom tooth extraction Social History (Updated 04/01/25 @ 10:14 by Rosemarie Arzola LPN) Smoking Status: Current every day smoker tobacco type: cigarettes alcohol intake: never substance use type: does not use HPI HPI HPI: The patient is a 39-year-old male who presents today with 2 main complaints. His biggest complaint is symptomatic hemorrhoids. He states that he typically notices blood with bowel movements pretty much on a daily basis. He denies any significant issues with constipation or straining. He had a colonoscopy just a few months ago that just showed hemorrhoids. Patient also with periodic right upper quadrant pain and an abnormal HIDA scan. He states that this pain is typically in the right upper quadrant also on a mostly daily basis. He has not really noticed any significant worsening with eating. He has been referred for evaluation and treatment recommendations of these 2 issues. ROS General General: Yes fatigue; No weight change, appetite, colon cancer, breast cancer or weakness HEENT HEENT: No difficulty swallowing, eye injury, eye surgery, swollen glands or hoarseness Endo Endocrine: No thyroid disease, diabetes mellitus, thyroid cancer, Hair loss, heat intolerance or cold intolerance Skin Skin: No rash or changing moles Musc Musculoskeletal: Yes back problems; No arthritis, rheumatoid arthritis, gout or joint pain Cardio Cardiovascular: No murmur, pacemaker, heart disease, atrial fibrillation, high blood pressure, heart attack, heart stent, palpitations, shortness of breath with exertion or chest pain Psych Psychiatric: Yes anxiety; No depression or hearing voices Resp Respiratory: No shortness of breath, No sleep apnea, No cough, No COPD, No asthma, No emphysema and No wheezing Gastro Gastrointestinal: Yes abdominal pain, No nausea or vomiting, No diarrhea, No constipation, Yes blood in stool, No acid reflux, Yes hemorrhoids, No ulcers, Yes gallbladder problem and No black,tarry stools Jose Luis Hematologic: No blood thinners, No blood disorders, No bleeding, No anemia and No blood clots Neuro Neurologic: No numbness, No tingling and No weakness Exam Const General: cooperative, comfortable, no acute distress and well developed HENVA Head: normal to inspection Eyes General: appearance normal, both eyes and all related structures Neck Neck: normal visual inspection Resp Effort Inspection: normal respiratory effort and able to speak in complete sentences GI Inspection: normal to inspection Other: Perirectal examination revealed fairly typical appearing external hemorrhoids however his internal hemorrhoids do appear swollen and inflamed. I suspect some are prolapsing at times as well based on their appearance Assessment and Plan Assessment and Plan (1) Abnormal biliary HIDA scan: Status: Acute (2) Hemorrhoids: Status: Acute Plan: The patient is a 39-year-old male with symptomatic internal hemorrhoids as well as biliary dyskinesia. Patient admits that his hemorrhoids are probably the more problematic issue. I would not recommend surgical intervention on both issues at the same time. I have recommended that we begin with a Doppler guided hemorrhoid artery ligation to address his internal hemorrhoids. We discussed the details of the planned procedure and he wishes to proceed. We can certainly proceed wi (more content not included)... Normal [facility] Gastroenterology Visit Repor ton 02-07-2025 Gastroenterology Visit Report [facility] [address] [place] [address] OFFICE VISIT Date of Service: 02/07/25 MR#: [id number] Acct: [id number] Name: ELAINA RENE BIANCA Rep #: [id number] : 1985 Provider: BOBY reis Age/Sex: 39/M Location: [facility] Status: Signed Intake Vital Signs 12/13/24 10:08 Height 6 ft Weight: 186 lb 6 oz BMI 25.2 BP 112/72 Respiration 16 Pulse 57 L Pulse Oximetry (%) 98 Oxygen Delivery Method room air Intake Visit Reasons: TEST RESULTS Chief Complaint: follow-up Allergies No Known Allergies Allergy (Verified 12/13/24 10:05) [facility] Medical History Wears glasses Depression Anxiety Marijuana use Fatty liver High cholesterol Migraine headache Non-smoker Surgical History Enlarged adenoids History of wisdom tooth extraction Social History Smoking Status: Current every day smoker tobacco type: cigarettes HPI HPI Chief Complaint: follow-up Details: HIDA scan: Normal gallbladder visualization, no stones, sludge, or wall thickening. Bile duct normal. CCK stimulation resulted in 0% ejection fraction with pain. The patient is a 39-year-old male presenting with abdominal pain and hemorrhoids. The patient reports abdominal pain linked to gallbladder dysfunction, particularly noted during a HIDA scan with CCK stimulation, causing significant discomfort. He describes the pain as progressively worsening with each injection, reaching severe levels leora to his worst stomach pain episodes. He denies nausea or vomiting with these pain episodes and experiences them at least once or twice weekly. There is no clear link between food intake and pain onset, though he notes slower digestion compared to others. The patient also reports symptomatic hemorrhoids, advised for surgical intervention, causing swelling and discomfort, complicating pain differentiation. He has not started pantoprazole due to pharmacy issues but plans to obtain it soon. Despite reducing marijuana use, previously considered a pain contributor, he has not noticed significant symptom changes. Attestation: Documentation on this patient encounter was supported using ambient scribe technology/ voice AI technology. The patient consented to recording for the purpose of documenting the encounter. Provider reviewed content of the generated note prior to signature. ROS Const Constitutional: No anorexia, body ache, chills, excessive sweating, fatigue, fever(s), frequent falls, headache(s), decreased energy, malaise, night sweats, snoring, weakness, weight change, sleep problems, abnormal sleep pattern, change in appetite or other ENT ENT: No headache(s) Resp Respiratory: No snoring Cardio Cardiology: No excessive sweating Gastro GI: Positive for abdominal pain and other (hemorrhoids, rectal pain) Genitourinary Male: No difficulty urinating, burning urination, painful urination, urinary incontinence, urinary frequency, urinary urgency, urinary hesitancy, urinary retention, blood in urine, Frequent nighttime urination/ nocturia, post void dribbling, suprapubic fullness, side pain, sexual problems, genital lesions, genital itching, erectile dysfunction, penile discharge, difficulty with ejaculations, blood in semen, scrotal swelling, testicle lump, testicle pain or other Skin Skin: No acne, hair loss in leg, change in hair, nail changes, boil, change in skin color, dry skin, redness, excessive hair growth, yellowing of the eye, lesions, itchy eyes, rash, skin pain, skin ulcer, sores, skin swelling, wounds or other Neuro Neurology: No weakness, frequent falls or headache(s) Psych Psychiatric: No abnormal sleep pattern and No change in appetite Endo Endocrine: No excessive sweating, fatigue or weight change Aller/Imm Allergy/Immunologic: No itchy eyes Jose Luis/Lymp Hematologic/Lymphatic: No easy bleeding, easy bruising, enlarged lymph nodes or other ROS Narrative - Gastrointestinal: Reports abdominal pain associated with gallbladder dysfunction. Denies nausea or vomiting. - Digestive: Reports slower digestion compared to others. - Musculoskeletal: Denies any musculoskeletal pain. Exam Const General: cooperative, healthy appearing, no [...] Resp Effort Inspection: normal respiratory effort, able t (more content not included)... Normal [facility] Hepatobilliary Img w/Pharm I nton 01-28-2025 Hepatobilliary Img w/Pharm Int [facility] [address], [place] [id number] Hepatobilliary Img w/Pharm Int MR#: [id number] Acct: [id number] Name: EDGARDELAINA VALENZUELA Rep #: [id number] : 1985 M 39 From: Humphrey Torres PCP: Tc Aly NP-C Status: REG CLI Study: Hepatobilliary Img w/Pharm Int Date of Exam: 0 01/28/25 Exam# [id number] Ordering Dr: Bess Leigh PROCEDURE: HEPATOBILLIARY IMG W/PHARM INT 01/28/2025 REASON FOR EXAM: RUQ PAIN TECHNIQUE: Intravenous Choletec with planar imaging of the abdomen. 1.6 Mcg Kinevac intravenously approximately 60 minutes after the radiopharmaceutical with additional anterior imaging and a region of interest drawn around the gallbladder to calculate a time-activity curve. RADIOPHARMACEUTICAL: Technetium 99 M mebrofenin DOSE 5.1mCi intravenous. COMPARISON: None. FINDINGS: There is satisfactory uptake and excretion of the radiopharmaceutical by the liver. Normal gallbladder visualization with the gallbladder identified by 15 minutes. Small bowel activity is also seen by the 15 minute film. Gallbladder Ejection Fraction: 0 % (Normal is >35%) NM/Hepatobilliary Img w/Pharm Int IMPRESSION: 1. Absence of gallbladder ejection following cholecystokinin administration. This may be due to chronic cholecystitis. 2. No evidence of common duct obstruction. 3. Negative hepatobiliary scan, otherwise. Reading Location: [address] CC: BOBY Leigh; BOBY Aly Statistical Engineer: Signed Normal [facility] L3410.9992on 01-02-2025 [facility] Normal . [facility] Comment on above: Order Comment: [id number] 9ELF TEST TIGER RF Result Comment: Test Ordered: [id number] Enhanced Liver Fibrosis (ELF) ELF(TM) Score 8.00 BN Reference Range: <9.80 ELF(TM) Score Interpretation: Risk cut-offs to assess the likelihood of progression to cirrhosis and liver-related clinical events within 3.9 years following baseline ELF score (IQR: 14.0-22.4 months)*: Lower risk < 9.80 Mid risk 9.80 - 11.29 Higher risk >11.29 Note: The ELF(TM) Score is a unitless numerical value. *Clifford SA, Kelvin VW, Agustina T, et al. Selonsertib for patients with bridging fibrosis or compensated cirrhosis due to JEAN: Results from randomized phase III STELLAR trials. J Hepatol. 2020 Jan;73(1):26-39. Performed at: [address] [id number] Bar Tender: Elmo Stiles MD, Phone: [phone] Performed at: [address] [id number] Bar Tender: Omkar Harris PhD, Phone: [phone] Performed By: #### L 3100.0460, L3410.9992, L3890.6202, L3890.6301, L3100.0300, L3890.6102, L500.4100 ####[facility] [id number] [place], [address] Hepatitis A AB, Totalon 12-23 HEPATITIS A,TOT Negative Normal Negative [facility] Comment on above: Result Comment: Comm ent: The HAV total antibody assay detects both IgG and IgM but does not differentiate between them. A negative result suggests susceptibility to infection. A positive result could be due to vaccination, previously resolved infection or active infection. Testing for HAV IgM should be performed if active HAV infection is suspected. [facility] offers profiles that will automatically reflex positive HAV total antibody results to IgM (e.g., panel #[id number] HAV Antibody w/ Rfx). Performed at: [address] [id number] Bar Tender: Omkar Harris PhD, Phone: [phone] Performed By: #### L 3100.0460, L3410.9992, L3890.6202, L3890.6301, L3100.0300, L3890.6102, L500.4100 ####[facility] [id number], [address] Hepatitis B Core Ab Totalon 01-01-2025 HEP B CORE,TOT Negative Normal Negative [facility] Comment on above: Performed By: #### L 3100.0460, L3410.9992, L3890.6202, L3890.6301, L3100.0300, L3890.6102, L500.4100 ####[facility] [id number] [facility] [place], [place], [address] Calculated very low density lipoprotein (VLDL) cholesterol measurementOrdered By: Bess Leigh on 12-31-2024 Calculated very low density lipoprotein (VLDL) cholesterol measurement 18 mg/dL 5-40 [facility] Hepatitis B Surface Antibody on 12-31-2024 HEP B Surf Ab Non-Reactive Normal [facility] Comment on above: Result Comment: <8.5 mIU/mL: Non-Reactive 8.5<= x <11.5 mIU/mL: Indeterminate >=11.5 mIU/mL: Reactive Non Reactive: Inconsistent with immunity less than <10 mIU/mL Reactive: Consistent with immunity greater than or equal to 10 mIU/mL Performed By: #### L 3100.0460, L3410.9992, L3890.6202, L3890.6301, L3100.0300, L3890.6102, L500.4100 ####[facility] [id number] [facility] [place], [place], [address] Hepatitis C Antibodyon 12-31 Hepatitis C Ab Non-Reactive Normal Nonreactive [facility] Comment on above: Order Comment: Comme nts: fasting Result Comment: Reac tive: Presumptive evidence of antibodies to HCV. Follow CDC recommendations for supplemental testing. Non-Reactive: Antibodies to HCV were not detected; does not exclude the possibility of exposure to HCV Reactive Results are presumptive evidence of antibodies to HCV. Follow CDC recommendations for supplemental testing. Order confirmation testing: HCV Quant by PCR testing - HCVPCR #[id number] Non Reactive: < 0.8 Equivocal: >/= 0.8 to < 1.0 Reactive: >/= 1.0 The CDC requires that a reactive/equivocal HCV antibody result be sent out for confirmation. HCV Quant by PCR testing. Performed By: #### L 3100.0460, L3410.9992, L3890.6202, L3890.6301, L3100.0300, L3890.6102, L500.4100 ####[facility] [address] [place], [address] L3890.6102on 12-31-2024 HEP B Surf Ag Non-Reactive Normal Nonreactive [facility] Comment on above: Order Comment: Comme nts: fasting Result Comment: Reac tive: Presumptive evidence of HBV. Repeatedly reactive samples must be confirmed using a neutralization test ([employer] HBsAg Confirmatory Test) Non-Reactive: HBsAg not detected; does not exclude the possibility of exposure to HBV Performed By: #### L 3100.0460, L3410.9992, L3890.6202, L3890.6301, L3100.0300, L3890.6102, L500.4100 ####[facility] [address] [place], [address] LDL calc ser/plasOrdered By: Bess Leigh on 12-31-2024 Cholesterol in LDL [Mass/Vol] 85 mg/dL [facility] Comment on above: Xfngypkafp=489-202 m g/dL & Higher Sgkm=163 mg/dL or greater Laboratory - Microbiology an d Antimicrobial susceptibilityOrdered By: Bess Leigh on 12-31-2024 HBV surface Ag Ql (S) Non-Reactive Nonreactive [facility] Comment on above: Reactive: Presumptiv e evidence of HBV. Repeatedly reactive samples must be confirmed using a neutralization test ([employer] HBsAg Confirmatory Test)Non-Reactive: HBsAg not detected; does not exclude the possibility of exposure to HBV Lipid Profileon 12-31-2024 CHOL:HDL 3.22 Normal [facility] Comment on above: Order Comment: Comme nts: fasting Performed By: #### L 3100.0460, L3410.9992, L3890.6202, L3890.6301, L3100.0300, L3890.6102, L500.4100 ####[facility] [address] [place], [address] Cholesterol [Mass/Vol] 149 mg/dL Normal <=200 [facility] Comment on above: Order Comment: Comme nts: fasting Result Comment: Chol esterol level, Desirable <200 mg/dL Borderline high cholesterol 200-239 mg/dL High cholesterol >=240 mg/dL Recommendations of the NCEP Adult Treatment Panel for the following risk-cutoff thresholds for the [place] population. Performed By: #### L 3100.0460, L3410.9992, L3890.6202, L3890.6301, L3100.0300, L3890.6102, L500.4100 ####[facility] [address] [place], [address] Cholesterol in HDL [Mass/Vol] 46 mg/dL Normal [facility] Comment on above: Order Comment: Comme nts: fasting Result Comment: Nnaci onal Cholesterol Education Program (NCEP) guidelines: <40 mg/dL: Low HDL-cholesterol (major risk factor for CHD) >= 60 mg/dL: High HDL-cholesterol (negative risk factor for CHD) HDL-cholesterol is affected by a number of factors, e.g. smoking, exercise, hormones, sex and age. Performed By: #### L 3100.0460, L3410.9992, L3890.6202, L3890.6301, L3100.0300, L3890.6102, L500.4100 ####[facility] [address] [place], [address] Cholesterol in LDL [Mass/Vol] 85 mg/dL Normal [facility] Comment on above: Order Comment: Comme nts: fasting Result Comment: Bord zbcooc=912-157 mg/dL Higher Ubzm=328 mg/dL or greater Performed By: #### L 3100.0460, L3410.9992, L3890.6202, L3890.6301, L3100.0300, L3890.6102, L500.4100 ####[facility] [address] [place], [address] Cholesterol in VLDL [Mass/Vol] 18 mg/dL Normal 5-40 [facility] Comment on above: Order Comment: Comme nts: fasting Performed By: #### L 3100.0460, L3410.9992, L3890.6202, L3890.6301, L3100.0300, L3890.6102, L500.4100 ####[facility] [address] [place], [place], [id number] Triglyceride [Mass/Vol] 89 mg/dL Normal [facility] Comment on above: Order Comment: Comme nts: fasting Result Comment: The drugs N-Acetylcysteine and Metamizole may falsely depress this assay. Normal range: <150 mg/dL Borderline High: 150-199 mg/dL High: 200-499 mg/dL Very High: >500 mg/dL Performed By: #### L 3100.0460, L3410.9992, L3890.6202, L3890.6301, L3100.0300, L3890.6102, L500.4100 ####[facility] [address] [place], [place], [id number] Screening total cholesterol/ high density lipoprotein (HDL) cholesterol ratioOrdered By: Bess Leigh on 12-31-2024 Cholesterol.total/Choles terol in HDL [Mass ratio] 3.22 {ratio} [facility] Serum hepatitis B virus core antibody detectionOrdered By: Bess Leigh on 12-31-2024 HBV core Ab Ql (S) Negative Negative [facility] Serum hepatitis B virus surf lauren antibody detectionOrdered By: Bess Leigh on 12-31-2024 HBV surface Ab Ql (S) Non-Reactive [facility] Comment on above: <8.5 mIU/mL: Non-[place] ctive8.5<= x <11.5 mIU/mL: Indeterminate>=11.5 mIU/mL: Reactive Non Reactive: Inconsistent with immunity less than <10 mIU/mL Reactive: Consistent with immunity greater than or equal to 10 mIU/mL Serum or plasma cholesterol in HDL measurement (mass/volume)Ordered By: Bess Leigh on 12-31-2024 Cholesterol in HDL [Mass/Vol] 46 mg/dL >40 [facility] Comment on above: National Cholesterol Education Program (NCEP) guidelines:<40 mg/dL: Low HDL-cholesterol (major risk factor for CHD)>= 60 mg/dL: High HDL-cholesterol (negative risk factor for CHD)HDL-cholesterol is affected by a number of factors, e.g. smoking, exercise, hormones, sex and age. Serum or plasma cholesterol measurement (mass/volume)Ordered By: Bess Leigh on 12-31-2024 Cholesterol [Mass/Vol] 149 mg/dL <201 [facility] Comment on above: Cholesterol level, D esirable <200 mg/dLBorderline high cholesterol 200-239 mg/dLHigh cholesterol >=240 mg/dLRecommendations of the NCEP Adult Treatment Panel for the following risk-cutoff thresholds for the [place] population. Triglycerides measurementOrd ered By: Bess Leigh on 12-31-2024 Triglyceride [Mass/Vol] 89 mg/dL <199 [facility] Comment on above: The drugs N-Acetylcy steine and Metamizole may falsely depress this assay. Normal range: <150 mg/dLBorderline High: 150-199 mg/dLHigh: 200-499 mg/dLVery High: >500 mg/dL Gastroenterology Visit Repor ton 12-13-2024 Gastroenterology Visit Report [facility] Gastroenterology [address] [place] [address] OFFICE VISIT Date of Service: 12/13/24 MR#: [id number] Acct: [id number] Name: ELAINA RENE AM Rep #: [id number] : 1985 Provider: BOBY reis Age/Sex: 39/M Location: [facility] Status: Signed Intake Vital Signs 09/12/24 10:38 11/22/24 09:33 12/13/24 10:08 Height 6 ft 6 ft 6 ft Weight: 186 lb 6 oz BMI 25.2 BP 112/72 Respiration 16 Pulse 57 L Pulse Oximetry (%) 98 Oxygen Delivery Method room air Intake Visit Reasons: 3 M FU Chief Complaint: follow-up Black Oxide Operator Required: No Accompanied by: Self Is patient in pain?: Yes Allergies No Known Allergies Allergy (Verified 12/13/24 10:05) Medications ???Medication ???Instructions ???Recorded ???Confirmed ???Type pantoprazole 40 mg tablet,delayed 40 mg PO QDAY #90 tabs 05/22/25 0 12/13/24 Rx release PFSH Medical History Wears glasses Depression Anxiety Marijuana use Fatty liver High cholesterol Migraine headache Non-smoker Surgical History Enlarged adenoids History of wisdom tooth extraction Social History Smoking Status: Current every day smoker (Patient smoked marijuana this morning.) tobacco type: cigarettes HPI HPI Chief Complaint: follow-up Details: ELAINA RENE, is a 39 M who presents to [...] pain, hurts more in the evening or immersion 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 Normal [facility] Colonoscopy Reporton 025 Colonoscopy Report [facility] Medical Records Department [address] [place] [address] Colonoscopy Report MR#: [id number] Acct: [id number] Name: ELAINA RENE AM Rep #: [id number] : 1985 39 From: Jignesh Friend DO PCP: JESSICA OrdazC Status:REG SDC Patient Name: Elaina Rene Procedure Date: 11/22/2024 10:42 AM Date of [...] present medications. Procedure Code(s): --- Professional --- 14252, Colonoscopy, flexible; diagnostic, including collection of specimen(s) by brushing or washing, when performed (separate procedure) CPT copyright 2021 [employer]. All rights reserved. The codes documented in this report are preliminary and upon field crop farmworker review may be revised to meet current compliance requirements. Jignesh Hampton DO 11/22/2024 11:18:16 AM This report has been signed electronically. Number of Addenda: 0 Note Initiated On: 11/22/2024 10:42 AM 11/22/24 1118 Date Jignesh Velazquez Signature: Date (if indicated) CC: BOBY Aly; Jignesh Hampton DO Date Dictated: 11/22/24 1042 Date Transcribed: Statistical Engineer: PK Signed [facility] MR/POSTOP.Calvin 11-22-2024 MR/POSTOP.[facility] Medical Records Department [address] [place] [address] Anesthesia Postop Eval I 11/22/24 1131 MR#: [id number] Acct: [id number] Name: ELAINA RENE AM Rep #: [id number] : 1985 39 From: Lucio Schultz PCP: BOBY Ordaz Status:REG SDC Y Race: C Location: [place] [address] Anesthesia: Postop Eval I Current Vital Signs [...] 1 completed: Yes 11/22/24 1132 Date Lucio Vossigner Signature: Date CC: Signed Normal [facility] MR/[id number] 11-22-2024 /[facility] Medical Records Department [address] [place] [address] Anesthesia Postop Eval II 11/22/24 1454 MR#: [id number] Acct: [id number] Name: ELAINA RENE BIANCA Rep #: [id number] : 1985 39 From: Jarocho Houston MD PCP: BOBY Ordaz Status:[facility] Y Race: C Location: [place] Anesthesia Postop [...] MD Cosigner Signature: Date CC: Signed Normal [facility] Abdomen Limitedon 10-03-2024 Abdomen Limited [facility] Imaging Services [address] [place] [address] Abdomen Limited MR#: [id number] Acct: [id number] Name: ELAINA RENE Rep #: [id number] : 1985 M 39 From: Stewart angela MD PCP: BOBY Ordaz Status: REG CLI Study: Abdomen Limited Date of Exam: 10/03/24 Exam# [id number] Ordering Dr: Bess Leigh PROCEDURE: ABDOMEN LIMITED [...] Fatty infiltration of the liver. Reading Location: [place] [address] CC: BOBY Leigh; BOBY Aly Statistical Engineer: Signed Normal [facility] Absolute lymphocyte countOrd ered By: Bess Leigh on 09-12-2024 Lymphocytes Auto (Unsp spec) [#/Vol] 3.28 10*3/uL 0.83-4.51 [facility] Absolute neutrophil countOrd ered By: Bess Pulidoony on 09-12-2024 Neutrophils (Bld) [#/Vol] 5.8 10*3/uL 2.0-7.7 [facility] Albumin to globulin ratioOrd ered By: Bess Reese on 09-12-2024 Albumin/Globulin [Mass ratio] 1.4 {ratio} 0.9-2.4 [facility] Automated lymphocyte count a s percentage of total leukocytesOrdered By: Bess Leigh on 09-12-2024 Lymphocytes/100 WBC Auto (Unsp spec) 31.7 % - [facility] Basophil percentageOrdered B y: Bess Leigh on 09-12-2024 Basophils/100 WBC (Bld) 0.7 % 0-1 [facility] Bilirubin, totalOrdered By: Bess Reese on 09-12-2024 Bilirubin [Mass/Vol] 1.40 mg/dL High 0.20-1.00 [facility] Comment on above: For patients on eltr ombopag therapy, use of Dimension [place] TBIL is not recommended. Blood urea nitrogen (BUN)/cr eatinine ratioOrdered By: Bess Leigh on 09-12-2024 Urea nitrogen/Creatinine [Mass ratio] 13.1 mg/mg 10-20 [facility] CBC W/Diff, Automatedon 08-25 Absolute Lymph 3.28 X10 3/uL Normal 0.83-4.51 [facility] Comment on above: Performed By: #### L 100.0100, L500.4050 #### [facility] Laboratory [address] [place], [address] Absolute Neut 5.8 X10 3/uL Normal 2.0-7.7 [facility] Comment on above: Performed By: #### L 100.0100, L500.4050 #### [facility] [address] [place], [address] Basophils/100 WBC (Bld) 0.7 % Normal 0-1 [facility] Comment on above: Performed By: #### L 100.0100, L500.4050 #### [facility] Laboratory [address] [place], [address] Eosinophils/100 WBC (Bld) 3.0 % Normal 0-5 [facility] Comment on above: Performed By: #### L 100.0100, L500.4050 #### [facility] [address] [place], [address] Erythrocyte distribution width (RBC) [Ratio] 12.9 % Normal 11.6-14.6 [facility] Comment on above: Performed By: #### L 100.0100, L500.4050 #### [facility] [address] [place], [address] Hematocrit (Bld) [Volume fraction] 44.1 % Normal 40-54 [facility] Comment on above: Performed By: #### L 100.0100, L500.4050 #### [facility] [address] [place], [address] Hemoglobin (Bld) [Mass/Vol] 14.6 g/dL Normal 13.0-16.5 [facility] Comment on above: Performed By: #### L 100.0100, L500.4050 #### [facility] [address] [place], [address] IG% 0.400 Normal 0.0-0.9 [facility] Comment on above: Result Comment: IG% - Immature Granulocytes (promyelocytes, myelocytes and metamyelocytes) > 1% indicates that a LEFT SHIFT is Present. Performed By: #### L 100.0100, L500.4050 #### [facility] [address] [place], [address] Lymphocytes/100 WBC (Bld) 31.7 % Normal 19-41 [facility] Comment on above: Performed By: #### L 100.0100, L500.4050 #### [facility] [address] [place], [address] MCH (RBC) [Entitic mass] 28.0 pg Normal 27.0-32.0 [facility] Comment on above: Performed By: #### L 100.0100, L500.4050 #### [facility] [address] [place], [address] MCHC (RBC) [Mass/Vol] 33.1 g/dL Normal 32-36 [facility] Comment on above: Performed By: #### L 100.0100, L500.4050 #### [facility] [address] [place], [address] MCV (RBC) [Entitic vol] 84.6 fL Normal 80-94 [facility] Comment on above: Performed By: #### L 100.0100, L500.4050 #### [facility] [address] [place], [address] Monocytes/100 WBC (Bld) 7.8 % Normal 0-10 [facility] Comment on above: Performed By: #### L 100.0100, L500.4050 #### [facility] [address] [place], [address] Neutrophils/100 WBC (Bld) 56.4 % Normal 47-70 [facility] Comment on above: Performed By: #### L 100.0100, L500.4050 #### [facility] [address] [place], [address] Nucleated RBC (Bld) [#/Vol] 0 10*3/uL Normal 0-5 [facility] Comment on above: Performed By: #### L 100.0100, L500.4050 #### [facility] [address] [place], [address] Platelet mean volume (Bld) [Entitic vol] 9.9 fL Normal 6.2-12.0 [facility] Comment on above: Performed By: #### L 100.0100, L500.4050 #### [facility] Laboratory [address] [place], [address] Platelets (Bld) [#/Vol] 233 10*3/uL Normal 150-450 [facility] Comment on above: Performed By: #### L 100.0100, L500.4050 #### [facility] [address] [place], [address] RBC (Bld) [#/Vol] 5.21 10*6/uL Normal 4.6-6.2 [facility] Comment on above: Performed By: #### L 100.0100, L500.4050 #### [facility] [address] [place], [address] RDW SD 39.7 fl Normal 35.1-43.9 [facility] Comment on above: Performed By: #### L 100.0100, L500.4050 #### [facility] [address] [place], [address] WBC (Bld) [#/Vol] 10.4 10*3/uL Normal 4.4-11.0 [facility] Comment on above: Performed By: #### L 100.0100, L500.4050 #### [facility] [address] [place], [address] Carbon dioxide measurementOr dered By: eBss Leigh on 09-12-2024 CO2 [Moles/Vol] 28.0 mmol/L 21.0-32.0 [facility] Chloride measurementOrdered By: Bess Leigh on 09-12-2024 Chloride [Moles/Vol] 108 mmol/L High 98-107 [facility] Comprehensive Metabolic Prof ilon 09-12-2024 Albumin [Mass/Vol] 4.2 g/dL Normal 3.2-5.0 [facility] Comment on above: Performed By: #### L 100.0100, L500.4050 ####[facility] [address] [place], [address] Albumin/Globulin [Mass ratio] 1.4 {ratio} Normal 0.9-2.4 [facility] Comment on above: Performed By: #### L 100.0100, L500.4050 ####[facility] [address] [place], [address] ALK P 64 U/L Normal 45-117 [facility] Comment on above: Performed By: #### L 100.0100, L500.4050 ####[facility] [address] [place], [address] ALT [Catalytic activity/Vol] 31 U/L Normal 16-61 [facility] Comment on above: Performed By: #### L 100.0100, L500.4050 ####[facility] [address] [place], [address] AST [Catalytic activity/Vol] 21 U/L Normal 15-37 [facility] Comment on above: Performed By: #### L 100.0100, L500.4050 ####[facility] [address] [place], [address] Bilirubin [Mass/Vol] 1.40 mg/dL High 0.20-1.00 [facility] Comment on above: Result Comment: For patients on eltrombopag therapy, use of Dimension [place] TBIL is not recommended. Performed By: #### L 100.0100, L500.4050 ####[facility] [address] [place], [address] BUN/CRE 13.1 RATIO Normal 10-20 [facility] Comment on above: Performed By: #### L 100.0100, L500.4050 ####[facility] [address] [place], [address] CA,Total 9.4 mg/dL Normal 8.5-10.1 [facility] Comment on above: Performed By: #### L 100.0100, L500.4050 ####[facility] [address] [place], [address] Chloride [Moles/Vol] 108 mmol/L High 98-107 [facility] Comment on above: Performed By: #### L 100.0100, L500.4050 ####[facility] [address] [place], [address] CO2 [Moles/Vol] 28.0 mmol/L Normal 21.0-32.0 [facility] Comment on above: Performed By: #### L 100.0100, L500.4050 ####[facility] [address] [place], [address] Creatinine [Mass/Vol] 1.00 mg/dL Normal 0.70-1.30 [facility] Comment on above: Result Comment: The validity of the calculated GFR GFRAA in patients over 70 years has not been determined. Clinical correlation is essential. Performed By: #### L 100.0100, L500.4050 ####[facility] [address] [place], [address] EST GFR - AA 108 mL/min Normal >60 [facility] Comment on above: Result Comment: Afri can [place]ese GFR Calc Performed By: #### L 100.0100, L500.4050 ####[facility] [address] [place], [address] GAP 5 Normal 5-15 [facility] Comment on above: Performed By: #### L 100.0100, L500.4050 ####[facility] [address] [place], [address] GFR/1.73 sq M.predicted among non-blacks MDRD (S/P/Bld) [Vol rate/Area] 89 mL/min/{1.73_m2} Normal >60 [facility] Comment on above: Result Comment: Non- GFR Calc Performed By: #### L 100.0100, L500.4050 ####[facility] [address] [place], [address] Globulin (S) [Mass/Vol] 3.0 g/dL Normal 2.2-4.2 [facility] Comment on above: Performed By: #### L 100.0100, L500.4050 ####[facility] [address] [place], [address] Glucose [Mass/Vol] 85 mg/dL Normal 74-106 [facility] Comment on above: Performed By: #### L 100.0100, L500.4050 ####[facility] [address] [place], [address] Potassium [Moles/Vol] 3.8 mmol/L Normal 3.5-5.1 [facility] Comment on above: Performed By: #### L 100.0100, L500.4050 ####[facility] [address] [place], [address] Sodium [Moles/Vol] 141 mmol/L Normal 136-145 [facility] Comment on above: Performed By: #### L 100.0100, L500.4050 ####[facility] [address] [place], [address] T PROT 7.2 g/dL Normal 6.4-8.2 [facility] Comment on above: Performed By: #### L 100.0100, L500.4050 ####[facility] [address] [place], [address] Urea nitrogen [Mass/Vol] 13 mg/dL Normal 7-18 [facility] Comment on above: Performed By: #### L 100.0100, L500.4050 ####[facility] [address] [place], [place], [address] Eosinophil percentageOrdered By: Bess Leigh on 09-12-2024 Eosinophils/100 WBC (Bld) 3.0 % 0-5 [facility] Erythrocyte distribution wid th ratioOrdered By: Bess Leigh on 09-12-2024 Erythrocyte distribution width (RBC) [Ratio] 12.9 % 11.6-14.6 [facility] Erythrocyte distribution wid th standard deviationOrdered By: Bess Leigh on 09-12-2024 Erythrocyte distribution width (RBC) [Entitic vol] 39.7 fL 35.1-43.9 [facility] Erythrocyte distribution width (RBC) [Ratio] 39.7 fl 35.1-43.9 [facility] Estimated glomerular filtrat ion rate (GFR) AmericanOrdered By: Bess Leigh on 09-12-2024 Estimated GFR (MDRD) Amer 108 mL/min >60 [facility] Comment on above: GFR Calc Gastroenterology Visit Repor ton 09-12-2024 Gastroenterology Visit Report [facility] Gastroenterology [address] [place] [address] OFFICE VISIT Date of Service: 09/12/24 MR#: [id number] Acct: [id number] Name: ELAINA RENE BIANCA Rep #: [id number] : 1985 Provider: BOBY reis Age/Sex: 39/M Location: [facility] Status: Signed Intake Vital Signs 09/12/24 10:38 Height 6 ft Weight: 186 lb BMI 25.2 BP 128/83 H Respiration 18 Pulse 98 Pulse Oximetry (%) 98 Oxygen Delivery Method room air Intake Visit Reasons: Abdominal complaints Chief Complaint: pain and bleeding Black Oxide Operator Required: No Is patient in pain?: No [...] Chief Complaint: pain and bleeding Details: ELAINA RENE, is a 39 M who presents to [...] well nourished Orientation: alert and oriented x3 [facility] Head: normocephalic Ears: hearing grossly normal [...] with vomitin (more content not included)... Normal [facility] Glomerular filtration rate ( GFR) estimationOrdered By: Bess Leigh on 09-12-2024 Estimated GFR (MDRD) Non-Af Amer 89 mL/min >60 [facility] Comment on above: Non- GFR Calc GFR/1.73 sq M.predicted among non-blacks MDRD (S/P/Bld) [Vol rate/Area] 89 mL/min/{1.73_m2} >60 [facility] Comment on above: Non- GFR Calc Glucose measurementOrdered B y: Bess Leigh on 09-12-2024 Glucose [Mass/Vol] 85 mg/dL 74-106 [facility] Hematocrit Auto (Bld) [Volum e fraction]Ordered By: Bess Leigh on 09-12-2024 Hematocrit (Bld) [Volume fraction] 44.1 % 40-54 [facility] Hemoglobin measurementOrdere d By: Bess Leigh on 09-12-2024 Hemoglobin (Bld) [Mass/Vol] 14.6 g/dL 13.0-16.5 [facility] Immature granulocytes/100 WB C Auto (Bld)Ordered By: Bess Leigh on 09-12-2024 Immature granulocytes/100 WBC (Bld) 0.400 % 0.0-0.9 [facility] Comment on above: IG% - Immature Granu locytes (promyelocytes, myelocytes and metamyelocytes) > 1% indicates that a LEFT SHIFT is Present. Laboratory - Chemistry and C hemistry - challengeOrdered By: Bess Leigh on 09-12-2024 AST [Catalytic activity/Vol] 21 U/L 15-37 [facility] Lymphocytes Auto (Unsp spec) [#/Vol]Ordered By: Bess Leigh on 09-12-2024 Lymphocytes (Bld) [#/Vol] 3.28 10*3/uL 0.83-4.51 [facility] Lymphocytes/100 WBC Auto (Un sp spec)Ordered By: Bess Leigh on 09-12-2024 Lymphocytes/100 WBC (Bld) 31.7 % 19-41 [facility] MCV (mean corpuscular volume ) determinationOrdered By: Bess Leigh on 09-12-2024 MCV (RBC) [Entitic vol] 84.6 fL 80-94 [facility] Mean corpuscular hemoglobin (MCH) determinationOrdered By: Bess Leigh on 09-12-2024 MCH (RBC) [Entitic mass] 28.0 pg 27.0-32.0 [facility] Mean corpuscular hemoglobin concentration (MCHC) determinationOrdered By: Bess Leigh on 09-12-2024 MCHC (RBC) [Mass/Vol] 33.1 g/dL 32-36 [facility] Mean platelet volume determi nationOrdered By: Bess Leigh on 09-12-2024 Platelet mean volume (Bld) [Entitic vol] 9.9 fL 6.2-12.0 [facility] Monocyte percentageOrdered B y: Bess Leigh on 09-12-2024 Monocytes/100 WBC (Bld) 7.8 % 0-10 [facility] Neutrophil percentageOrdered By: Bess Leigh on 09-12-2024 Neutrophils/100 WBC (Bld) 56.4 % 47-70 [facility] Nucleated red blood cell per centageOrdered By: Bess Leigh on 09-12-2024 Nucleated RBC/100 WBC (Bld) [Ratio] 0 % 0-5 [facility] Platelet countOrdered By: Tushar Leigh on 09-12-2024 Platelets (Bld) [#/Vol] 233 10*3/uL 150-450 [facility] Potassium measurementOrdered By: Bess Leigh on 09-12-2024 Potassium [Moles/Vol] 3.8 mmol/L 3.5-5.1 [facility] RBC Auto (Bld) [#/Vol]Ordere d By: Bess Leigh on 09-12-2024 RBC (Bld) [#/Vol] 5.21 10*6/uL 4.6-6.2 [facility] Serum anion gap measurementO rdered By: Bess Leigh on 09-12-2024 Anion gap [Moles/Vol] 5 mmol/L 5-15 [facility] Serum globulin measurementOr dered By: Bess Leigh on 09-12-2024 Globulin (S) [Mass/Vol] 3.0 g/dL 2.2-4.2 [facility] Serum or plasma alanine morgan otransferase (ALT) measurementOrdered By: Bess Leigh on 09-12-2024 ALT [Catalytic activity/Vol] 31 U/L 16-61 [facility] Serum or plasma albumin hanh urement (mass/volume)Ordered By: Bess Leigh on 09-12-2024 Albumin [Mass/Vol] 4.2 g/dL 3.2-5.0 [facility] Serum or plasma alkaline asia sphatase measurementOrdered By: Bess Leigh on 09-12-2024 ALP [Catalytic activity/Vol] 64 U/L 45-117 [facility] Serum or plasma calcium hanh urement (mass/volume)Ordered By: Bess Leigh on 09-12-2024 Calcium [Mass/Vol] 9.4 mg/dL 8.5-10.1 [facility] Serum or plasma creatinine m easurement (mass/volume)Ordered By: Bess Leigh on 09-12-2024 Creatinine [Mass/Vol] 1.00 mg/dL 0.70-1.30 [facility] Comment on above: The validity of the calculated GFR & GFRAA in patients over 70 years has not been determined. Clinical correlation is essential. Serum or plasma urea nitroge n measurement (mass/volume)Ordered By: Bess Leigh on 09-12-2024 Urea nitrogen [Mass/Vol] 13 mg/dL 7-18 [facility] Sodium levelOrdered By: Nicol Leigh on 09-12-2024 Sodium [Moles/Vol] 141 mmol/L 136-145 [facility] Total proteinOrdered By: Elenita Leigh on 09-12-2024 Protein [Mass/Vol] 7.2 g/dL 6.4-8.2 [facility] White blood cell (WBC) count Ordered By: Bess Leigh on 09-12-2024 WBC (Bld) [#/Vol] 10.4 10*3/uL 4.4-11.0 [facility] CNPEmerita 08-22-2024 SLIM Telephone (MARYA) ELAINA RENE ([id number]) 1985 M [facility] Date Time Provider Department 08/22/24 TC ALY During your visit today, we recorded the following information about you: Shawn Hawkins Ólpez 08/22/2024 5:15 PM Signed Faxed referral for Gastroenterology and Demographic sheet. Pt called stating he was having a hard time getting a hold of Dr. Hampton's office. Called office and talk to scheduling she asked us to refax order. Faxed to [phone] Allergies As of Date: 08/22/2024 (No Known Allergies) Date Reviewed: 07/24/2024 Reviewed by: Joyce Cullen APRN.CUT OFF SAW TENDER METAL - Fully Assessed Reason for Visit: faxed referral [Other] Cmt: Faxed referral to Dr. Hampton Prescriptions as of 08/22/2024 - ynwdksxgg-qkrpoovid-ig ycerin-white petrolatum (PREPARATION H) 0.25-1 % crea by RECTAL route three times a day as needed. Problem List As Of Date 08/22/2024 Noted Resolved Social phobia [F40.10] 10/18/2014 Anxiety [F41.9] 10/18/2014 Nausea AND vomiting [R11.2] 10/18/2014 Residual hemorrhoidal skin tags [K64.4] 09/17/2022 Encounter Status:Closed by SHAWN HAWKINS LÓPEZ on 08/22/24 [facility] Jeff 07-26-2024 KEYN Telephone (AGFAMPLE) ELAINA RENE ([id number]) 1985 M [facility] Date Time Provider Department 07/26/24 JOYCE CULLEN During your visit today, we recorded the following information about you: Concepción Singleton MA 07/26/2024 9:58 AM Signed ----- Message from Joyce Cullen APRN.CUT OFF SAW TENDER METAL sent at 07/24/2024 11:53 AM EST ----- [...] Allergies) Date Reviewed: 07/24/2024 Reviewed by: Joyce Cullen APRN.CUT OFF SAW TENDER METAL - Fully Assessed Reason for Visit: Results [95] Prescriptions as of 07/26/2024 - sujipocvn-zbsuugzpi-xl ycerin-white petrolatum (PREPARATION H) 0.25-1 % crea by RECTAL route three times a day as needed. Problem List As Of Date 07/26/2024 Noted Resolved Social phobia [F40.10] 10/18/2014 Anxiety [F41.9] 10/18/2014 Nausea AND vomiting [R11.2] 10/18/2014 Residual hemorrhoidal skin tags [K64.4] 09/17/2022 Encounter Status:Closed by CONCEPCIÓN SINGLETON on 07/26/24 [facility] Sharita 07-24-2024 [facility] Office Visit (AGFAMPLE) ELAINA RENE ([id number]) 1985 [facility] Date Time Provider Department 07/24/24 10:20 AM JOYCE CULLEN During your visit today, we recorded the following information about you: Temperature Pulse Respiration Blood pressure 97.5 degrees 75/minute 16/minute 116/70 Weight Height 83.5 kg 1.829 m Joyce Cullen APRN.CNP 07/24/2024 12:12 PM Signed CHIEF COMPLAINT: Elaina Rene is a 39 year old male who [...] Current Outpatient Medications Medication Sig Dispense Refill vsvysxajo-jmpdlyjll-ya ycerin-white petrolatum (PREPARATION H) 0.25-1 % crea [...] tobacco use, (more content not included)... Normal [facility] Lipid 1996 panelon 4 Cholesterol [Mass/Vol] 176 mg/dL NINF - 200 mg/dL [facility] Comment on above: <200 mg/dL, Desirabl e 200-239 mg/dL, Borderline high >239 mg/dL, High Cholesterol in HDL [Mass/Vol] 48 mg/dL 39 - PINF mg/dL [facility] Comment on above: 40-59 mg/dL, Accepta ble >59 mg/dL, High: Negative risk factor for coronary heart disease <40 mg/dL, Low: Positive risk factor for coronary heart disease Cholesterol in LDL [Mass/Vol] 99 mg/dL NINF - 100 mg/dL [facility] Comment on above: <100 mg/dL, Optimal 100-129 mg/dL, Near optimal/above optimal 130-159 mg/dL, Borderline high 160-189 mg/dL, High >189 mg/dL, Very high Secondary prevention optimal LDL Cholesterol levels are recommended to be < 70 mg/dL Cholesterol in LDL/Cholesterol in HDL [Mass ratio] 2.06 {ratio} NINF - 2.54 [facility] Comment on above: Reference: 1. National Cholesterol Education Program ATP III Guideline At-A-Glance Quick Desk Reference: National Heart, Lung, and Blood [place]. National Institutes of Health. 2001: NIH Publication No. 01-3305. 2. An International Atherosclerosis Society position paper: global recommendations for the management of dyslipidemia: executive summary, Atherosclerosis. 2014: 232(2):410-413. Cholesterol in VLDL [Mass/Vol] 29 mg/dL NINF - 30 mg/dL [facility] Cholesterol non HDL [Mass/Vol] 128 mg/dL NINF - 130 mg/dL [facility] Comment on above: <130 mg/dL, Optimal 130-159 mg/dL, Near optimal/above optimal 160-189 mg/dL, Borderline high 190-219 mg/dL, High >219 mg/dL, Very high Secondary prevention optimal non HDL Cholesterol levels are recommended to be <100 mg/dL Cholesterol.total/Choles terol in HDL [Mass ratio] 3.67 {ratio} NINF - 5.10 [facility] Fasting Time 12 hrs [facility] Triglyceride [Mass/Vol] 143 mg/dL NINF - 150 mg/dL [facility] Comment on above: <150 mg/dL, Normal 150-199 mg/dL, Borderline high 200-499 mg/dL, High >499 mg/dL, Very high [facility] Cholesterol [Mass/Vol] 176 mg/dL Normal <200 [facility] Comment on above: Order Comment: Speci men Type: BLOOD SPECIMEN Ordering Facility: [facility] Address: [address] [place] [address] Result Comment: <200 mg/dL, Desirable 200-239 mg/dL, Borderline high >239 mg/dL, High Performed By: #### 2 4331-1 #### [facility] CLIA [id number] [address] [place] [address] [facility] Cholesterol in HDL [Mass/Vol] 48 mg/dL Normal >39 [facility] Comment on above: Order Comment: Elizabeth mary Type: BLOOD SPECIMEN Ordering Facility: [facility] Address: [address] [place] [address] Result Comment: 40-5 9 mg/dL, Acceptable >59 mg/dL, High: Negative risk factor for coronary heart disease <40 mg/dL, Low: Positive risk factor for coronary heart disease Performed By: #### 2 4331-1 #### [facility] CLIA [id number] [address] [place] [address] [facility] Cholesterol in LDL [Mass/Vol] 99 mg/dL Normal <100 [facility] Comment on above: Order Comment: Elizabeth [facility] Type: BLOOD SPECIMEN Ordering Facility: [facility] Address: [address] [place] [address] Result Comment: <100 mg/dL, Optimal 100-129 mg/dL, Near optimal/above optimal 130-159 mg/dL, Borderline high 160-189 mg/dL, High >189 mg/dL, Very high Secondary prevention optimal LDL Cholesterol levels are recommended to be < 70 mg/dL Performed By: #### 2 4331-1 #### [facility] CLIA [id number] [address] [place] [address] [facility] Cholesterol in LDL/Cholesterol in HDL [Mass ratio] 2.06 {ratio} Normal <2.54 [facility] Comment on above: Order Comment: Erisdelvin [facility] Type: BLOOD SPECIMEN Ordering Facility: [facility] Address: [address] [place] [address] Result Comment: Lefty montejo: 1. National Cholesterol Education Program ATP III Guideline At-A-Glance Quick Desk Reference: National Heart, Lung, and Blood [place]. National Institutes of Health. 2001: NIH Publication No. 01-3305. 2. An International Atherosclerosis Society position paper: global recommendations for the management of dyslipidemia: executive summary, Atherosclerosis. 2014: 232(2):410-413. Performed By: #### 2 4331-1 #### [facility] CLIA [id number] [address] [place] [address] [facility] Cholesterol in VLDL [Mass/Vol] 29 mg/dL Normal <30 [facility] Comment on above: Order Comment: Speci men Type: BLOOD SPECIMEN Ordering Facility: [facility] Address: [address] [place] [address] Performed By: #### 2 4331-1 #### [facility] CLIA [id number] [address] [place] [address] [facility] Cholesterol non HDL [Mass/Vol] 128 mg/dL Normal <130 [facility] Comment on above: Order Comment: Speci men Type: BLOOD SPECIMEN Ordering Facility: [facility] Address: [address] [place] [address] Result Comment: <130 mg/dL, Optimal 130-159 mg/dL, Near optimal/above optimal 160-189 mg/dL, Borderline high 190-219 mg/dL, High >219 mg/dL, Very high Secondary prevention optimal non HDL Cholesterol levels are recommended to be <100 mg/dL Performed By: #### 2 4331-1 #### [facility] CLIA [id number] [address] [place] [address] [facility] Cholesterol.total/Choles terol in HDL [Mass ratio] 3.67 {ratio} Normal <5.10 [facility] Comment on above: Order Comment: Speci men Type: BLOOD SPECIMEN Ordering Facility: [facility] Address: [address] [place] [address] Performed By: #### 2 4331-1 #### [facility] CLIA [id number] [address] [place] [address] [facility] FASTING TIME 12 hrs Normal [facility] Comment on above: Order Comment: Speci men Type: BLOOD SPECIMEN Ordering Facility: [facility] Address: [address] [place] [address] Performed By: #### 2 4331-1 #### [facility] CLIA [id number] [address] [place] [address] [place] Triglyceride [Mass/Vol] 143 mg/dL Normal <150 [facility] Comment on above: Order Comment: Speci men Type: BLOOD SPECIMEN Ordering Facility: [facility] Address: [address], [place] [address] Result Comment: <150 mg/dL, Normal 150-199 mg/dL, Borderline high 200-499 mg/dL, High >499 mg/dL, Very high Performed By: #### 2 4331-1 #### [facility] CLIA [id number] [address] [place] [address] [facility] CNCOon 07-04-2024 CNCO Letter Text Normal [facility] CNPNon 07-04-2024 SLIM Telephone (AGFAMPLE) ELAINA RENE ([id number]) 1985 M [facility] Date Time Provider Department 07/04/24 TC ALY During your visit today, we recorded the following information about you: Nafisa Alvarez 07/04/2024 3:52 PM Signed No Show Documentation Elaina Rene no showed for an appointment on 07/04/2024 with Tc Aly APRN.CUT OFF SAW TENDER METAL at 2:40pm. He was scheduled for stomach [...] Known Allergies) Date Reviewed: 04/28/2023 Reviewed by: Queden, Joyce A, COMMUNICATIONS BILLING ANALYST.CUT OFF SAW TENDER METAL - Fully Assessed Reason for Visit: Missed Appointment [1304] Cmt: 1st no show in 365 days (1st letter sent) Problem List As Of Date 07/04/2024 Noted Resolved Social phobia [F40.10] 10/18/2014 Anxiety [F41.9] 10/18/2014 Nausea AND vomiting [R11.2] 10/18/2014 Residual hemorrhoidal skin tags [K64.4] 09/17/2022 Encounter Status:Closed by NAFISA ALVAREZ on 07/04/24 [facility] CNOVon 10-18-2022 CNOV Office Visit (UROLMD ) ELAINA RENE ([id number]) 1985 [facility] Date Time Provider Department 10/18/22 10:00 AM SHLOMO HAAS UROORTIZ During your visit today, we recorded the [...] numbers with any questions or concerns: Victor M?s Offices: #[phone], and also #[phone] [facility] patients: [phone] M-F 8am-5pm, after hours [phone] ACTIVITIES Avoid strenuous physical exercise and heavy [...] bleeding occu (more content not included)... Normal [facility] SURGICAL PATHOLOGYon 023 CASE REPORT Normal [facility] Comment on above: Order Comment: Speci men Type: TISSUE SPECIMEN Ordering Facility: [facility] Address: [address] [place] [address] Result Comment: Surg ica Pathology Report Case: [id number] Authorizing Provider: Shlomo Haas MD Collected: 10/18/2022 10:55 AM Ordering Location: Urology Received: 10/18/2022 03:33 PM Pathologist: Rody Arevalo MD Specimens: A) - VAS DEFERENS LEFT, 1 B) - VAS DEFERENS RIGHT, 1 Performed By: #### S #### [facility] CLIA [id number] [address] [place] [address] [place] CLINICAL HISTORY ENCOUNTER FOR VASECTOMY Normal [facility] Comment on above: Order Comment: Speci men Type: TISSUE SPECIMEN Ordering Facility: [facility] Address: [address] [place] [address] Performed By: #### S #### [facility] CLIA [id number] [address] FINAL DIAGNOSIS Normal [facility] Comment on above: Order Comment: Speci men Type: TISSUE SPECIMEN Ordering Facility: [facility] Address: [address] [place] [address] Result Comment: A. V as deferens, left, excision: - Complete cross-section of unremarkable vas deferens B. Vas deferens, right, excision: - Complete cross-section of unremarkable vas deferens. Performed By: #### S #### [facility] CLIA [id number] [address] [place] [address] FINAL PERFORMING LAB Normal [facility] Comment on above: Order Comment: Speci men Type: TISSUE SPECIMEN Ordering Facility: [facility] Address: [address] [place] [address] Result Comment: Diag nostic interpretation performed at [facility], [address] [place] [address] CLIA# [id number] Security Escort: Anoop Sierra M.D. Performed By: #### S #### [facility] CLIA [id number] [address] [place] [address] OF [facility] GROSS DESCRIPTION Normal [facility] Comment on above: Order Comment: Speci men Type: TISSUE SPECIMEN Ordering Facility: [facility] Address: [address] [place] [address] Result Comment: A. V DEFERENS LEFT Received [...] in one cassette. Gross examination performed at [facility], [address] [place] [address] October 19, 2022 8:39 AM Performed By: #### S #### [facility] CLIA [id number] [address] [place] [id number] CNPNon 08-24-2022 CNPN Telephone (UROLWS) ELAINA RENE ([id number]) 1985 M [facility] Date Time Provider Department 08/24/22 ELAINA STRICKLAND During your visit today, we recorded the following information about you: Estefany Gutierrez RN 08/24/2022 12:05 PM Signed Pt called [...] to schedule and transferred. 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 Visit: Massage Therapist - Other [6537] Problem List As Of Date 08/24/2022 Noted Resolved Social phobia [F40.10] 10/18/2014 Anxiety [F41.9] 10/18/2014 Nausea AND vomiting [R11.2] 10/18/2014 Encounter Status:Closed by ESTEFANY GUTIERREZ on 08/24/22 Normal [facility] CNOVon 06-15-2022 CNOV Office Visit (UROLWS ) ELAINA RENE ([id number]) 1985 M [facility] Date Time Provider Department 06/15/22 1:20 PM ELAINA STRICKLAND UROLSHARON During your visit today, we recorded the following information about you: Temperature Pulse Respiration Blood pressure 97.6 degrees 108/minute 16/minute 134/70 Weight Height 80.3 kg 1.829 m Elaina Strickland PA-C 06/15/2022 1:48 PM Signed Elaina Rene June 15, 2022 Referred by: CC: Desires [...] attests that he watched and understood the [facility] Vasectomy video and read and understood the [...] [118] Primary Visit Diagnosis:Vasectomy evaluation [Z30.09] Order(s):VASECTOMY [55952YYR] O (more content not included)... Normal [facility] 2019 ALP [Catalytic activity/Vol] 63 U/L Normal 45-117 [facility] Comment on above: Performed By: #### P 14 #### [address] [address] Protein [Mass/Vol] 7.1 g/dL Normal 6.4-8.2 [facility] Comment on above: Performed By: #### P 14 #### [facility] [address] [place], [place] [address] Bilirubin [Mass/Vol] 0.5 mg/dL Normal 0.2-1.0 [facility] Comment on above: Performed By: #### P 14 #### [facility] [address] [place], [place] [address] Creatinine [Mass/Vol] 0.83 mg/dL Normal 0.67-1.17 [facility] Comment on above: Performed By: #### P 14 #### [facility] [address] [place], [place] [address] ALT [Catalytic activity/Vol] 52 U/L Normal 12-78 [facility] Comment on above: Performed By: #### P 14 #### [facility] [address] [place], [place] [address] AST [Catalytic activity/Vol] 23 U/L Normal 15-37 [facility] Comment on above: Performed By: #### P 14 #### [facility] [address] [place], [place] [address] Albumin [Mass/Vol] 4.4 g/dL Normal 3.4-5.0 [facility] Comment on above: Performed By: #### P 14 #### [facility] [address] [place], [place] [address] Anion gap [Moles/Vol] 7 mmol/L Low 8-16 [facility] Comment on above: Performed By: #### P 14 #### [facility] [address] [place], [place] [address] Calcium [Mass/Vol] 9.4 mg/dL Normal 8.5-10.1 [facility] Comment on above: Performed By: #### P 14 #### [facility] [address] [place], [place] [address] CO2 [Moles/Vol] 27 mmol/L Normal 21-32 [facility] Comment on above: Performed By: #### P 14 #### [facility] [address] [place], [place] [address] Glucose [Mass/Vol] 96 mg/dL Normal 70-99 [facility] Comment on above: Performed By: #### P 14 #### [facility] [address] [place], [place] [address] Urea nitrogen [Mass/Vol] 17 mg/dL Normal 7-18 [facility] Comment on above: Performed By: #### P 14 #### [facility] [address] [place], [place] [address] Chloride [Moles/Vol] 109 mmol/L High 98-107 [facility] Comment on above: Performed By: #### P 14 #### [facility] [address] [place], [place] [address] Potassium [Moles/Vol] 4.4 mmol/L Normal 3.5-5.1 [facility] Comment on above: Performed By: #### P 14 #### [facility] [address] [place], [place] [address] Sodium [Moles/Vol] 139 mmol/L Normal 136-145 [facility] Comment on above: Performed By: #### P 14 #### [facility] [address] [place], [place] [address] Hemoglobin A1Con 08-06-2019 HbA1c (Bld) [Mass fraction] 5.3 % Normal 4.5-6.2 [facility] Comment on above: Performed By: #### L A1C #### [facility] [address] [place], [place] [address] HbA1c (Bld) [Mass fraction] 105 mg/dl Normal [facility] Comment on above: Performed By: #### L A1C #### [facility] [address] [place] [address] Hemogramon 08-06-2019 Erythrocyte distribution width (RBC) [Ratio] 13.0 % Normal 11.5-15.9 [facility] Comment on above: Performed By: #### L CBC #### [facility] [address] [place] [address] Hematocrit (Bld) [Volume fraction] 45.6 % Normal 42.0-52.0 [facility] Comment on above: Performed By: #### L CBC #### [facility] [address] [place] [address] Hemoglobin (Bld) [Mass/Vol] 15.2 g/dL Normal 14.0-18.0 [facility] Comment on above: Performed By: #### L CBC #### [facility] [address] [place] [address] MCH (RBC) [Entitic mass] 28.6 pg Normal 27.0-31.0 [facility] Comment on above: Performed By: #### L CBC #### [facility] [address] [place] [address] MCHC (RBC) [Mass/Vol] 33.3 % Normal 32.0-36.0 [facility] Comment on above: Performed By: #### L CBC #### [facility] [address] [place] [address] MCV (RBC) [Entitic vol] 85.9 fL Normal 80.0-94.[address] [facility] Comment on above: Performed By: #### L CBC #### [facility] [address] [place] [address] Platelet mean volume (Bld) [Entitic vol] 10.3 fL Normal 7.1-10.5 [facility] Comment on above: Performed By: #### L CBC #### [facility] [address] [place] [id number] Platelets (Bld) [#/Vol] 213 thou/cmm Normal 150-400 [facility] Comment on above: Performed By: #### L CBC #### [place] [address] RBC (Bld) [#/Vol] 5.31 mil/cmm Normal 4.60-6.20 [facility] Comment on above: Performed By: #### L CBC #### [place] [address] WBC (Bld) [#/Vol] 9.4 thou/cmm Normal 4.8-10.5 [facility] Comment on above: Performed By: #### L CBC #### [place] [address] MDRD GFRon 08-06-2019 GFR/1.73 sq M predicted among non-blacks MDRD (S/P/Bld) [Vol rate/Area] mL/min/{1.73_m2} Normal >60mL/min/1.7 3m2 [facility] Comment on above: Result Comment: If t he patient is , multiply the result by 1.210. Performed By: #### G FR #### [place] [address] PSA Screenon 08-06-2019 PSA Screen 1.1 ng/mL Normal 0.0-3.9 [facility] Comment on above: Performed By: #### L PSAS #### [place] [id number] Vital Signs Date Time Vital Sign Value Performing Clinician Facility 04-01-2025 10:14040 Body height 182.88 cm No Primary Care Physician [facility] 04-01-2025 10:140400 Body mass index (BMI) [Ratio] 26.4 kg/m2 No Primary Care Physician [facility] 04-01-2025 10:14-0400 Body temperature 98 [degF] No Primary Care Physician [facility] 04-01-2025 10:14-0400 Body weight 88.5 kg No Primary Care Physician [facility] 04-01-2025 10:14-0400 Diastolic blood pressure 74 mm[Hg] No Primary Care Physician [facility] 04-01-2025 10:14-0400 Heart rate 72 /min No Primary Care Physician [facility] 04-01-2025 10:14-0400 Respiratory rate 18 /min No Primary Care Physician [facility] 04-01-2025 10:14-0400 SaO2% (BldA) [Mass fraction] 99 % No Primary Care Physician [facility] 04-01-2025 10:14-0400 Systolic blood pressure 116 mm[Hg] No Primary Care Physician [facility] 12-13-2024 10:08-0400 Body height 182.88 cm No Primary Care Physician [facility] 12-13-2024 10:08-0400 Body mass index (BMI) [Ratio] 25.2 kg/m2 No Primary Care Physician [facility] 12-13-2024 10:08-0400 Body weight 84.53 kg No Primary Care Physician [facility] 12-13-2024 10:08-0400 Diastolic blood pressure 72 mm[Hg] No Primary Care Physician [facility] 12-13-2024 10:08-0400 Heart rate 57 /min No Primary Care Physician [facility] 12-13-2024 10:08-0400 Respiratory rate 16 /min No Primary Care Physician [facility] 12-13-2024 10:08-0400 SaO2% (BldA) [Mass fraction] 98 % No Primary Care Physician [facility] 12-13-2024 10:08-0400 Systolic blood pressure 112 mm[Hg] No Primary Care Physician [facility] 11-22-2024 11:33-0400 Body temperature 97.2 [degF] No Primary Care Physician [facility] 11-22-2024 11:33-0400 Diastolic blood pressure 66 mm[Hg] No Primary Care Physician [facility] 11-22-2024 11:33-0400 Heart rate 66 /min No Primary Care Physician [facility] 11-22-2024 11:33-0400 Respiratory rate 16 /min No Primary Care Physician [facility] 11-22-2024 11:33-0400 SaO2% (BldA) [Mass fraction] 100 % No Primary Care Physician [facility] 11-22-2024 11:33-0400 Systolic blood pressure 106 mm[Hg] No Primary Care Physician [facility] 11-22-2024 09:33-0400 Body mass index (BMI) [Ratio] 24.7 kg/m2 No Primary Care Physician [facility] 11-22-2024 09:33-0400 Body weight 82.55 kg No Primary Care Physician [facility] 09-12-2024 10:38-0500 Body height 182.88 cm No Primary Care Physician [facility] 09-12-2024 10:38-0500 Body mass index (BMI) [Ratio] 25.2 kg/m2 No Primary Care Physician [facility] 09-12-2024 10:38-0500 Body weight 84.36 kg No Primary Care Physician [facility] 09-12-2024 10:38-0500 Diastolic blood pressure 83 mm[Hg] No Primary Care Physician [facility] 09-12-2024 10:38-0500 Heart rate 98 /min No Primary Care Physician [facility] 09-12-2024 10:38-0500 Respiratory rate 18 /min No Primary Care Physician [facility] 09-12-2024 10:38-0500 SaO2% (BldA) [Mass fraction] 98 % No Primary Care Physician [facility] 09-12-2024 10:38-0500 Systolic blood pressure 128 mm[Hg] No Primary Care Physician [facility] 07-24-2024 10:24-0500 Body height 182.9 cm Joyce Cullen APRN.[employer] OFF [employer] Work Phone: [facility] 07-24-2024 10:24-0500 Body mass index (BMI) [Ratio] 24.95 kg/m2 Joyce Cullen COMMUNICATIONS BILLING ANALYST.[employer] Work Phone: [facility] 07-24-2024 10:24-0500 Body temperature 97.5 [degF] Joyce Queden COMMUNICATIONS BILLING ANALYST.[employer] Work Phone: [facility] 07-24-2024 10:24-0500 Body weight 83.46 kg Joyce Queden COMMUNICATIONS BILLING ANALYST.C[employer] Work Phone: [facility] 07-24-2024 10:24-0500 Diastolic blood pressure 70 mm[Hg] Joyce Queden COMMUNICATIONS BILLING ANALYST.C[employer] Work Phone: [facility] 07-24-2024 10:24-0500 Heart rate 75 /min Joyce Queden COMMUNICATIONS BILLING ANALYST.[employer] Work Phone: [facility] 07-24-2024 10:24-0500 Respiratory rate 16 /min Joyce Queden COMMUNICATIONS BILLING ANALYST.C[employer] Work Phone: [facility] 07-24-2024 10:24-0500 SaO2% (BldA) [Mass fraction] 97 % Joyce Queden COMMUNICATIONS BILLING ANALYST.C[employer] Work Phone: [facility] 07-24-2024 10:24-0500 Systolic blood pressure 116 mm[Hg] Joyce Queden COMMUNICATIONS BILLING ANALYST.C[employer] Work Phone: [facility] 04-28-2023 10:27-0400 Body height 182.9 cm Joyce Queden COMMUNICATIONS BILLING ANALYST.C[employer] Work Phone: [facility] 04-28-2023 10:27-0400 Body temperature 97.59 [degF] Joyce Queden COMMUNICATIONS BILLING ANALYST.C[employer] Work Phone: [facility] 04-28-2023 10:27-0400 Body weight 81.65 kg Joyce Queden COMMUNICATIONS BILLING ANALYST.C[employer] Work Phone: [facility] 04-28-2023 10:27-0400 Diastolic blood pressure 60 mm[Hg] Joyce Queden COMMUNICATIONS BILLING ANALYST.C[employer] OFF [employer] Work Phone: [facility] 04-28-2023 10:27-0400 Heart rate 60 /min Joyce Queden COMMUNICATIONS BILLING ANALYST.C[employer] OFF [employer] Work Phone: [facility] 04-28-2023 10:27-0400 Respiratory rate 18 /min Joyce Cullen COMMUNICATIONS BILLING ANALYST.C[employer] Work Phone: [facility] 04-28-2023 10:27-0400 SaO2% (BldA) [Mass fraction] 98 % Joyce Cullen COMMUNICATIONS BILLING ANALYST.C[employer] OFF [employer] Work Phone: [facility] 04-28-2023 10:27-0400 Systolic blood pressure 102 mm[Hg] Joyce Cullen COMMUNICATIONS BILLING ANALYST.C[employer] Work Phone: [facility] 10-18-2022 10:14-0400 Body height 182.9 cm Shlomo Haas MD Work Phone: [facility] 10-18-2022 10:14-0400 Body weight 82.1 kg Shlomo Haas MD Work Phone: [facility] 10-18-2022 10:14-0400 Diastolic blood pressure 69 mm[Hg] Shlomo Haas MD Work Phone: [facility] 10-18-2022 10:14-0400 Heart rate 86 /min Shlomo Haas MD Work Phone: [facility] 10-18-2022 10:14-0400 Respiratory rate 18 /min Shlomo Haas MD Work Phone: [facility] 10-18-2022 10:14-0400 Systolic blood pressure 101 mm[Hg] Shlomo Haas MD Work Phone: [facility] 09-17-2022 10:05-0500 Body height 182.9 cm Tc Aly COMMUNICATIONS BILLING ANALYST.C[employer] OFF [employer] Work Phone: [facility] 09-17-2022 10:05-0500 Body temperature 97.59 [degF] Tc Aly COMMUNICATIONS BILLING ANALYST.C[employer] OFF [employer] Work Phone: [facility] 09-17-2022 10:05-0500 Body weight 81.65 kg Tc Aly COMMUNICATIONS BILLING ANALYST.C[employer] OFF [employer] Work Phone: [facility] 09-17-2022 10:05-0500 Diastolic blood pressure 58 mm[Hg] Tc Aly APRN.C[employer] Work Phone: [facility] 09-17-2022 10:05-0500 Heart rate 78 /min Tc Aly COMMUNICATIONS BILLING ANALYST.C[employer] OFF [employer] Work Phone: [facility] 09-17-2022 10:05-0500 SaO2% (BldA) [Mass fraction] 98 % Tc Aly COMMUNICATIONS BILLING ANALYST.CUT OFF [employer] Work Phone: [facility] 09-17-2022 10:05-0500 Systolic blood pressure 104 mm[Hg] Tc Aly COMMUNICATIONS BILLING ANALYST.C[employer] OFF [employer] Work Phone: [facility] Encounters Encounter Date Encounter Type Care Provider Facility Start: 04-18-2025 ambulatory Tc Lindsey ty:[facility] Start: 04-01-2025 End: 04-01-[address] Jonathan Antonio MD -[facility] Work Phone: Start: 04-01-2025 End: 04-01-2025 ambulatory No Primary Care Physician -[facility] Start: 02-07-2025 End: 02-07-2025 Patient encounter procedure Bess LANDIS -[facility] Work Phone: Start: 02-07-2025 End: 02-07-2025 ambulatory Tc Aly NP-C Work Phone: -[facility] Start: 01-28-2025 End: 01-28-2025 ambulatory Tc Aly NP-C Work Phone: -[facility] Start: 01-28-2025 End: 01-28-2025 Patient encounter procedure Bess LANDIS -[facility] Work Phone: Start: 01-28-2025 End: 01-28-2025 ambulatory Bess Leigh Facility:[facility] Start: 12-31-2024 End: 12-31-2024 ambulatory No Primary Care Physician [facility] Work Phone: Start: 12-31-2024 End: 12-31-2024 Patient encounter procedure Bess LOPEZC -Laboratory Work Phone: Start: 12-31-2024 End: 12-31-2024 ambulatory Bess Leigh Facility:[facility] Start: 12-13-2024 End: 12-13-2024 Patient encounter procedure Bess Leigh NP-C -[facility] Work Phone: Start: 12-13-2024 End: 12-13-2024 ambulatory Bess Leigh Facility:[facility] Start: 11-22-2024 ambulatory Tc Aly NP Facili ty:[facility] Start: 11-22-2024 Non-patient / Non-visit Jignesh Paulson nd DO -[facility] Start: 11-22-2024 End: 11-22-2024 Admission to same day surgery center Jignesh Hampton DO -Endoscopy Work Phone: Start: 11-22-2024 End: 11-22-2024 ambulatory Tc Aly NP Facility:[facility] Start: 10-03-2024 End: 10-03-2024 ambulatory No Primary Care Physician [facility] Work Phone: Start: 10-03-2024 End: 10-03-2024 Patient encounter procedure Bess LANDIS -[facility] Work Phone: Start: 10-03-2024 End: 10-03-2024 ambulatory Bess Leigh Facility:[facility] Start: 09-12-2024 End: 09-12-2024 Patient encounter procedure Bess LOPEZC -[facility] Work Phone: Start: 09-12-2024 End: 09-12-2024 ambulatory Bess Leigh Facility:[facility] Start: 09-12-2024 End: 09-12-2024 ambulatory Bess Leigh Facility:[facility] Start: 08-22-2024 End: 08-22-2024 Telephone encounter Tc Aly COMMUNICATIONS BILLING ANALYST.C[employer] OFF [employer] Work Phone: [facility] Comment on above: faxed referral (Faxe d referral to Dr. Hampton) Start: 07-26-2024 End: 07-26-2024 Telephone encounter Joyce A Alyse FREDERICK Work Phone: [facility] Comment on above: Results Start: 07-24-2024 End: 07-24-2024 Patient encounter procedure Joyce Cullen COMMUNICATIONS BILLING ANALYST.C[employer] Work Phone: [facility] Comment on above: Rectal bleeding (Rosalinda leonie Dx); Generalized abdominal pain; Hemorrhoids, unspecified hemorrhoid type; Screening for lipid disorders Start: 07-24-2024 End: 07-24-2024 ambulatory TC ALY Facility:[facility] Start: 07-04-2024 End: 07-04-2024 Telephone encounter Tc Aly APRN.CNP Work Phone: [facility] Comment on above: Missed Appointment ( 1st no show in 365 days (1st letter sent)) Start: 04-28-2023 End: 04-28-2023 Patient encounter procedure Joyce Cullen COMMUNICATIONS BILLING ANALYST.KEY Work Phone: [facility] Comment on above: Umbilical hernia wit hout obstruction and without gangrene (Primary Dx); Rectal bleeding; Hemorrhoids, unspecified hemorrhoid type; Lower abdominal pain Start: 12-22-2022 Telephone encounter Tc Aly APRN.C[employer] Work Phone: [facility] Comment on above: Referral Request ( iend is requesting referral for Elaina) Start: 11-25-2022 End: 11-25-2022 ambulatory Genevieve Juliette BORGES Work Phone: [facility] Comment on above: Rectal bleeding (Rosalinda leonie Dx); Periumbilical abdominal pain Start: 11-25-2022 End: 11-25-2022 Telemedicine consultation with patient Genevieve Juliette BORGES Work Phone: [facility] Start: 10-18-2022 End: 10-18-2022 ambulatory [facility] Facility:[facility] Start: 10-18-2022 End: 10-18-2022 Patient encounter procedure Shlomo Haas MD Work Phone: Urology Comment on above: Encounter for steril ization (Primary Dx) Start: 09-29-2022 Telephone encounter Tc Aly APRN.CUT OFF [employer] Work Phone: [facility] Comment on above: Results Start: 09-20-2022 Telephone encounter Leonie Altamirano MA [facility] Comment on above: Medication Problem Start: 09-17-2022 End: 09-17-2022 Patient encounter procedure Tc Aly APRN.CUT OFF [employer] Work Phone: [facility] Comment on above: Rectal bleeding (Rosalinda leonie Dx); Rectal pain; Lower abdominal pain; Depression screening; Special screening examination for viral disease; Screening for HIV (human immunodeficiency virus); Screening for diabetes mellitus; Screening for prostate cancer; Screening for lipid disorders; Thyroid disorder screening; Residual hemorrhoidal skin tags Start: 08-24-2022 Telephone encounter Elaina rodriguez PA-C Work Phone: Urology Comment on above: Massage Therapist - O ther Start: 06-15-2022 End: 06-16-2022 ambulatory ELAINA EM Facility:[facility] Procedures Date Procedure Procedure Detail Performing Clinician Start: 01-28-2025 Radionuclide study of abdomen Tc LOPEZC Work Phone: Start: 12-31-2024 Hepatitis A virus an tibody, total measurement No Primary Care Physician Comment on above: Comment: The HAV tot al antibody assay detects both IgG andIgM but does not differentiate between them. A negativeresult suggests susceptibility to infection. A positiveresult could be due to vaccination, previously resolvedinfection or active infection. Testing for HAV IgM shouldbe performed if active HAV infection is suspected. Labcorpoffers profiles that will automatically reflex positive HAVtotal antibody results to IgM (e.g., panel #[id number] HAVAntibody w/ Rfx).Performed at: [address] [id number] Director: Omkar Harris PhD, Phone: [phone] Start: 12-31-2024 Hepatitis C antibody measurement No Primary Care Physician Comment on above: Reactive: Presumptiv e evidence of antibodies to HCV. Follow CDC recommendations for supplemental testing.Non-Reactive: Antibodies to HCV were not detected; does not exclude the possibility of exposure to HCVReactive Results are presumptive evidence of antibodies to HCV. Follow CDC recommendations for supplemental testing.Order confirmation testing: HCV Quant by PCR testing - HCVPCR #[id number] Non Reactive: < 0.8 Equivocal: >/= 0.8 to < 1.0 Reactive: >/= 1.0The CDC requires that a reactive/equivocal HCV antibody result be sent out for confirmation. HCV Quant by PCR testing. Start: 12-31-2024 Procedure No Primary Care Physician Comment on above: Test Ordered: [id number] Enhanced Liver Fibrosis (ELF)ELF(TM) Score 8.00 BN Reference Range: <9.80ELF(TM) Score Interpretation:Risk cut-offs to assess the likelihood of progressionto cirrhosis and liver-related clinical events within3.9 years following baseline ELF score (IQR: 14.0-22.4months)*: Lower risk < 9.80 Mid risk 9.80 - 11.29 Higher risk >11.29Note: The ELF(TM) Score is a unitless numerical value.*Clifford SA, Kelvin VW, Agustina T, et al. Selonsertibfor patients with bridging fibrosis or compensatedcirrhosis due to JEAN: Results from randomized phaseIII STELLAR trials. J Hepatol. 2020 Jan;73(1):26-39.Performed at: [facility] [address] [id number] Director: Elmo Stiles MD, Phone: [phone] at: [facility] [id number] Director: Omkar Harris PhD, Phone: [phone] Start: 10-03-2024 Ultrasonography of abdomen No Primary Care Physician Start: 09-12-2024 Measurement of renal function No Primary Care Physician Comment on above: GFR Calc Start: 07-24-2024 Lipid 1996 panel - S chris or Plasma Joyce Cullen APRN.CUT OFF [employer] Work Phone: Start: 09-28-2022 Lipid 1996 panel - S chris or Plasma Joyce Cullen COMMUNICATIONS BILLING ANALYST.CUT OFF [employer] Work Phone: Plan of Treatment Date Care Activity Detail Author Start: 07-24-2029 Lipid panel Lipid Screening [facility] Start: 09-29-2027 Lipid 1996 panel - Serum or Plasma Lipid Screening [facility] Start: 09-29-2027 Lipid panel Lipid Screening [facility] Start: 09-29-2027 LIPID SCREEN LIPID SCREEN [facility] Start: 11-22-2024 Colonoscopy flx dx w/collj spec when pfrmd DIAGNOSTIC COLONOSCOPY [facility] Start: 11-22-2024 Patient discharge [facility] Start: 07-24-2024 End: 10-23-2024 CBC W Auto Differential panel - Blood COMPLETE BLOOD COUNT AND DIFFERENTIAL Lab Routine Rectal bleeding Hemorrhoids, unspecified hemorrhoid type Expected: 07/24/2024, Expires: 10/23/2024 [facility] Work Phone: Comment on above: Expected: 07/24/2024 , Expires: 10/23/2024 Start: 07-24-2024 End: 10-23-2024 Comprehensive metabolic 2000 panel - Serum or Plasma COMPREHENSIVE METABOLIC PANEL Lab Routine Generalized abdominal pain Expected: 07/24/2024, Expires: 10/23/2024 [facility] Comment on above: Expected: 07/24/2024 , Expires: 10/23/2024 Start: 07-24-2024 End: 10-23-2024 Thyrotropin [Units/volume] in Serum or Plasma THYROID STIMULATING HORMONE Lab Routine Generalized abdominal pain Expected: 07/24/2024, Expires: 10/23/2024 [facility] Comment on above: Expected: 07/24/2024 , Expires: 10/23/2024 Start: 07-24-2024 End: 07-24-2024 Patient encounter procedure 07/24/2024 10:20 AM EST Office Visit [facility] [address] [place] [address] Joyce Cullen APRN.CUT OFF [employer] [address] [place] [address] stomach [facility] Comment on above: stomach [facility] Start: 03-25-2024 Covid-19 Vaccine ( season) Covid-19 Vaccine () [facility] Start: 03-25-2024 Influenza vaccination Influenza Vacc ine (#1) [facility] Start: 09-17-2023 COVID-19 VACCINE (#1) COVID-19 VACCI NE (#1) [facility] Comment on above: Postponed from 12/23 (Declined at this time) Start: 03-25-2023 Influenza vaccination C [facility] Start: 01-18-2023 End: 10-19-2023 POST VASEC SCREEN POST VASEC SCREEN Andrology Routine Encounter for sterilization Expected: 01/18/2023, Expires: 10/19/2023 [facility] Work Phone: Comment on above: Expected: 01/18/2023 , Expires: 10/19/2023 Start: 09-17-2022 End: 11-17-2022 CBC panel - Blood by Automated count CBC Lab Routine Rectal bleeding Rectal pain Lower abdominal pain Expected: 09/17/2022, Expires: 11/17/2022 [facility] Work Phone: Comment on above: Expected: 09/17/2022 , Expires: 11/17/2022 Start: 09-17-2022 End: 11-17-2022 Comprehensive metabolic 2000 panel - Serum or Plasma COMP METABOLIC PANEL Lab Routine Rectal bleeding Rectal pain Lower abdominal pain Expected: 09/17/2022, Expires: 11/17/2022 [facility] Work Phone: Comment on above: Expected: 09/17/2022 , Expires: 11/17/2022 Start: 09-17-2022 End: 11-17-2022 Hemoglobin A1c in Blood HGB A1C Lab Routine Screening for diabetes mellitus Expected: 09/17/2022, Expires: 11/17/2022 [facility] Work Phone: Comment on above: Expected: 09/17/2022 , Expires: 11/17/2022 Start: 09-17-2022 End: 11-17-2022 Hepatitis C virus Ab [Presence] in Serum HEP C AB IA W/CONF SCRN Lab Routine Special screening examination for viral disease Expected: 09/17/2022, Expires: 11/17/2022 [facility] Work Phone: Comment on above: Expected: 09/17/2022 , Expires: 11/17/2022 Start: 09-17-2022 End: 11-17-2022 HIV 1+2 Ab [Presence] in Serum or Plasma by Immunoassay HIV 1 2 COMBO(AG/AB),WITH REFLEX TO DIFFERENTIATION Lab Routine Screening for HIV (human immunodeficiency virus) Expected: 09/17/2022, Expires: 11/17/2022 [facility] Work Phone: Comment on above: Expected: 09/17/2022 , Expires: 11/17/2022 Start: 09-17-2022 End: 11-17-2022 Lipid 1996 panel - Serum or Plasma LIPID PANEL BASIC Lab Routine Screening for lipid disorders Expected: 09/17/2022, Expires: 11/17/2022 [facility] Work Phone: Comment on above: Expected: 09/17/2022 , Expires: 11/17/2022 Start: 09-17-2022 End: 11-17-2022 PSA/PROSTSPECAG SCRN PSA/PROSTSPECAG SCRN Lab Routine Screening for prostate cancer Expected: 09/17/2022, Expires: 11/17/2022 [facility] Work Phone: Comment on above: Expected: 09/17/2022 , Expires: 11/17/2022 Start: 09-17-2022 End: 11-17-2022 Thyrotropin [Units/volume] in Serum or Plasma TSH BLD Lab Routine Thyroid disorder screening Expected: 09/17/2022, Expires: 11/17/2022 [facility] Work Phone: Comment on above: Expected: 09/17/2022 , Expires: 11/17/2022 Start: 07-25-2022 DEPRESSION ASSESSMENT DEPRESSION ASS ESSMENT [facility] Start: 03-25-2022 Influenza vaccination INFLUENZA (#1) [facility] Start: 12-15-2021 LIPID SCREEN LIPID SCREEN [facility] Start: 2005 Hepatitis B Vaccine (1 of 3 - 19+ 3-dose series) Hepatitis B Vaccine (1 of 3 - 19+ 3-dose series) [facility] Start: 2005 Urine microalbumin profile [facility] Start: 2004 Depression Screening Depression Scre ening [facility] Start: 2004 HEPATITIS C SCREENING HEPATITIS C SC REENING [facility] Start: 2004 HIV SCREENING HIV SCREENING [facility] Start: 1986 COVID-19 VACCINE (#1) COVID-19 VACCI NE (#1) [facility] Start: 1986 HEPATITIS B (1 of 3 - 3-dose series) HEPATITIS B (1 of 3 - 3-dose series) [facility] Start: 1986 Hepatitis B Vaccine (1 of 3 - 3-dose series) Hepatitis B Vaccine (1 of 3 - 3-dose series) [facility] End: 11-26-2023 COLONOSCOPY DIAGNOSTIC COLONOSCOPY DIAGNOSTIC Endoscopy Routine Rectal bleeding 1 Occurrences starting 11/25/2022 until 11/26/2023 [facility] Work Phone: Comment on above: 1 Occurrences starti ng 11/25/2022 until 11/26/2023 Patient referral [facility] Work Phone: Radionuclide study o f abdomen [facility] SURGICAL PATHOLOGY SURGICAL PATH OLOGY Lab Routine Encounter for sterilization 10/18/2022 10:55 AM EDT [facility] Work Phone: End: 12-25-2023 XR ABDOMEN 2V ROUTINE SUPINE W UPRIGHT/DECUB/CTL XR ABDOMEN 2V ROUTINE SUPINE W UPRIGHT/DECUB/CTL Radiology Routine Periumbilical abdominal pain 1 Occurrences starting 11/25/2022 until 12/25/2023 [facility] Work Phone: Comment on above: 1 Occurrences starti ng 11/25/2022 until 12/25/2023 [facility] Payers Date Payer Category Payer Self-pay 2018 Medicaid [id number] 2018 Medicaid [id number] 2018 Medicare [employer] [id number] 2018-Present [phone] [address] [place] [address] Medicare [id number] 2018 Medicaid [id number] Self-pay [id number] Unknown [id number] Unknown [id number] Unknown [id number] Unknown [id number] Unknown [id number] Unknown [id number] Unknown [id number] Unknown [id number] Unknown [id number] Unknown [id number] Unknown [id number] Social History Date Type Detail Facility Start: 10-18-2014 End: 10-18-2022 Tobacco smoking status NHIS Ex-smoker [facility] Work Phone: History of tobacco use Current smoker [facility] Work Phone: Start: 10-18-2014 End: 10-18-2022 Tobacco use and exposure Smokeless tobacco non-user [facility] Work Phone: Start: 06-15-2022 End: 10-18-2022 Alcohol intake Current non-drinker of alcohol (finding) [facility] Start: 10-18-2014 End: 10-18-2022 Tobacco Comment quit in 2011 [facility] Start: 1986 Sex Assigned At Not on file C [facility] Start: 04-28-2023 Alcohol intake Current drinke r of alcohol (finding) [facility] Start: 11-25-2022 End: 04-28-2023 History of Social function [facility] Work Phone: Start: 11-25-2022 End: 04-28-2023 Tobacco use panel [facility] Work Phone: Adult Depression Screening Assessment 0 [facility] Work Phone: Start: 07-24-2024 Alcoholic beverage intake Ex-drinker (finding) [facility] Start: 07-24-2024 Alcohol Comment occ. [facility] Start: 09-12-2024 End: 04-01-2025 Tobacco smoking status NHIS Smokes tobacco daily (finding) [facility] Start: 10-11-2024 Sex Male (finding) [facility] Start: 1985 Sex Assigned At Male W [facility] Goals Date Patient Goal Desired Activity /State Mental Status Date Assessment Result Facility 11-22-2024 Cognitive function Voice/Name [facility] Work Phone: Clinical Notes 06-15-2022 to 04-01-2025 Note Date & Type Note Facility 04-01-2025 Progress note Note Date/Time April 01, 2025 11:35am [facility] [address] [place] [address] OFFICE VISIT Date of Service: 04/01/25 MR#: [id number] Acct: [id number] Name: ELAINA RENE AM Rep #: [id number] : 1985 Provider: Dr. Gunner Antonio MD Age/Sex: 39/M Location: [facility] Status: Signed Intake Vital Signs 12/13/24 10:08 04/01/25 10:14 Height 6 ft 6 ft Weight: 195 lb 2 oz BMI 26.4 BP 116/74 Blood Pressure Location Rt brachial Position Sitting Respiration 18 Pulse 72 Pulse Source Monitor Temp 98.0 F Temp Source Temporal Pulse Oximetry (%) 99 Oxygen Delivery Method room air Intake Visit Reasons: ABNORMAL HIDA & HEMORRHOIDS Chief Complaint: abnormal hida and hemorrhoids Is patient in pain?: No Allergies No Known Allergies Allergy (Verified 04/01/25 10:15) Medications ?Medication ?Instructions ?Recorded ?Confirmed ?Type pantoprazole 40 mg tablet,delayed 40 mg PO QDAY #90 ta bs 02/07/25 04/01/25 Rx release Diltiazem 2% / Lidocaine 5% #1 ea 02/15/25 04/01/25 Rx ointment (compound) (Diltiazem 2%/Lidocaine 5% ointment (compound)) PFSH Medical History Abnormal biliary HIDA scan Wears glasses Depression Anxiety Marijuana use Fatty liver High cholesterol Migraine headache Non-smoker Surgical History Enlarged adenoids History of wisdom tooth extraction Social History (Updated 04/01/25 @ 10:14 by Rosemarie Arzola LPN) Smoking Status: Current every day smoker tobacco type: cigarettes alcohol intake: never substance use type: does not use HPI HPI HPI: The patient is a 39-year-old male who presents today with 2 main complaints. His biggest complaint is symptomatic hemorrhoids. He states that he typically notices blood with bowel movements pretty much on a daily basis. He denies any significant issues with constipation or straining. He had a colonoscopy just a few months ago that just showed hemorrhoids. Patient also with periodic right upper quadrant pain and an abnormal HIDA scan. He states that this pain is typically in the right upper quadrant also on a mostly daily basis. He has not really noticed any significant worsening with eating. He has been referred for evaluation and treatment recommendations of these 2 issues. ROS General General: Yes fatigue; No weight change, appetite, colon cancer, breast cancer or weakness HEENT HEENT: No difficulty swallowing, eye injury, eye surgery, swollen glands or hoarseness Endo Endocrine: No thyroid disease, diabetes mellitus, thyroid cancer, Hair loss, heat intolerance or cold intolerance Skin Skin: No rash or changing moles Musc Musculoskeletal: Yes back problems; No arthritis, rheumatoid arthritis, gout or joint pain Cardio Cardiovascular: No murmur, pacemaker, heart disease, atrial fibrillation, high blood pressure, heart attack, heart stent, palpitations, shortness of breath with exertion or chest pain Psych Psychiatric: Yes anxiety; No depression or hearing voices Resp Respiratory: No shortness of breath, No sleep apnea, No cough, No COPD, No asthma, No emphysema and No wheezing Gastro Gastrointestinal: Yes abdominal pain, No nausea or vomiting, No diarrhea, No constipation, Yes blood in stool, No acid reflux, Yes hemorrhoids, No ulcers, Yes gallbladder problem and No black,tarry stools Jose Luis Hematologic: No blood thinners, No blood disorders, No bleeding, No anemia and No blood clots Neuro Neurologic: No numbness, No tingling and No weakness Exam Const General: cooperative, comfortable, no acute distress and well developed HENVA Head: normal to inspection Eyes General: appearance normal, both eyes and all related structures Neck Neck: normal visual inspection Resp Effort & Inspection: normal respiratory effort and able to speak in complete sentences GI Inspection: normal to inspection Other: Perirectal examination revealed fairly typical appearing external hemorrhoids however his internal hemorrhoids do appear swollen and inflamed. I suspect someare prolapsing at times as well based on their appearance Assessment and Plan Assessment and Plan (1) Abnormal biliary HIDA scan: Status: Acute (2) Hemorrhoids: Status: Acute Plan: The patient is a 39-year-old male with symptomatic internal hemorrhoids as well as biliary dyskinesia. Patient admits that his hemorrhoids are probably the more problematic issue. I would not recommend surgical intervention on both issues at the same time. I have recommended that we begin with a Doppler guidedhemorrhoid artery ligation to address his internal hemorrhoids. We discussed the details of the planned procedure and he wishes to proceed. We can certainlyproceed with cholecystectomy after he recovers from the hemorrhoid surgery. He is agreeable this plan. In the meantime I recommended a low fat diet Coding Level of Care Code Off vis,new,level 4 Diagnoses Abnormal biliary HIDA scan R94.8 Hemorrhoids K64.9 04/01/25 1135 <Electronically signed by Jonathan bhatt MD> Date _ Jonathan Antonio MD [facility] Signature: Date (if applicable) CC: SNAKE CHARMERStephenie Leigh; MATT-Amie Aly ~ [facility] Work Phone: 1(438) 128-309709-08-2025 Progress [facility] [address] [place], [place] [address] OFFICE VISIT Date of Service: 04/01/25 MR#: [id number] Acct: [id number] Name: ELAINA RENE BIANCA Rep #: [id number] : 1985 Provider: Dr. Gunner Antonio MD Age/Sex: 39/M Location: [facility] Status: Signed Intake Vital Signs 12/13/24 10:08 04/01/25 10:14 Height 6 ft 6 ft Weight: 195 lb 2 oz BMI 26.4 BP 116/74 Blood Pressure Location Rt brachial Position Sitting Respiration 18 Pulse 72 Pulse Source Monitor Temp 98.0 F Temp Source Temporal Pulse Oximetry (%) 99 Oxygen Delivery Method room air Intake Visit Reasons: ABNORMAL HIDA & HEMORRHOIDS Chief Complaint: abnormal hida and hemorrhoids Is patient in pain?: No Allergies No Known Allergies Allergy (Verified 04/01/25 10:15) Medications ?Medication ?Instructions ?Recorded ?Confirmed ?Type pantoprazole 40 mg tablet,delayed 40 mg PO QDAY #90 ta bs 02/07/25 04/01/25 Rx release Diltiazem 2% / Lidocaine 5% #1 ea 02/15/25 04/01/25 Rx ointment (compound) (Diltiazem 2%/Lidocaine 5% ointment (compound)) PFSH Medical History Abnormal biliary HIDA scan Wears glasses Depression Anxiety Marijuana use Fatty liver High cholesterol Migraine headache Non-smoker Surgical History Enlarged adenoids History of wisdom tooth extraction Social History (Updated 04/01/25 @ 10:14 by Rosemarie Arzola LPN) Smoking Status: Current every day smoker tobacco type: cigarettes alcohol intake: never substance use type: does not use HPI HPI HPI: The patient is a 39-year-old male who presents today with 2 main complaints. His biggest complaint is symptomatic hemorrhoids. He states that he typically notices blood with bowel movements pretty much on a daily basis. He denies any significant issues with constipation or straining. He had a colonoscopy just a few months ago that just showed hemorrhoids. Patient also with periodic right upper quadrant pain and an abnormal HIDA scan. He states that this pain is typically in the right upper quadrant also on a mostly daily basis. He has not really noticed any significant worsening with eating. He has been referred for evaluation and treatment recommendations of these 2 issues. ROS General General: Yes fatigue; No weight change, appetite, colon cancer, breast cancer or weakness HEENT HEENT: No difficulty swallowing, eye injury, eye surgery, swollen glands or hoarseness Endo Endocrine: No thyroid disease, diabetes mellitus, thyroid cancer, Hair loss, heat intolerance or cold intolerance Skin Skin: No rash or changing moles Musc Musculoskeletal: Yes back problems; No arthritis, rheumatoid arthritis, gout or joint pain Cardio Cardiovascular: No murmur, pacemaker, heart disease, atrial fibrillation, high blood pressure, heart attack, heart stent, palpitations, shortness of breath with exertion or chest pain Psych Psychiatric: Yes anxiety; No depression or hearing voices Resp Respiratory: No shortness of breath, No sleep apnea, No cough, No COPD, No asthma, No emphysema andNo wheezing Gastro Gastrointestinal: Yes abdominal pain, No nausea or vomiting, No diarrhea, No constipation, Yes blood in stool, No acid reflux, Yes hemorrhoids, No ulcers, Yes gallbladder problem and No black,tarry stools Jose Luis Hematologic: No blood thinners, No blood disorders, No bleeding, No anemia and No blood clots Neuro Neurologic: No numbness, No tingling and No weakness Exam Const General: cooperative, comfortable, no acute distress and well developed HENMT Head: normal to inspection Eyes General: appearance normal, both eyes and all related structures Neck Neck: normal visual inspection Resp Effort & Inspection: normal respiratory effort and able to speak in complete sentences GI Inspection: normal to inspection Other: Perirectal examination revealed fairly typical appearing external hemorrhoids however his internal hemorrhoids do appear swollen and inflamed. I suspect someare prolapsing at times as well based on their appearance Assessment and Plan Assessment and Plan (1) Abnormal biliary HIDA scan: Status: Acute (2) Hemorrhoids: Status: Acute Plan: The patient is a 39-year-old male with symptomatic internal hemorrhoids as well as biliary dyskinesia. Patient admits that his hemorrhoids are probably the more problematic issue. I would not recommend surgical intervention on both issues at the same time. I have recommended that we begin with a Doppler guidedhemorrhoid artery ligation to address his internal hemorrhoids. We discussed the detailsof the planned procedure and he wishes to proceed. We can certainlyproceed with cholecystectomy after he recovers from the hemorrhoid surgery. He is agreeable this plan. In the meantime I recommendeda low fat diet Coding Level of Care Code Off vis,new,level 4 Diagnoses Abnormal biliary HIDA scan R94.8 Hemorrhoids K64.9 04/01/25 1135 k > Date _ Jonathan Antonio MD Cosigner Signature: Date (if applicable) CC: BOBY Leigh; BOBY Aly ~ [facility]07-07-2025 Nuclear medicine Diagnostic study note [facility] Imaging Services [address] [place] [address] Hepatobilliary Img w/Pharm Int MR#: [id number] Acct: [id number] Name: ELAINA RENE BIANCA Rep #: [id number] : 1985 M 39 From: Adrian Hills MD PCP: BOBY Ordaz Status: REG CL I Study:Hepatobilliary Img w/Pharm Int Date of Exam: 01/28/25 Exam# [id number] Ordering Dr: Bess Leigh PROCEDURE: HEPATOBILLIARY IMG W/PHARM INT 01/28/2025 REASON FOR EXAM: RUQ PAIN TECHNIQUE: Intravenous Choletec with planar imaging of the abdomen. 1.6 Mcg Kinevac intravenously approximately 60 minutes after the radiopharmaceutical with additional anterior imaging and a region of interest drawn around the gallbladder to calculate a time-activity curve. RADIOPHARMACEUTICAL: Technetium 99 M mebrofenin DOSE 5.1mCi intravenous. COMPARISON: None. FINDINGS: There is satisfactory uptake and excretion of the radiopharmaceutical by the liver. Normal gallbladder visualization with the gallbladder identified by 15 minutes. Small bowel activity is also seen by the 15 minute film. Gallbladder Ejection Fraction: 0 % (Normal is >35%) NM/Hepatobilliary Img w/Pharm Int IMPRESSION: 1. Absence of gallbladder ejection following cholecystokinin administration. This may be due to chronic cholecystitis. 2. No evidence of common duct obstruction. 3. Negative hepatobiliary scan, otherwise. Reading Location: [address] CC: BOBY Leigh; BOBY Dominique Statistical Engineer: Signed [facility]05-22-2025 Evaluation note* Diagnosis Onset Date Resolution Status Admit Date Right flank pain acute November 9:55am RUQ pain acute December 13, 2024 9:55am Steatosis, liver acute November 9:55am Hemorrhoids acute February 07 11:38am RUQ pain acute February 07 11:38am Abnormal biliary HIDA scan acute April 01, 2025 9:58am Hemorrhoids acute March 9:58am [facility] Work Phone: 1(426) 317-455905-01-2025 Evaluation note* Diagnosis Onset Date Resolution Status Admit Date Lower abdominal pain acute November 22, 2024 9:12am Rectal bleeding acute November 22, 2024 9:12am Right flank pain acute November 9:55am RUQ pain acute December 13, 2024 9:55am Steatosis, liver acute November 9:55am [facility] Work Phone: 1(828) 884-720805-01-2025 [facility] Medical Records Department [address] [place] [address] History Physical Exam 11/22/24 1037 MR#: [id number] Acct: [id number] Name: ELAINA RENE AM Rep #: [id number] : 1985 39 From: Jignesh Friend DO PCP: Tc Aly NP-C Status:REG [facility] Location: [place] [address] HPI - General General Date of Admission: 11/22/24 Date of Service: 11/22/24 Chief Complaint: Lower GI bleeding HPI Narrative ELAINA RENE, is a 39 M who presentsChief Complaint: pain and bleeding Details: ELAINA RENE, is a 39 M who presents to [...] for >2 year with (more content not included)...[facility]03-12-2025 Radiology Diagnostic study note [facility] Imaging Services [address] [place], [place] [address] Abdomen Limited MR#: [id number] Acct: [id number] Name: ELAINA RENE Rep #: [id number] : 1985 M 39 From: Brandt Myers MD PCP: BOBY Ordaz Status: REG CL I Study:Abdomen Limited Date of Exam: 09/22 09/18 Exam# [id number] Ordering Dr: Bess Leigh PROCEDURE: ABDOMEN LIMITED [...] Fatty infiltration of the liver. Reading Location: [place] [address] CC: BOBY Leigh; BOBY Aly ~ Statistical Engineer: Signed [facility]02-19-2025 Evaluation note* Diagnosis Onset Date Resolution Status Admit Date Lower abdominal pain acute Febr uary 2024 10:28am Nausea & vomiting acute Februar 2024 10:28am Rectal bleeding acute September 12, 2024 10:28am Abdominal symptoms noneactive Februa 2024 10:28am [facility] Work Phone: 1(840) 524-656502-19-2025 Evaluation note* Diagnosis Onset Date Resolution Status Admit Date Lower abdominal pain acute Febr uary 2024 10:28am Nausea & vomiting acute Februar y 2024 10:28am Rectal bleeding acute September 12, 2024 10:28am Abdominal symptoms noneactive Februa 2024 10:28am Lower abdominal pain acute November 22, 2024 9:12am Rectal bleeding acute November 22, 2024 9:12am Right flank pain acute November 9:55am RUQ pain acute December 13, 2024 9:55am Steatosis, liver acute November 9:55am [facility] Work Phone: 1(566) 825-827901-29-2025 Telephone encounter Note* Telephone Encounter - Shawn Hawkins - 08/22/2024 5:12 PM EST Faxed referral for Gastroenterology and Demographic sheet. Pt called stating he was having a hard time getting a hold of Dr. Hampton's office. Called office and talk to scheduling she asked us to refax order. Faxed to [phone] [facility]01-29-2025 Miscellaneous Notes* Telephone Encounter - Shawn Hawkins - 08/22/2024 5:12 PM EST Faxed referral for Gastroenterology and Demographic sheet. Pt called stating he was having a hard time getting a hold of Dr. Hampton's office. Called office and talk to scheduling she asked us to refax order. Faxed to [phone] documented in this encounterFairfield Medical Center01-02-2025 Telephone encounter Note * Telephone Encounter - Concepción Singleton MA - 07/26/2024 9:58 AM EST Patient's girlfriend on HIPAA informed of results and states patient will go next week to complete the rest of the labs. Concepción Singleton MA [facility]01-02-2025 Telephone encounter Note* Telephone Encounter - Concepción Singleton MA - 07/26/2024 9:58 AM EST ----- Message from Joyce Cullen APRN.CUT OFF SAW TENDER METAL sent at 07/24/2024 11:53 AM EST ----- Lipid panel is normal- did he not get the rest of the labs done? [facility]01-02-2025 Miscellaneous Notes* Telephone Encounter - Concepción Singleton MA - 07/26/2024 9:58 AM EST Patient's girlfriend on HIPAA informed of results and states patient will go next week to complete the rest of the labs. Concepción Singleton MA * Telephone Encounter - Concepción Singleton MA - 07/26/2024 9:58 AM EST ----- Message from Joyce Cullen APRN.CUT OFF SAW TENDER METAL sent at 07/24/2024 11:53 AM EST ----- Lipid panel is normal- did he not get the rest of the labs done? documented in this encounterFairfield Medical Center12-31-2024 Instructions* Patient Instructions* Joyce Cullen APRN.CNP - 07/24/2024 10:46 AM EST Images [...] Light white/wheat Isi-Whole wheat Pumpernickel Whole wheat [place] 3 1/2 inches 2 slices 7 inches [...] Squash (winter) Green peas, cooked Avila beans [place], cooked 1/2 cup 1/2 cup 1/2 cup 1 medium 1/2 cup 1/2 cup 1/2 cup 1/2 cup 1/2 cup 4 6 5 3 4 3 4 7 2 1 3 1 1 2 2 1 3 trace Nuts and Seeds Almonds Peanuts Butler seeds Walnuts 1/4 cup 1/4 cup 1/4 cup 1/4 cup 3 3 3 2 1 1 1 trace Fruits Apple with skin Banana Blueberries Grapefruit [place] Pear with skin Prunes Strawberries 1 medium 1 medium 1 cup 1/2 cup 1 medium 1 medium 3 1 cup 3 2 2 1 3 4 2 4 1 1 trace 1 2 2 1 1 Vegetables, non-starchy Broccoli [place] sprouts Cabbage-green Carrot Cauliflower Green beans Kale Spinach Squash (zucchini) 1/2 cup 1/2 cup 1 cup, fresh 1/2 cup cooked 1/2 cup cooked 1/2 cup 1/2 cup 1/2 cup 1/2 cup 3 4 2 2 1 2 3 2 1 1 2 1 1 trace 1 1 1 1 Copyright 4782-6201 The [employer]. All rights reserved. This information is provided by the [facility] and is not intended to replace the medical advice of your doctor or health care provider. Please consult your health care provider for advice about a specific medical condition. For additional health information, please contact the Center for Consumer Health Information at the [facility] or toll-free extension [phone]. If you prefer, you may visit [email or web address] or [email or web address]. This document was last reviewed on: 2009 index#[id number] documented in this encounterFairfield Medical Center12-31-2024 NoteHNO ID: [id number] Author: JOYCE CULLEN APRN.CNP Service: ? Author Type: Nurse Practitioner Type: Progress Notes Filed: 07/24/2024 12:12 Note Text: CHIEF COMPLAINT: Elaina Rene is a 39 year old male who [...] Current Outpatient Medications Medication Sig Dispense Refill dizgpglyq-xftcveczh-qfxiphdm-white petrolatum (PREPARATION H) 0.25-1 % crea by [...] management requirements were given to patient. Joyce Cullen APRN.[facility]12-31-2024 History of Present illness Narrative* [facility]ullen [facility]N.[facility] - 07/24/2024 10:28 AM EST CHIEF COMPLAINT: Elaina Rene is a 39 year old male who [...] Current Outpatient Medications Medication Sig Dispense Refill jhttxqefu-hmuhzqstt-bbjmwghm-white petrolatum (PREPARATION H) 0.25-1 % crea by [...] management requirements were given to patient. Joyce Cullen APRN.CUT OFF SAW TENDER METAL documented in this encounterFairfield Medical Center12-11-2024 Telephone encounter Note * Telephone Encounter - Nafisa Alvarez - 07/04/2024 3:51 PM EST No Show Documentation Elaina Rene no showed for an appointment on 07/04/2024 [...] Nafisa Alvarez July 04, 2024 3:52 PM [facility]12-11-2024 Miscellaneous Notes* Telephone Encounter - Nafisa Alvarez - 07/04/2024 3:51 PM EST No Show Documentation Elaina Rene no showed for an appointment on 07/04/2024 [...] 04, 2024 3:52 PM documented in this encounterFairfield Medical Center10-05-2023 Instructions* Patient Instructions* Joyce Cullen APRN.CNP - 04/28/2023 10:39 AM EDT [facility] [id number] [place] [address] [address] [place] [address] Clinics: Tuesday - : 8:00 am - 4:30 pm Tuesday: 8:00 am - 4:00 pm Endoscopy Center: Tuesday - Tuesday: 7:00 am - 3:30 pm T: documented in this encounterFairfield Medical Center10-05-2023 History of Present illness Narrative* Joyce Cullen APRN.CNP - 04/28/2023 10:29 AM EDT CHIEF COMPLAINT: Elaina Rene is a 37 year old male who [...] history is provided by the patient. No language translator was used. PAST MEDICAL HISTORY Diagnosis Date [...] management requirements were given to patient. Joyce Cullen APRN.KEY documented in this encounterFairfield Medical Center06-01-2023 Miscellaneous Notes* Telephone Encounter - Leonie Altamirano MA - 12/23/2022 2:40 PM EDT Faxed. Lm on pt. Vm that it has been faxed. Leonie Altamirano MA * Telephone Encounter - Tc Aly APRN.CNP - 12/23/2022 1:58 PM EDT Thank you, orders placed. Tc Aly APRN.KEY * Telephone Encounter - Rosa Srera - 12/22/2022 2:52 PM EDT Friend, Amy Hicksuer, called and requested a referral to [facility] in [place]. Would like it faxed to [phone]. [facility]... Patient has had a Distance Health visit 11/25/22 with [facility]. documented in this encounterFairfield Medical Center05-04-2023 History of Present illness Narrative* Genevieve Segovia [...] visit. Either the patient or their legal sales representative graphic art has been informed of the risks and benefits of -- and alternatives to -- treatment through a remote evaluation andconsents to proceed with the evaluation remotely. This is a virtual visit using Audio only. It required patient-provider interaction for the medical decision making as documented below. CC: rectal bleeding HPI: Elaina Rene is a 37 year old male who [...] discuss results. The patient is to use xdah-vfq-zwecgou hemorrhoid medications as neededfor bleeding. I spent a total of 26 minutes on the date of the service which included preparing to see the patient, completing clinical documentation, counseling and educating the patient/family/caregiver, and ordering medications, tests, or procedures. documented in this encounterFairfield Medical Center03-27-2023 NoteHNO ID: [id number] Author: Shlomo Haas MD Service: ? Author [...] pt with verbalization of understanding. Shlomo Haas [facility]03-27-2023 Nurse Note* Colton Wheeler Ma - [...] Nurse: Colton Wheeler Ma documented in this encounterFairfield Medical Center03-27-2023 Instructions* Patient Instructions* Colton Wheeler Ma - 10/18/2022 10:48 AM EDT Images from the original note were not included. HOME GOING/DISCHARGE INSTRUCTIONS FOR VASECTOMY PATIENTS Please call the following numbers with any questions or concerns: Victor M [facility]endes Offices: #[phone], and also #[phone] [facility] patients: [phone] M-F 8am-5pm, after hours [phone] ACTIVITIES Avoid strenuous physical exercise and heavy [...] lump in the scrotum call the office Martha([phone] or [phone]) Zoya ([phone]) or go the hospital emergency room documented in this encounterFairfield Medical Center03-27-2023 History of Present illness Narrative* Shlomo Haas [...] understanding. Shlomo Haas MD documented in this encounterFairfield Medical Center03-08-2023 Miscellaneous Notes* Telephone Encounter - Leonie Altamirano MA - 09/29/2022 5:03 PM EST Left message on VM with all information. (Ok per lifetime consent). Leonie Altamirano MA * Telephone Encounter - Leonie Altamirano MA - 09/29/2022 5:02 PM EST ----- Message from Tc Aly APRN.CNP sent at 09/29/2022 4:19 PM EST ----- Normal labs besides mild elevation of cholesterol, recommend low fat diet, increase activity. Tc Aly APRN.CNP documented in this encounter[facility]23 Miscellaneous Notes* Addendum Note - Tc Aly APRN.CNP - 09/20/2022 1:12 PM ESTAddended by: TC ALY on: 09/20/2022 01:12 PM Modules accepted: Orders * Telephone Encounter - Tc Aly APRN.CNP - 09/20/2022 1:11 PM EST I just tried sending in a different suppository for patient. Tc Aly APRN.CNP * Telephone Encounter - Leonie Altamirano MA - 09/20/2022 10:44 AM EST Prior authorization done for hydrocortisone acetate 25mg suppositories was denied . Please advise. Rosales code through cover my meds was [id number]. Leonie Altamirano MA documented in this encounterFair[facility] Center02-24-[facility]23 History of Present illness Narrative* Tc Aly APRN.CUT OFF SAW TENDER METAL - 09/17/2022 10:12 AM EST This note was created using VasoNovariter. Subjective Elaina Rene is a 37 year old male here [...] He is not toxic-appearing. HENT: Mouth/Throat: Lips: [place]. Mouth: Mucous membranes are moist. Pharynx: Oropharynx [...] - ICD9: 455.9, ICD10: K64.4 Tc Aly APRN.CUT OFF SAW TENDER METAL documented in this encounterFair[facility] Center01-31-2023 Miscellaneous Notes* Telephone Encounter - Rosemarie Summers [...] Summers LPN * Telephone Encounter - Estefany Gutierrez RN - 08/24/2022 12:04 PM EST Pt called wanting to know status of pre authorization for insurance for pending vasectomy, had consultation in May. Please update patient and advise.Estefany Gutierrez RN documented in this encounterFairfield [facility] Center11-22-2022 NoteHNO ID: [id number] Author: Elaina Strickland PA-C Service: ? Author Type: Physician Fire Chief Deputy Type: Progress Notes Filed: 06/15/2022 1:48 PM Note Text: Elaina Rene June 15, 2022 Referred by: CC: Desires [...] attests that he watched and understood the A Vasectomy video and read and understood the [...] 50% of time in counseling ROBYN Dia, [place], PA-[facility] note* Diagnosis Hemorrhoids, unspecified hemorrhoid type- Primary documented in this encounter [facility] note* Diagnosis Rectal bleeding- Primary [...] hemorrhoidal skin tags documented in this encounter [facility] note* Diagnosis Encounter for sterilization- Primary Sterilization documented in this encounter [facility] note* Diagnosis Rectal bleeding- Primary Hemorrhage of rectum and anus Periumbilical abdominal pain Abdominal pain, periumbilic documented in this encounter [facility] note* Diagnosis Rectal bleeding- Primary Hemorrhage of rectum and anus documented in this encounter [facility] note* Diagnosis Umbilical hernia without obstruction and without gangrene- Primary Rectal bleeding Hemorrhage of rectum and anus Hemorrhoids, unspecified hemorrhoid type Lower abdominal pain Abdominal pain, other specified site documented in this encounter [facility] note* Diagnosis Rectal bleeding- Primary Hemorrhage of rectum and anus Generalized abdominal pain Abdominal pain, generalized Hemorrhoids, unspecified hemorrhoid type Screening for lipid disorders documented in this encounter [facility] (narrative)* Outpatient Procedure (Routine) - Pending Review Specialty Diagnoses / Procedures Referred By Denise t Referred To Contact [facility] Diagnoses Rectal bleeding Procedures COLONOSCOPY DIAGNOSTIC COLONOSCOPY FLX DX W/COLLJ SPEC WHEN PFRMGenevieve Musa PA-C [address] [address] [facility] [address] [place] [id number] Referral ID Status Reason Start Date Expiration Date Visits Requested Visits Authorized [id number] Pending Review Auto-Generat ed Referral 11/25/2022 11/26/2023 1 1 * Diagnostic Procedure Only (Routine) - Pending Review Specialty Diagnoses / Procedures Referred By Contac t Referred To Contact XR IMAGING Diagnoses Periumbilical abdominal pain Procedures XR ABDOMEN 2V ROUTINE SUPINE W UPRIGHT/DECUB/CTL RADIOLOGIC EXAM ABDOMEN 2 VIEWS Genevieve Segovia PA-C [address] [address] Xr Imaging Referral ID Status Reason Start Date Expiration Date Visits Requested Visits Authorized [id number] Pending Review Auto-Generat ed Referral 11/25/2022 12/25/2023 1 1 [facility] CenterReason for referral (narrative)No reason for referral information availableWKettering Health [facility] Work Phone: Summary Purpose Family History No Family History Records FoundNo Family History Records FoundNo Family History Records FoundNo Family History Records Found Advance Directives No Advanced Directives Records Found Advance Directive Response Recorded Date/ Time Do you have a Healthcare Power of Corporate Compliance Officer? No November 19, 2024 2:31pm Reason for Referral Specialty Diagnoses / Procedures Referred By Contact Referred To Contact Gastroenterology / [facility] Department Diagnoses Rectal bleeding Rectal pain Lower abdominal pain Procedures CONSULT TO GASTROENTEROLOGY OFFICE/OUTPATIENT [facility] 60-74 MINUTES Tc Aly, COMMUNICATIONS BILLING ANALYST.CUT OFF SAW TENDER METAL [address] [place] [address] Hector Perera MD 1 [facility], [address] [place] [address] Referral ID Status Reason Start Date Expiration Date Visits Requested Visits Authorized [id number] Authorized PCP Requested Referral 09/17/2022 09/17/2023 1 1 Specialty Diagnoses / Procedures Referred By Contac t Referred To Contact Diagnoses Rectal bleeding Procedures CONSULT TO GASTROENTEROLOGY OFFICE/OUTPATIENT [facility] 60-74 MINUTES Tc Aly, COMMUNICATIONS BILLING ANALYST.CUT OFF SAW TENDER METAL [address] [place] [address] FriendJignesh, DO [address] [facility] [address] [place] [address] Referral ID Status Reason Start Date Expiration Date Visits Requested Visits Authorized [id number] Authorized PCP Requested Referral 12/23/2022 12/23/2023 1 1 Specialty Diagnoses / Procedures Referred By Contac t Referred To Contact Diagnoses Rectal bleeding Hemorrhoids, unspecified hemorrhoid type Rectal pain Lower abdominal pain Procedures CONSULT TO GASTROENTEROLOGY OFFICE/OUTPATIENT [facility] 60-74 MINUTES Joyce Cullen, TRISTAN.CUT OFF SAW TENDER METAL [address] [place] [address] [facility] [address] [place] [address] Referral ID Status Reason Start Date Expiration Date Visits Requested Visits Authorized [id number] Authorized PCP Requested Referral 04/28/2023 04/27/2024 1 1 Specialty Diagnoses / Procedures Referred By Contac t Referred To Contact Diagnoses Rectal bleeding Hemorrhoids, unspecified hemorrhoid type Procedures CONSULT TO GASTROENTEROLOGY OFFICE/OUTPATIENT [facility] 60 MINUTES Joyce Cullen, COMMUNICATIONS BILLING ANALYST.CUT OFF SAW TENDER METAL [address] [place] [address] Friend, Jignesh Dia, DO [address] [address] Referral ID Status Reason Start Date Expiration Date Visits Requested Visits Authorized [id number] Authorized PCP Requested Referral 07/24/2025 1 1 Chief Complaint and Reason for Visit Chief Complaint Admit Date Abdominal complaints September 12, 2024 10:28am LOWER ABD PAIN, NAUSEA, VOMITING September 222024 8:29am Reason for Visit Admit Date Lower abdominal pain September 12, 2024 10:28am Nausea & vomiting September 12, 2024 10:28am Rectal bleeding September 12, 2024 10:28am Abdominal symptoms September 12, 2024 10:28am Chief Complaint Admit Date Abdominal complaints September 12, 2024 10:28am LOWER ABD PAIN, NAUSEA, VOMITING September 222024 8:29am 3 M FU December 13, 2024 9:55a m Reason for Visit Admit Date Lower abdominal pain September 12, 2024 10:28am Nausea & vomiting September 12, 2024 10:28am Rectal bleeding September 12, 2024 10:28am Abdominal symptoms September 12, 2024 10:28am Lower abdominal pain November 22, 2024 9:12a m Rectal bleeding November 22, 2024 9:12am Right flank pain December 13, 2024 9:55a m RUQ pain December 13, 2024 9:55a m Steatosis, liver December 13, 2024 9:55a m Chief Complaint Admit Date LOWER ABD PAIN, NAUSEA, VOMITING September 222024 8:29am 3 M FU December 13, 2024 9:55a m RIGHT FLANK PAIN January 28, 2025 12:58 pm Reason for Visit Admit Date Lower abdominal pain November 22, 2024 9:12a m Rectal bleeding November 22, 2024 9:12am Right flank pain December 13, 2024 9:55a m RUQ pain December 13, 2024 9:55a m Steatosis, liver December 13, 2024 9:55a m Chief Complaint Admit Date 3 M FU December 13, 2024 9:55a m RIGHT FLANK PAIN January 28, 2025 12:58 pm TEST RESULTS February 07, 2025 11:3 8am Chief Complaint Admit Date 3 M FU December 13, 2024 9:55a m RIGHT FLANK PAIN January 28, 2025 12:58 pm TEST RESULTS February 07, 2025 11:3 8am ABNORMAL HIDA & HEMORRHOIDS March 9:58am Reason for Visit Admit Date Right flank pain December 13, 2024 9:55a m RUQ pain December 13, 2024 9:55a m Steatosis, liver December 13, 2024 9:55a m Hemorrhoids February 07, 2025 11:3 8am RUQ pain February 07, 2025 11:3 8am Abnormal biliary HIDA scan March 9:58am Hemorrhoids April 01, 2025 9:58am Additional Source Comments (unrecognized sect ion and content) No Status Records FoundNo Status Records FoundNo Status Records FoundNo Status Records Found INFORMATION SOURCE (unrecogn ized section and content) DATE CREATED AUTHOR 08/07/2019 [facility] DATE CREATED AUTHOR AUTHOR'S ORGANIZ ATION 12/31/2022 [facility] DATE CREATED AUTHOR AUTHOR'S ORGANIZ ATION 08/24/2024 [facility] DATE CREATED AUTHOR AUTHOR'S ORGANIZ ATION 04/17/2025 [facility] Source Comments (unrecognize d section and content) In the event this informatio n is protected by the Federal Confidentiality of Alcohol and Drug Abuse Patient Records regulations: The Federal rules restrict any use of the information to criminally investigate or prosecute any alcohol or drug abuse patient.[facility] CenterIn the event this information is protected by the Federal Confidentiality of Alcohol and Drug Abuse Patient Records regulations: The Federal rules restrict any use of the information to criminally investigate or prosecute any alcohol or drug abuse patient.[facility] CenterIn the event this information is protected by the Federal Confidentiality of Alcohol and Drug Abuse Patient Records regulations: The Federal rules restrict any use of the information to criminally investigate or prosecute any alcohol or drug abuse patient.[facility] CenterIn the event this information is protected by the Federal Confidentiality of Alcohol and Drug Abuse Patient Records regulations: The Federal rules restrict any use of the information to criminally investigate or prosecute any alcohol or drug abuse patient.[facility] CenterIn the event this information is protected by the Federal Confidentiality of Alcohol and Drug Abuse Patient Records regulations: The Federal rules restrict any use of the information to criminally investigate or prosecute any alcohol or drug abuse patient.[facility] CenterIn the event this information is protected by the Federal Confidentiality of Alcohol and Drug Abuse Patient Records regulations: The Federal rules restrict any use of the information to criminally investigate or prosecute any alcohol or drug abuse patient.[facility] CenterIn the event this information is protected by the Federal Confidentiality of Alcohol and Drug Abuse Patient Records regulations: The Federal rules restrict any use of the information to criminally investigate or prosecute any alcohol or drug abuse patient.[facility] CenterIn the event this information is protected by the Federal Confidentiality of Alcohol and Drug Abuse Patient Records regulations: The Federal rules restrict any use of the information to criminally investigate or prosecute any alcohol or drug abuse patient.[facility] CenterIn the event this information is protected by the Federal Confidentiality of Alcohol and Drug Abuse Patient Records regulations: The Federal rules restrict any use of the information to criminally investigate or prosecute any alcohol or drug abuse patient.[facility] CenterIn the event this information is protected by the Federal Confidentiality of Alcohol and Drug Abuse Patient Records regulations: The Federal rules restrict any use of the information to criminally investigate or prosecute any alcohol or drug abuse patient.[facility] CenterIn the event this information is protected by the Federal Confidentiality of Alcohol and Drug Abuse Patient Records regulations: The Federal rules restrict any use of the information to criminally investigate or prosecute any alcohol or drug abuse patient.[facility] CenterIn the event this information is protected by the Federal Confidentiality of Alcohol and Drug Abuse Patient Records regulations: The Federal rules restrict any use of the information to criminally investigate or prosecute any alcohol or drug abuse patient.[facility] Reason for Visit (unrecogniz ed section and content) Reason Comments Massage Therapist - Other Reason Comments Medication Problem Reason [...] Care Teams (unrecognized sec tion and content) Energy Efficiency Finance Manager Relationship Specialty Start Date End Date Tc Aly APRN.CUT OFF SAW TENDER METAL [address] [place] [address] PCP - General Family Medicine 12/15/16 Genevieve Barcenas (Historical) [address] [place] [address] Referring Family Medicine 05/20/22 Energy Efficiency Finance Manager Relationship Specialty Start Date End Date Tc Aly APRN.CUT OFF SAW TENDER METAL [address] [facility] [place] [address] PCP - General Family Medicine 12/15/16 Genevieve Barcenas (Historical) [address] [facility] [place] [address] Referring Family Medicine 05/20/22 Energy Efficiency Finance Manager Relationship Specialty Start Date End Date Tc Aly, COMMUNICATIONS BILLING ANALYST.CUT OFF SAW TENDER METAL [address] [place] [address] PCP - General Family Medicine 12/15/16 Genevieve Barcenas (Historical) [address] [place] [address] Referring Family Medicine 05/20/22 Energy Efficiency Finance Manager Relationship Specialty Start Date End Date Tc Aly COMMUNICATIONS BILLING ANALYST.CUT OFF SAW TENDER METAL [address] [facility] [place] [address] PCP - General Family Medicine 12/15/16 Genevieve Barcenas (Historical) [address] [facility] [place] [address] Referring Family Medicine 05/20/22 Energy Efficiency Finance Manager Relationship Specialty Start Date End Date Tc Aly COMMUNICATIONS BILLING ANALYST.CUT OFF SAW TENDER METAL [address] [place] [address] PCP - General Family Medicine 12/15/16 Genevieve Barcenas (Historical) [address] [facility] [place] [address] Referring Family Medicine 05/20/22 Energy Efficiency Finance Manager Relationship Specialty Start Date End Date Tc Aly, COMMUNICATIONS BILLING ANALYST.CUT OFF SAW TENDER METAL [address] [facility] [address] PCP - General Family Medicine 12/15/16 Genevieve Barcenas (Historical) [address] [facility] [place] [address] Referring Family Medicine 05/20/22 Energy Efficiency Finance Manager Relationship Specialty Start Date End Date Tc Aly COMMUNICATIONS BILLING ANALYST.CUT OFF SAW TENDER METAL [address] [place] [address] PCP - General Family Medicine 12/15/16 Genevieve Barcenas (Historical) [address] [place] [address] Referring Family Medicine 05/20/22 Energy Efficiency Finance Manager Relationship Specialty Start Date End Date Tc Aly, COMMUNICATIONS BILLING ANALYST.CUT OFF SAW TENDER METAL [address] [place] [address] PCP - General Family Medicine 12/15/16 Genevieve Barcenas (Historical) [address] [place] [address] Referring Family Medicine 05/20/22 Energy Efficiency Finance Manager Relationship Specialty Start Date End Date Tc Aly COMMUNICATIONS BILLING ANALYST.CUT OFF SAW TENDER METAL [address] [place] [address] PCP - General Family Medicine 12/15/16 Genevieve Barcenas (Historical) [address] [place] [address] Referring Family Medicine 05/20/22 Energy Efficiency Finance Manager Relationship Specialty Start Date End Date Tc Aly COMMUNICATIONS BILLING ANALYST.CUT OFF SAW TENDER METAL [address] [place] [address] PCP - General Family Medicine 12/15/16 Genevieve Barcenas (Historical) [address] [place] [address] Referring Family Medicine 05/20/22 Energy Efficiency Finance Manager Relationship Specialty Start Date End Date Tc Aly COMMUNICATIONS BILLING ANALYST.CUT OFF SAW TENDER METAL [address] [place] [address] PCP - General Family Medicine 12/15/16 Genevieve Barcenas (Historical) [address] [place] [address] Referring Family Medicine 05/20/22 Team Status: Active Member Role Status Dates JESSICA Ordaz NPC Primary Care Provider Active Team Status: Inactive Member Role Status Dates No Primary Care Physician Primary Care Provider Active Start: September 12, 2024 End: September 12, 2024 No Primary Care Physician Referring Provider Active Start: September 12, 2024 End: September 12, 2024 BOBY Lewis Attending Provider Active Start: September 12, 2024 End: September 12, 2024 Team Status: Inactive Member Role Status Dates JESSICA Ordaz NPC Primary Care Provider Active Start: September 12, 2024 End: September 12, 2024 BOBY Lewis Attending Provider Active Start: September 12, 2024 End: September 12, 2024 BOBY Lewis Referring Provider Active Start: September 12, 2024 End: September 12, 2024 Team Status: Inactive Member Role Status Dates Tc Aly SNAKE CHARMER, SNAKE CHARMER-C Primary Care Provider Active Start: October 03, 2024 End: October 03, 2024 Bess Leigh SNAKE CHARMER-C Attending Provider Active Start: October 03, 2024 End: October 03, 2024 Bess Leigh , SNAKE CHARMER-C Referring Provider Active Start: October 03, 2024 End: October 03, 2024 Team Status: Inactive Member Role Status Dates Tc Aly SNAKE CHARMER, SNAKE CHARMER-C Primary Care Provider Active Start: November 22, 2024 End: November 22, 2024 Tc Aly SNAKE CHARMER, SNAKE CHARMER-C Referring Provider Active Start: November 22, 2024 End: November 22, 2024 Dr. Jignesh Hampton , Attending Provider Active Start: November 22, 2024 End: November 22, 2024 Team Status: Active Member Role Status Dates Tc Aly SNAKE CHARMER, SNAKE CHARMER-C Primary Care Provider Active Start: November 22, 2024 Tc Aly SNAKE CHARMER, SNAKE CHARMER-C Referring Provider Active Start: November 22, 2024 Dr. Jignesh Hampton DO Attending Provider Active Start: November 22, 2024 Dr. Jignesh Hampton DO Other Provider Active St art: November 22, 2024 Team Status: Inactive Member Role Status Dates No Primary Care Physician Referring Provider Active Start: December 13, 2024 End: December 13, 2024 Bess Leigh SNAKE CHARMER-C Attending Provider Active Start: December 13, 2024 End: December 13, 2024 Tc Aly SNAKE CHARMER, SNAKE CHARMER-C Primary Care Provider Active Start: December 13, 2024 End: December 13, 2024 Team Status: Inactive Member Role Status Dates Tc Aly SNAKE CHARMER, SNAKE CHARMER-C Primary Care Provider Active Start: December 31, 2024 End: December 31, 2024 Bess Leigh SNAKE CHARMER-C Attending Provider Active Start: December 31, 2024 End: December 31, 2024 Bess Leigh SNAKE CHARMER-C Referring Provider Active Start: December 31, 2024 End: December 31, 2024 Team Status: Active Member Role/Relationship Status Dates Tc Aly SNAKE CHARMER, SNAKE CHARMER-C Primary Care Provider Active Team Status: Inactive Member Role/Relationship Status Dates Tc Aly SNAKE CHARMER, SNAKE CHARMER-C Primary Care Provider Active Start: October 03, 2024 End: October 03, 2024 Bess Legih SNAKE CHARMER-C Attending Provider Active Start: October 03, 2024 End: October 03, 2024 Bess Leigh SNAKE CHARMER-C Referring Provider Active Start: October 03, 2024 End: October 03, 2024 Team Status: Inactive Member Role/Relationship Status Dates Tc Aly SNAKE CHARMER, SNAKE CHARMER-C Primary Care Provider Active Start: November 22, 2024 End: November 22, 2024 Tc Aly SNAKE CHARMER, SNAKE CHARMER-C Referring Provider Active Start: November 22, 2024 End: November 22, 2024 Dr. Jignesh Hampton , Attending Provider Active Start: November 22, 2024 End: November 22, 2024 Team Status: Active Member Role/Relationship Status Dates Tc Aly SNAKE CHARMER, SNAKE CHARMER-C Primary Care Provider Active Start: November 22, 2024 Tc Aly NP, SNAKE CHARMER-C Referring Provider Active Start: November 22, 2024 Dr. Jignesh Hampton DO Attending Provider Active Start: November 22, 2024 Dr. Jignesh Hampton DO Other Provider Active St art: November 22, 2024 Team Status: Inactive Member Role/Relationship Status Dates No Primary Care Physician Referring Provider Active Start: December 13, 2024 End: December 13, 2024 Bess Leigh SNAKE CHARMER-C Attending Provider Active Start: December 13, 2024 End: December 13, 2024 Tc Aly SNAKE CHARMER, SNAKE CHARMER-C Primary Care Provider Active Start: December 13, 2024 End: December 13, 2024 Team Status: Inactive Member Role/Relationship Status Dates Tc Aly NP, SNAKE CHARMER-C Primary Care Provider Active Start: December 31, 2024 End: December 31, 2024 Bess Leigh SNAKE CHARMER-C Attending Provider Active Start: December 31, 2024 End: December 31, 2024 Bess Leigh , SNAKE CHARMER-C Referring Provider Active Start: December 31, 2024 End: December 31, 2024 Team Status: Inactive Member Role/Relationship Status Dates Tc Aly SNAKE CHARMER, SNAKE CHARMER-C Primary Care Provider Active Start: January 28, 2025 End: January 28, 2025 Bess Leigh , SNAKE CHARMER-C Attending Provider Active Start: January 28, 2025 End: January 28, 2025 Bess Leigh , SNAKE CHARMER-C Referring Provider Active Start: January 28, 2025 End: January 28, 2025 Team Status: Inactive Member Role/Relationship Status Dates Tc Aly SNAKE CHARMER, SNAKE CHARMER-C Primary Care Provider Active Start: November 22, 2024 End: November 22, 2024 Tc Aly SNAKE CHARMER, SNAKE CHARMER-C Referring Provider Active Start: November 22, 2024 End: November 22, 2024 Dr. Jignesh Hampton , Attending Provider Active Start: November 22, 2024 End: November 22, 2024 Team Status: Active Member Role/Relationship Status Dates Tc Aly SNAKE CHARMER, SNAKE CHARMER-C Primary Care Provider Active Start: November 22, 2024 Tc Aly SNAKE CHARMER, SNAKE CHARMER-C Referring Provider Active Start: November 22, 2024 Dr. Jignesh Hampton , DO Attending Provider Active Start: November 22, 2024 Dr. Jignesh Hampton , DO Other Provider Active St art: November 22, 2024 Team Status: Inactive Member Role/Relationship Status Dates No Primary Care Physician Referring Provider Active Start: December 13, 2024 End: December 13, 2024 Bess Leigh SNAKE CHARMER-C Attending Provider Active Start: December 13, 2024 End: December 13, 2024 Tc Aly SNAKE CHARMER, SNAKE CHARMER-C Primary Care Provider Active Start: December 13, 2024 End: December 13, 2024 Team Status: Inactive Member Role/Relationship Status Dates Tc Aly SNAKE CHARMER, SNAKE CHARMER-C Primary Care Provider Active Start: December 31, 2024 End: December 31, 2024 Bess Leigh SNAKE CHARMER-C Attending Provider Active Start: December 31, 2024 End: December 31, 2024 Bess Leigh SNAKE CHARMER-C Referring Provider Active Start: December 31, 2024 End: December 31, 2024 Team Status: Inactive Member Role/Relationship Status Dates Tc Aly SNAKE CHARMER, SNAKE CHARMER-C Primary Care Provider Active Start: January 28, 2025 End: January 28, 2025 Bess Leigh SNAKE CHARMER-C Attending Provider Active Start: January 28, 2025 End: January 28, 2025 Bess Leigh , SNAKE CHARMER-C Referring Provider Active Start: January 28, 2025 End: January 28, 2025 Team Status: Inactive Member Role/Relationship Status Dates Tc Aly SNAKE CHARMER, SNAKE CHARMER-C Primary Care Provider Active Start: February 07, 2025 End: February 07, 2025 Tc Aly NP, SNAKE CHARMER-C Referring Provider Active Start: February 07, 2025 End: February 07, 2025 Bess Leigh SNAKE CHARMER-C Attending Provider Active Start: February 07, 2025 End: February 07, 2025 Team Status: Inactive Member Role/Relationship Status Dates No Primary Care Physician Referring Provider Active Start: December 13, 2024 End: December 13, 2024 Bess Leigh SNAKE CHARMER-C Attending Provider Active Start: December 13, 2024 End: December 13, 2024 Tc Aly SNAKE CHARMER, SNAKE CHARMER-C Primary Care Provider Active Start: December 13, 2024 End: December 13, 2024 Team Status: Inactive Member Role/Relationship Status Dates Tc Aly SNAKE CHARMER, SNAKE CHARMER-C Primary Care Provider Active Start: December 31, 2024 End: December 31, 2024 Bess Leigh SNAKE CHARMER-C Attending Provider Active Start: December 31, 2024 End: December 31, 2024 Bess Leigh SNAKE CHARMER-C Referring Provider Active Start: December 31, 2024 End: December 31, 2024 Team Status: Inactive Member Role/Relationship Status Dates Tc Aly SNAKE CHARMER, SNAKE CHARMER-C Primary Care Provider Active Start: January 28, 2025 End: January 28, 2025 Bess Leigh SNAKE CHARMER-C Attending Provider Active Start: January 28, 2025 End: January 28, 2025 Bess Leigh SNAKE CHARMER-C Referring Provider Active Start: January 28, 2025 End: January 28, 2025 Team Status: Inactive Member Role/Relationship Status Dates Tc Aly SNAKE CHARMER, SNAKE CHARMER-C Primary Care Provider Active Start: February 07, 2025 End: February 07, 2025 Tc Aly SNAKE CHARMER, SNAKE CHARMER-C Referring Provider Active Start: February 07, 2025 End: February 07, 2025 Bess Leigh SNAKE CHARMER-C Attending Provider Active Start: February 07, 2025 End: February 07, 2025 Team Status: Inactive Member Role/Relationship Status Dates Tc Aly SNAKE CHARMER, SNAKE CHARMER-C Primary Care Provider Active Start: April 01, 2025 End: April 01, 2025 Dr. Jonathan Antonio MD Attending Provider Active Start: April 01, 2025 End: April 01, 2025 Bess Reese , SNAKE CHARMER-C Referring Provider Active Start: April 01, 2025 End: April 01, 2025 Goals (unrecognized section and content) Goals may be documented in a n alternate sectionGoals may be documented in an alternate section FOR RECORDS PERTAINING TO PATIENTS [...] BE BASED ON THE PRIMARY CLINICAL RECORDS. [employer] provides no warranty or guarantee of the accuracy or completeness of information in this document.
--- NOTE | 2025-04-18 12:20 | HP.PCM_ITS ---
HPI - General General Date of Admission: 04/18/25 Date of Service: 04/18/25 Chief Complaint: Hemorrhoid bleeding HPI Narrative ELAINA RENE, is a 39 M who presents today for elective Doppler guided hemorrhoid artery ligation surgery. Patient has been having issues with rectal bleeding for some time. He had a recent colonoscopy a couple of months ago which just showed hemorrhoids. He has tried conservative measures without success. I have offered him a Doppler guided hemorrhoid artery ligation surgery. He wishes to proceed [facility] Medical History Former smoker Smoker Abnormal biliary HIDA scan Wears glasses Depression Anxiety Marijuana use Fatty liver High cholesterol Migraine headache Home Medications ?Medication ?Instructions ?Recorded ?Last Taken ?Type pantoprazole 40 mg tablet,delayed 40 mg PO QDAY #90 ta bs 02/07/25 04/15/25 Rx release Diltiazem 2% / Lidocaine 5% #1 ea 02/15/25 Unknown Rx ointment (compound) (Diltiazem 2%/Lidocaine 5% ointment (compound)) Allergy/AdvReac Type Severity Reaction Status Date / Time No Known Allergies Allergy Verified 04/18/25 10:48 Surgical History History of colonoscopy Enlarged adenoids History of wisdom tooth extraction Social History Smoking Status: Current every day smoker (Patient smoked marijuana today.) tobacco type: cigarettes alcohol intake: never substance use type: does not use Vital Signs Vital Signs Vital Signs: 04/18/25 10:49 04/18/25 10:49 04/18/25 11:18 Temperature 97.9 F 97.9 F Temperature Source Temporal Pulse Rate 69 69 Respiratory Rate 14 14 Respiratory Pattern Normal Blood Pressure 109/67 109/67 Blood Pressure Mean 81 Blood Pressure Source Monitor Blood Pressure Position Semi-Fowlers Blood Pressure Location Left Arm Pulse Ox 98 98 Oxygen Delivery Method Room Air Room Air Weight Weight: 189 lb 6.033 oz Body Mass Index (BMI) 25.7 Physical Exam Const alert, oriented x3 and no apparent distress Assessment & Plan Assessment/Plan (1) Hemorrhoids: PLAN: Plan Patient is a 39-year-old male in need of a Doppler guided hemorrhoid artery ligation surgery for issues with rectal bleeding. We discussed the details of the planned procedure including risks benefits and alternatives. He wishes to proceed. Surgery will begin shortly
--- NOTE | 2025-04-18 13:24 | OP.PCM_ITS ---
Procedures Digestive 40xxx-49xxx: [address] Excision, Anus w/US guidance Operative Report (Standard) Operative Information Date of Procedure: 04/18/25 Pre-Operative Diagnosis: Symptomatic internal hemorrhoid Post-Operative Diagnosis: Same Surgery/Procedure Performed: Doppler guided hemorrhoid artery ligation research computing specialist: No Type of Anesthesia: General and Local RN Documented Start/Stop Times: Operation Date: 04/18/25 12:00 Case Time Into Pre-Op 04/18/25 10:29 Anesthesia Start 04/18/25 13:42 Into Room 04/18/25 13:42 Procedure Start 04/18/25 13:59 Procedure Start Time: 13:59 Procedure Stop Time: 14:29 Select all DRAINS/GRAFTS/IMPLANTS that apply: None Special Medications: None Estimated Blood Loss: Minimal Specimen collected: No Description of surgery: The patient is a 39-year-old male recently seen to the office with bleeding internal hemorrhoids. I offered him a Doppler guided hemorrhoid artery ligation surgery. We discussed the details of the planned procedure as well as the risks benefits and alternatives. He wished to proceed. The patient was brought to the operating today following informed consent. He was placed supine on the operative table with his arms outstretched on arm boards. A general anesthesia was induced. Once comfortably sedated, his legs were placed in a modified lithotomy position. The perineum and perianal area were then prepped and draped in the usual sterile manner. Digital rectal exam was then performed. There were no signs of masses. Next, the Doppler probe was then inserted first at the 12 o'clock position and was rotated in a clockwise direction such that at each point in which a dopplerable signal was identified, a 3-0 Vicryl suture was placed in a [id number] manner. This was then tied down. This effectively tied off each of the supplying hemorrhoidal vessels. A total of 7 sutures were placed in this manner around the circumference of the rectum. Hemostasis was excellent. A total of 30 cc of local anesthetic was then injected in a bilateral pudendal block manner. The patient was then awakened from anesthesia. He was then taken to recovery in good condition. Surgical Findings: See operative note Complications Complications: No Admit VTE Documentation VTE Present on Admission: No VTE Mechan Device Prophylaxis: SCD's VTE Pharm Prophylaxis ordered?: No Reason prophylaxis not ordered: Treatment Not Indicated
[2025-04-18] MEDS: Midazolam 2 MG/2 ML Syringe IV (13:42)
[2025-04-18] MEDS: Cefazolin 1 GM/5 ML Vial 2 GM IV (13:43)
[2025-04-18] MEDS: fentaNYL 100 MCG/2 ML Ampul IV (13:45)
[2025-04-18] MEDS: Lidocaine 1% (5 ml sdv) 5 ML Vial IV (13:45)
[2025-04-18] MEDS: Bupiv/Epi 0.25% 30 ML Vial (14:20)
--- NOTE | 2025-04-18 14:34 | PCM.POST.ANE ---
Anesthesia: Postop Eval I Current Vital Signs Temperature: 97.0 F Pulse Rate: 78 Blood Pressure: 117/69 Respiratory Rate: 20 Pulse Ox: 97 Oxygen Delivery Method: Room Air Assessment Airway patent: Yes Spontaneous unlabored respirations: Yes Mental status: Calm nausea: No Vomiting: No Anesthesia Complication: No Fluid Hydration Crystalloid volume administer (ml): 700 Total IV fluid infused: 700 Progress Note Anesthesia document: Postop Eval 1 completed: Yes
--- NOTE | 2025-04-18 14:37 | EX.PCM.DISCH ---
Discharge Instructions Diet Discharge Diet: Light diet - advance as tolerated Activity Discharge Activity: May Drive May shower in (days): 1 Lifting Restrictions: Keep lifting under 50 pounds for about 2 to 3 weeks Dressing / Incision Call your doctor if your incision/area has: Continuous Slow Oozing, Sudden Increased Bleeding, Increased Pain/ Swelling, Increased Redness and Foul Smelling Discharge Call your doctor if you observe: Fever of 101 or Higher Cleanse incision/area with: Soap & Water Follow Up Care Please Follow Up With: Jonathan Antonio MD When: 2 to 3 weeks. Please call office to schedule appointment Test Results: Test results from this visit will be discussed in further detail at your follow-up appointment, if applicable. Discharge Plan Admission Primary Reason for Your Visit: Hemorrhoid ligation surgery Attending Provider: Jonathan Antonio Primary Care Provider: Soni Lomeli NP Instructions Print Language: Frisian Discharge Orders/Prescriptions Prescriptions: New oxycodone 5 mg capsule 5 mg PO Q8H PRN (Reason: pain) 3 Days Qty: 5 0RF Continued pantoprazole 40 mg tablet,delayed release (DR/EC) 40 mg PO QDAY Qty: 90 1RF (DME) Diltiazem 2%/Lidocaine 5% ointment (compound) Ointment See Rx Instructions .Route Qty: 1 1RF Rx Instructions: Apply pea size amount to anus twice daily as needed for hemorrhoids Referrals / Follow Up: Soni Lomlei NP, STAFF DEVELOPMENT MANAGER-C [Primary Care Provider, Medical] Disposition Disposition (needs filled in before D/C Order can be placed): Home, Self Care
--- NOTE | 2025-04-18 15:36 | POSTOPAN2_ITS ---
Anesthesia Postop Eval I Sum Postop Eval Completion status Anesthesia document: Postop Eval 1 completed: Yes Anesthesia Postop Eval I Summary Anesthesia Postop Eval I Summary: Anesthesia Postop Eval I: Assessment Summary Airway patent Yes 04/18/25 14:35 [email or web address] Spontaneous unlabored Yes 04/18/25 14:35 [email or web address] respirations Mental status Calm 04/18/25 14:35 [email or web address] nausea No 04/18/25 14:35 [email or web address] Vomiting No 04/18/25 14:35 [email or web address] Anesthesia Postop Eval I: Fluid Summary Crystalloid volume administer 700 04/18/25 14:35 [email or web address] (ml) Colloids volume administered ( ml) Blood Product volume administered (ml) Total IV fluid infused 700 04/18/25 14:35 [email or web address] Anesthesia Postop Eval I: Summary Notes Anesthesia Complication No 04/18/25 14:35 [email or web address] Anesthesia Complication Comment: Post-operative progress note Anesthesia: Postop Eval II Evaluation Mental status: Awake and Calm Pain Level: 0 nausea: No Vomiting: No Complications Anesthesia Complication: No
--- NOTE | 2025-04-18 15:36 | PCM.POSTANE2 ---
Anesthesia Postop Eval I Sum Postop Eval Completion status Anesthesia document: Postop Eval 1 completed: Yes Anesthesia Postop Eval I Summary Anesthesia Postop Eval I Summary: Anesthesia Postop Eval I: Assessment Summary Airway patent Yes 04/18/25 14:35 FOOD SERVICE [email or web address] Spontaneous unlabored Yes 04/18/25 14:35 FOOD SERVICE [email or web address] respirations Mental status Calm 04/18/25 14:35 FOOD SERVICE [email or web address] nausea No 04/18/25 14:35 FOOD SERVICE [email or web address] Vomiting No 04/18/25 14:35 FOOD [email or web address] Anesthesia Postop Eval I: Fluid Summary Crystalloid volume administer 700 04/18/25 14:35 FOOD [email or web address] (ml) Colloids volume administered ( ml) Blood Product volume administered (ml) Total IV fluid infused 700 04/18/25 14:35 FOOD SERVICE [email or web address] Anesthesia Postop Eval I: Summary Notes Anesthesia Complication No 04/18/25 14:35 FOOD SERVICE [email or web address] Anesthesia Complication Comment: Post-operative progress note Anesthesia: Postop Eval II Evaluation Mental status: Awake and Calm Pain Level: 0 nausea: No Vomiting: No Complications Anesthesia Complication: No
== END 2025-04-18 17:09 | disposition home or self-care (01) ==
LOC: SDC 10:22 → AC 10:27
PROVIDERS: PCP Nurse Practitioner Family; Referring Provider Surgery; Visit Provider Surgery
PROC: (CPT 46948; principal; 2025-04-18 11:45)
DX: K64.8 Other hemorrhoids (principal); E78.00 Pure hypercholesterolemia, unspecified; F17.210 Nicotine dependence, cigarettes, uncomplicated; Z79.899 Other long term (current) drug therapy
CPT/HCPCS: 46948; 00902; J2405